=== PATIENT | male | born 1935 | race Caucasian/White ===

== ENCOUNTER 2018-06-23 08:48 | Emergency (ER) | payer OTHER ==
[2018-06-23 09:23] LABS: Absolute Monocytes 0.6 K/uL (0.1-1.3); Absolute Neutrophil 4.1 K/uL (1.8-8.0); Basophils % 0.9 % (0-1.3); Eosinophils % 4.2 % (0-4.4); Hematocrit 37.7 % (39.6-49.0); MPV 7.8 fL (7.6-11.3); Monocytes % 10.3 % (3.3-12.3); RBC Red Blood Cell Count 3.85 M/uL (4.33-5.43)
[2018-06-23 09:42] LABS: ALT/SGPT 22 U/L (12-78); AST/SGOT 21 U/L (15-37); Albumin 3.8 g/dL (3.4-5.0); Alkaline Phosphatase 64 U/L (45-117); BUN Blood Urea Nitrogen 25 mg/dL (7-18); Bicarbonate 26 mmol/L (21-32); Bilirubin Direct 0.1 mg/dL (0-0.2); Bilirubin Total 0.4 mg/dL (0.2-1.0); CKMB Creatine Kinase MB 4.7 ng/mL (0.3-3.6); Creatine Phosphokinase 160 U/L (39-308); Glucose Level 98 mg/dL (74-106); Lipase 81 U/L (73-393); Magnesium 2.2 mg/dL (1.8-2.4); NT PRO-BNP 382 pg/mL (<450); Potassium 3.7 mmol/L (3.5-5.1); Protein, Total 7.2 g/dL (6.4-8.2); Sodium Level 139 mmol/L (136-145); Troponin (Emerg Dept Use Only) < 0.02 ng/mL (0.0-0.045)
[2018-06-23 09:46] LABS: Protime INR 0.95
--- NOTE | 2018-06-23 09:57 | RAD REPORT ---
EXAM DESCRIPTION: RAD - Chest Single View - 06/23/2018 9:29 am CLINICAL HISTORY: Cough and congestion COMPARISON: February 2016 TECHNIQUE: AP portable chest image was obtained 0920 hours . FINDINGS: No peripheral mass or consolidation. Interstitial markings are prominent but not substanti ally different from comparison. Heart and vasculature are normal. No measurable pleural effusion and no pneumothorax. No acute bony abnormality seen. No acute aortic findings suspected. IMPRESSION: Chronic interstitial pattern similar to comparison. No focal mass or consolidation.
--- NOTE | 2018-06-23 10:33 | ER ---
Nurse's Notes [facility] Name: Brian Tavarez Age: 83 yrs Sex: Male : 1935 Arrival Date: 06/23/2018 Time: 08:51 Bed 6 Private MD: Kevin Patten V Diagnosis: Acute frontal sinusitis Presentation: 06/23 09:00 Presenting complaint: Patient states: on Tuesday had a lot of allergy symptoms, iw coughing, sneezing, then he felt better until last night he started coughing and vomiting from coughing so much, chest feels sore, denies fever. Transition of care: patient was not received from another setting of care. Onset of symptoms was June 18, 2018. Risk Assessment: Do you want to hurt yourself or someone else? Patient reports no desire to harm self or others. Initial Sepsis Screen: Does the patient meet any 2 criteria? No. Patient's initial sepsis screen is negative. Does the patient have a suspected source of infection?. Care prior to arrival: None. 09:00 Method Of Arrival: Ambulatory iw 09:00 Acuity: JOSE 3 iw Historical: - Allergies: 09:05 Codeine; iw 09:05 Morphine; iw 09:05 Tetanus Vaccines \\T\\ Toxoid; iw - Home Meds: 09:05 atorvastatin 80 mg Oral tab 1 tab once daily [Active]; clopidogrel 75 mg Oral tab 1 tab iw once daily [Active]; hydrochlorothiazide 25 mg Oral tab 1 tab once daily [Active]; levothyroxine 50 mcg tab 1 tab once daily [Active]; metoprolol succinate 50 mg Oral Tb24 0.5 tab twice a day [Active]; ranitidine HCl 150 mg Oral tab 1 tab 2 times per day [Active]; tamsulosin 0.4 mg Oral cp24 1 cap nightly [Active]; - PMHx: 09:05 Hyperlipidemia; Hypertension; Hypothyroidism; iw - PSHx: 09:05 carotid artery repair; iw - Immunization history:: Adult Immunizations up to date. - Social history:: Smoking status: Patient/guardian denies using tobacco, the patient reports quitting approximately 30 years ago, Patient/guardian denies using alcohol, street drugs, The patient lives with family. - Ebola Screening: : Patient negative for fever greater than or equal to 101.5 degrees Fahrenheit, and additional compatible Ebola Virus Disease symptoms Patient denies exposure to infectious person Patient denies travel to an Ebola-affected area in the 21 days before illness onset No symptoms or risks identified at this time. - Family history:: not pertinent. Screenin:16 Abuse screen: Denies threats or abuse. Denies injuries from another. Nutritional ss screening: No deficits noted. Tuberculosis screening: Never had TB. Fall Risk No fall in past 12 months (0 pts). No secondary diagnosis (0 pts). IV access (20 points). Ambulatory Aid- None/Bed Rest/Nurse Assist (0 pts). Gait- Normal/Bed Rest/Wheelchair (0 pts) Mental Status- Oriented to own ability (0 pts). Assessment: 09:26 General: Appears in no apparent distress. comfortable, Denies fever, fatigue, chills. ss Pain: Complains of pain in anterior aspect of left upper chest Pain does not radiate. Pain currently is 5 out of 10 on a pain scale. Quality of pain is described as "soreness from coughing" Pain began 2-3 days ago. Is continuous. Pain: Aggravated by coughing, sneezing. Neuro: Level of Consciousness is awake, alert, obeys commands, Oriented to person, place, time, situation, Speech is normal, Facial symmetry appears normal. Cardiovascular: Patient's skin is warm and dry. Pulses are palpable in right radial artery, right posterior tibial artery, left radial artery and left posterior tibial artery Edema is absent. Respiratory: Airway is patent Respiratory effort is even, unlabored, Respiratory pattern is regular, symmetrical. Derm: Skin is intact, is healthy with good turgor, Skin is dry, Skin is pink, warm \\T\\ dry. normal. 10:35 Reassessment: Patient appears in no apparent distress at this time. Patient and/or ss family updated on plan of care and expected duration. Pain level reassessed. Awaiting for Azithromycin dose to come from pharmacy. Pt has no complaints at this time other than a sore chest from coughing. Vital Signs: 09:06 BP 164 / 86; Pulse 81; Resp 18 S; Temp 98.1(TE); Pulse Ox 100% on R/A; Weight 81.65 kg; iw Height 5 ft. 9 in. (175.26 cm); Pain 0/10; 11:15 BP 152 / 84; Pulse 84; Resp 16; Pulse Ox 100% on R/A; Pain 4/10; ss 09:06 Body Mass Index 26.58 (81.65 kg, 175.26 cm) ED Course: 08:51 Patient arrived in ED. mr 08:52 Kevin Patten MD is Private Physician. mr 08:54 Nat Small MD is Attending Physician. ma2 09:00 Billie Womack, ROLAND is Primary Nurse. ss 09:04 Triage completed. iw 09:04 Inserted saline lock: 20 gauge in left antecubital area, using aseptic technique. Blood ss collected. 09:04 First set of blood cultures drawn. ss 09:06 Arm band placed on. iw 09:09 EKG done, by clinical research technician. reviewed by Nat Small MD. vh 09:16 Patient has correct armband on for positive identification. Placed in gown. Bed in low ss position. Call light in reach. Side rails up X 1. site monitor on. Pulse ox on. NIBP on. 09:16 Patient maintains SpO2 saturation greater than 95% on room air. ss 09:21 Second set of blood cultures drawn. ss 09:28 XRAY CXR (1 view) In Process Unspecified. EDMS 12:00 No provider procedures requiring assistance completed. IV discontinued, intact, ss bleeding controlled, No redness/swelling at site. Pressure dressing applied. Administered Medications: 10:35 Drug: MethylPrednisoLONE 125 mg Route: IVP; Site: left antecubital; ss 11:59 Follow up: Response: No adverse reaction ss 10:53 Drug: AZITHromycin 500 mg Route: IVPB; Infused Over: 1 hrs; Site: left antecubital; ss 12:00 Follow up: IV Status: Completed infusion; IV Intake: 250ml ss Intake: 12:00 IV: 250ml; Total: 250ml. ss Outcome: 10:32 Discharge ordered by . ma2 12:00 Discharged to home ambulatory. ss 12:00 Condition: good 12:00 Discharge instructions given to patient, Instructed on discharge instructions, follow up and referral plans. medication usage, Demonstrated understanding of instructions, follow-up care, medications, Prescriptions given X 3. 12:03 Patient left the ED. ss Signatures: Dispatcher [facility] Anastasiia Sen Irene, RN Billie Pan RN RN ss Lesvia Hayes Nat Small MD MD ma2
--- NOTE | 2018-06-23 10:33 | EDPHYS ---
Physician Documentation [facility] Name: Brian Tavarez Age: 83 yrs Sex: Male : 1935 Arrival Date: 06/23/2018 Time: 08:51 Bed 6 Private MD: Kevin Patten V ED Physician Nat Small HPI: 06/23 10:24 This 83 yrs old Male presents to ER via Ambulatory with complaints of Chest ma2 Pain, Congestion, Vomiting. 10:24 Duration:. Severity of pain: At its worst the pain was mild in the emergency department ma2 the pain is unchanged. The patient has not experienced similar symptoms in the past. patient has chronic cough and sinusitis he has congestion and his chest is sore from cough. . Historical: - Allergies: 09:05 Codeine; iw 09:05 Morphine; iw 09:05 Tetanus Vaccines \T\ Toxoid; iw - Home Meds: 09:05 atorvastatin 80 mg Oral tab 1 tab once daily [Active]; clopidogrel 75 mg Oral tab 1 tab iw once daily [Active]; hydrochlorothiazide 25 mg Oral tab 1 tab once daily [Active]; levothyroxine 50 mcg tab 1 tab once daily [Active]; metoprolol succinate 50 mg Oral Tb24 0.5 tab twice a day [Active]; ranitidine HCl 150 mg Oral tab 1 tab 2 times per day [Active]; tamsulosin 0.4 mg Oral cp24 1 cap nightly [Active]; - PMHx: 09:05 Hyperlipidemia; Hypertension; Hypothyroidism; iw - PSHx: 09:05 carotid artery repair; iw - Immunization history:: Adult Immunizations up to date. - Social history:: Smoking status: Patient/guardian denies using tobacco, the patient reports quitting approximately 30 years ago, Patient/guardian denies using alcohol, street drugs, The patient lives with family. - Ebola Screening: : Patient negative for fever greater than or equal to 101.5 degrees Fahrenheit, and additional compatible Ebola Virus Disease symptoms Patient denies exposure to infectious person Patient denies travel to an Ebola-affected area in the 21 days before illness onset No symptoms or risks identified at this time. - Family history:: not pertinent. ROS: 10:24 Constitutional: Negative for fever, chills, and weight loss, ENT: Negative for injury, ma2 pain, and discharge. 10:24 ENT: Positive for sinus pain, Negative for foreign body sensation, Teeth pain 10:24 Cardiovascular: Negative for chest pain, palpitations, paroxysmal nocturnal dyspnea, acute changes. 10:24 Respiratory: Positive for cough, Negative for dyspnea on exertion, orthopnea, pleurisy, sputum production, wheezing, acute changes. 10:24 All other systems are negative. Exam: 10:24 Constitutional: This is a well developed, well nourished patient who is awake, alert, ma2 and in no acute distress. 10:24 Eyes: Pupils equal round and reactive to light, extra-ocular motions intact. Lids and lashes normal. Conjunctiva and sclera are non-icteric and not injected. Cornea within normal limits. Periorbital areas with no swelling, redness, or edema. Neck: Trachea midline, no thyromegaly or masses palpated, and no cervical lymphadenopathy. Supple, full range of motion without nuchal rigidity, or vertebral point tenderness. No Meningismus. 10:24 Cardiovascular: Regular rate and rhythm with a normal S1 and S2. No gallops, murmurs, or rubs. Normal PMI, no JVD. No pulse deficits. Respiratory: Lungs have equal breath sounds bilaterally, clear to auscultation and percussion. No rales, rhonchi or wheezes noted. No increased work of breathing, no retractions or nasal flaring. Abdomen/GI: Soft, non-tender, with normal bowel sounds. No distension or tympany. No guarding or rebound. No evidence of tenderness throughout. MS/ Extremity: Pulses equal, no cyanosis. Neurovascular intact. Full, normal range of motion. Neuro: Awake and alert, GCS 15, oriented to person, place, time, and situation. Cranial nerves II-XII grossly intact. Motor strength 5/5 in all extremities. Sensory grossly intact. Cerebellar exam normal. Normal gait. 10:24 Head/face: Sinus tenderness, that is moderate. 10:24 ENT: Nose: nasal drainage, Posterior pharynx: erythema, that is mild. 10:24 Chest/axilla: Inspection: normal, Palpation: tenderness, that is moderate, of the anterior aspect of right upper chest, anterior aspect of left upper chest, right breast and left breast, Lymph nodes: Vital Signs: 09:06 BP 164 / 86; Pulse 81; Resp 18 S; Temp 98.1(TE); Pulse Ox 100% on R/A; Weight 81.65 kg; iw Height 5 ft. 9 in. (175.26 cm); Pain 0/10; 11:15 BP 152 / 84; Pulse 84; Resp 16; Pulse Ox 100% on R/A; Pain 4/10; ss 09:06 Body Mass Index 26.58 (81.65 kg, 175.26 cm) iw MDM: 08:54 Patient medically screened. md2 10:24 Differential diagnosis: chest wall pain, sinusitis, chest pain is not acs like and brice reproducibel on exam has URI and sinusitis, likely allergic, he is good historian and would like to go home. Data reviewed: vital signs, nurses notes, lab test result(s), EKG, radiologic studies. Counseling: I had a detailed discussion with the patient and/or guardian regarding: the historical points, exam findings, and any diagnostic results supporting the discharge/admit diagnosis, the presence of at least one elevated blood pressure reading (>120/80) during this emergency department visit, the need for outpatient follow up. Response to treatment: the patient's symptoms have markedly improved after treatment. 06/23 08:54 Order name: Blood Culture Adult (2) 06/23 08:54 Order name: BMP; Complete Time: 10:24 06/23 08:54 Order name: CBC with Diff; Complete Time: 10:24 06/23 08:54 Order name: Ckmb; Complete Time: 10:24 06/23 08:54 Order name: CPK; Complete Time: 10:24 06/23 08:54 Order name: D-Dimer; Complete Time: 10:24 06/23 08:54 Order name: XRAY CXR (1 view); Complete Time: 10:24 06/23 08:54 Order name: Hepatic Function; Complete Time: 10:24 06/23 08:54 Order name: Lipase; Complete Time: 10:24 06/23 08:54 Order name: Magnesium; Complete Time: 10:24 06/23 08:54 Order name: NT PRO-BNP; Complete Time: 10:24 06/23 08:54 Order name: PT-INR; Complete Time: 10:24 06/23 08:54 Order name: Ptt, Activated; Complete Time: :24 06/23 08:54 Order name: Troponin (emerg Dept Use Only); Complete Time: 10:24 06/23 08:54 Order name: EKG; Complete Time: 08:55 06/23 08:54 Order name: Cardiac monitoring; Complete Time: 09:20 06/23 08:54 Order name: EKG - Nurse/Tech; Complete Time: 09:20 06/23 08:54 Order name: IV Saline Lock; Complete Time: 09:06/23 08:54 Order name: Labs collected and sent; Complete Time: :06/23 08:54 Order name: O2 Per Protocol; Complete Time: :06/23 08:54 Order name: O2 Sat Monitoring; Complete Time: 09:21 Administered Medications: 10:35 Drug: MethylPrednisoLONE 125 mg Route: IVP; Site: left antecubital; ss 11:59 Follow up: Response: No adverse reaction ss 10:53 Drug: AZITHromycin 500 mg Route: IVPB; Infused Over: 1 hrs; Site: left antecubital; ss 12:00 Follow up: IV Status: Completed infusion; IV Intake: 250ml ss Disposition: 06/23/18 10:32 Discharged to Home. Impression: Acute frontal sinusitis. - Condition is Stable. - Prescriptions for Ibuprofen 800 mg Oral Tablet - take 1 tablet by ORAL route every 12 hours As needed take with food; 20 tablet. Zithromax Z- Lee 250 mg Oral Tablet - take 1 tablet by ORAL route as directed for 5 days Day 1 - take two (2) tablets one time. Day 2, 3, 4 , 5 take one (1) tablet once daily.; 6 tablet. Medrol (Lee) 4 mg Oral Tablets, Dose Pack - take 1 tablet by ORAL route as directed - follow package instructions; 1 packet. - Medication Reconciliation Form, Thank You Letter, Antibiotic Education, Prescription Opioid Use form. - Follow up: Private Physician; When: Tomorrow; Reason: If symptoms return, Continuance of care. Signatures: Dispatcher [facility] Kassandra Merlos RN RN Billie Womack RN RN Nat Small MD MD md2 Corrections: (The following items were deleted from the chart) 12:03 10:32 06/23/2018 10:32 Discharged to Home. Impression: Acute frontal sinusitis. ss Condition is Stable. Forms are Medication Reconciliation Form, Thank You Letter, Antibiotic Education, Prescription Opioid Use. Follow up: Private Physician; When: Tomorrow; Reason: If symptoms return, Continuance of care. ma2
[2018-06-23] MEDS ORDERED: METHYLPREDNISOLONE 125 MG INJ ONE (10:41)
[2018-06-23] MEDS ORDERED: AZITHROMYCIN IV 500 MG in NA CHLORIDE 0.9% 250 ML IVPB ONE (11:00)
--- NOTE | 2018-06-23 11:21 | EKG ---
Test Date: 2018-06-23 Test Time: 09:04:36 Blanking Machine Operator: BOOGIE MEASUREMENT RESULTS: Intervals: Rate: 77 DE: 194 QRSD: 94 QT: 398 QTc: 450 [place]: P: 75 DE: 194 QRS: 34 T: 43 INTERPRETIVE STATEMENTS: Sinus rhythm with premature atrial complexes Otherwise normal ECG Compared to ECG 02/10/2017 06:48:18 Aberrant conduction of supraventricular beat(s) no longer present Electronically Signed On 06-23-18 11:20:30 CDT by Jose Spear
[2018-06-23 12:17] VITALS: TEMP 98.1; O2SAT 100
[2018-06-23 12:18] VITALS: BP 152/84
== END 2018-06-23 12:03 | disposition home or self-care (01) ==
LOC: ER 08:48
DX: J01.10 Acute frontal sinusitis, unspecified (principal); I10 Essential (primary) hypertension; E03.9 Hypothyroidism, unspecified; E78.5 Hyperlipidemia, unspecified; Z88.6 Allergy status to analgesic agent
CPT/HCPCS: 96365; 93005; 87040 ×2; 85025; 80048; 36415; 83735; 82550; 85610; 85379; 80076; 85730; 84484; 82553; 83690; 83880; 71045; 96375; 99285; J0456; J2930

== ENCOUNTER 2018-11-17 10:19 | Emergency (ER) | payer OTHER ==
[2018-11-17] MEDS ORDERED: NA CHLORIDE 0.9% 1,000 ML ONE (10:47)
[2018-11-17] MEDS ORDERED: ONDANSETRON 4 MG/2 ML VIAL ONE (10:47)
[2018-11-17 10:57] LABS: Absolute Lymphocytes (CBC) 0.7 K/uL (0.7-4.9); Basophils % 1.3 % (0-1.3); Lymphocytes % 10.9 % (15.3-44.8); MPV 8.4 fL (7.6-11.3); RBC Red Blood Cell Count 3.88 M/uL (4.33-5.43)
[2018-11-17 11:11] LABS: Bilirubin Direct 0.1 mg/dL (0-0.2); Bilirubin Total 0.5 mg/dL (0.2-1.0); Protein, Total 7.2 g/dL (6.4-8.2)
[2018-11-17] MEDS ORDERED: NA CHLORIDE 0.9% 500 ML ONE (13:42)
--- NOTE | 2018-11-17 15:30 | EDPHYS ---
Physician Documentation [facility] Name: Brian Tavarez Age: 83 yrs Sex: Male : 1935 Arrival Date: 11/17/2018 Time: 10:24 Bed 13 Private MD: ED Physician Neri Arambula HPI: 11/17 16:32 This 83 yrs old Male presents to ER via EMS with complaints of General kdr Weakness. 18:29 The patient has had generalized weakness secondary to n/d/v for thef past three days. kdr He generally feels dehydrated. Onset: The symptoms/episode began/occurred gradually, 3 day(s) ago. Severity of symptoms: At their worst the symptoms were moderate in the emergency department the symptoms have improved moderately. The patient has not experienced similar symptoms in the past. The patient has not recently seen a physician. Historical: - Allergies: 10:26 Codeine; bp 10:26 Morphine; bp 10:26 Tetanus Vaccines \T\ Toxoid; bp - PMHx: 10:26 Hyperlipidemia; Hypertension; Hypothyroidism; Atrial Fib; Diabetes - NIDDM; bp - Immunization history:: Adult Immunizations up to date. - Social history:: Smoking status: Patient/guardian denies using tobacco. - Ebola Screening: : No symptoms or risks identified at this time. ROS: 18:29 Constitutional: Negative for fever, chills, and weight loss, Eyes: Negative for injury, kdr pain, redness, and discharge, ENT: Negative for injury, pain, and discharge, Neck: Negative for injury, pain, and swelling, Cardiovascular: Negative for chest pain, palpitations, and edema, Respiratory: Negative for shortness of breath, cough, wheezing, and pleuritic chest pain, Back: Negative for injury and pain, : Negative for injury, bleeding, discharge, and swelling, MS/Extremity: Negative for injury and deformity, Skin: Negative for injury, rash, and discoloration, Neuro: Negative for headache, weakness, numbness, tingling, and seizure activity. Psych: Negative for depression, anxiety, suicide ideation, homicidal ideation, and hallucinations, Allergy/Immunology: Negative for hives, rash, and allergies, Endocrine: Negative for neck swelling, polydipsia, polyuria, polyphagia, and marked weight changes, Hematologic/Lymphatic: Negative for swollen nodes, abnormal bleeding, and unusual bruising. 18:29 Abdomen/GI: Positive for nausea and vomiting, nausea, vomiting, and diarrhea, Negative for abdominal cramps, abdominal distension, anorexia, dysphagia, hematemesis, black/tarry stool, rectal pain. Exam: 18:29 Constitutional: This is a well developed, well nourished patient who is awake, alert, kdr and in no acute distress. Head/Face: Normocephalic, atraumatic. Eyes: Pupils equal round and reactive to light, extra-ocular motions intact. Lids and lashes normal. Conjunctiva and sclera are non-icteric and not injected. Cornea within normal limits. Periorbital areas with no swelling, redness, or edema. Neck: Trachea midline, no thyromegaly or masses palpated, and no cervical lymphadenopathy. Supple, full range of motion without nuchal rigidity, or vertebral point tenderness. No Meningismus. Chest/axilla: Normal chest wall appearance and motion. Nontender with no deformity. No lesions are appreciated. Cardiovascular: Regular rate and rhythm with a normal S1 and S2. No gallops, murmurs, or rubs. Normal PMI, no JVD. No pulse deficits. Respiratory: Lungs have equal breath sounds bilaterally, clear to auscultation and percussion. No rales, rhonchi or wheezes noted. No increased work of breathing, no retractions or nasal flaring. Abdomen/GI: Soft, non-tender, with normal bowel sounds. No distension or tympany. No guarding or rebound. No evidence of tenderness throughout. Back: No spinal tenderness. No costovertebral tenderness. Full range of motion. Skin: Warm, dry with normal turgor. Normal color with no rashes, no lesions, and no evidence of cellulitis. MS/ Extremity: Pulses equal, no cyanosis. Neurovascular intact. Full, normal range of motion. Neuro: Awake and alert, GCS 15, oriented to person, place, time, and situation. Cranial nerves II-XII grossly intact. Motor strength 5/5 in all extremities. Sensory grossly intact. Cerebellar exam normal. Normal gait. Psych: Awake, alert, with orientation to person, place and time. Behavior, mood, and affect are within normal limits. 18:29 Abdomen/GI: Inspection: abdomen appears normal, Bowel sounds: normal, Palpation: abdomen is soft and non-tender. Vital Signs: 10:26 BP 163 / 78; Pulse 77; Resp 23; Temp 98; Pulse Ox 97% 2 lpm ; Weight 86.18 kg; Height 5 bp ft. 9 in. (175.26 cm); 11:24 BP 144 / 80; Pulse 76; Resp 11; Pulse Ox 99% ; bp 13:30 BP 137 / 81; Pulse 76; Resp 11; Pulse Ox 95% ; bp 15:00 BP 113 / 67; Pulse 78; Resp 15; Pulse Ox 92% ; bp 10:26 Body Mass Index 28.06 (86.18 kg, 175.26 cm) bp MDM: 15:29 Patient medically screened. kdr 18:29 Data reviewed: vital signs, nurses notes. Special discussion: Based on the patient's kdr Hx, exam, and Dx evaluation, there is no indication for emergent surgery or inpatient Tx. It is understood by the patient/guardian that if the Sx's persist or worsen they need to return immediately for re-evaluation. I discussed with the patient/guardian in detail that at this point there is no indication for admission to the hospital. It is understood, however, that if the symptoms persist or worsen the patient needs to return immediately for re-evaluation. 11/17 10:35 Order name: Basic Metabolic Panel; Complete Time: 12:44 kdr 11/17 10:35 Order name: CBC with Diff; Complete Time: 12:44 kdr 11/17 10:35 Order name: Creatinine for Radiology; Complete Time: 12:44 kdr 11/17 10:35 Order name: Hepatic Function; Complete Time: 12:44 kdr 11/17 10:35 Order name: Lipase; Complete Time: 12:44 kdr 11/17 10:35 Order name: IV Saline Lock; Complete Time: 10:37 kdr 11/17 10:35 Order name: Labs collected and sent; Complete Time: 10:51 kdr 11/17 12:57 Order name: EKG Electrocardiogram; Complete Time: 13:47 EDMS Administered Medications: 10:45 Drug: NS 0.9% 1000 ml Route: IV; Rate: 1 bolus; Site: left antecubital; bp 12:00 Follow up: IV Status: Completed infusion; IV Intake: 1000ml bp 10:45 Drug: Zofran 4 mg Route: IVP; Site: left antecubital; bp 13:47 Follow up: Response: Nausea is decreased bp 13:47 Drug: NS 0.9% 500 ml Route: IV; Rate: bolus; Site: left antecubital; bp 14:30 Follow up: IV Status: Completed infusion; IV Intake: 500ml bp Disposition: 11/17/18 15:29 Discharged to Home. Impression: Nausea and vomiting, Diarrhea, unspecified. - Condition is Stable. - Discharge Instructions: Nausea and Vomiting, Adult, [id number], Diarrhea, Adult, [id number]. - Prescriptions for Zofran 4 mg Oral Tablet - take 1 tablet by ORAL route every 4-6 hours As needed; 16 tablet. - Medication Reconciliation Form, Thank You Letter form. - Follow up: Private Physician; When: 2 - 3 days; Reason: If symptoms return, Further diagnostic work-up, Recheck today's complaints, Continuance of care, Re-evaluation by your physician. - Problem is new. - Symptoms are resolved. Signatures: Dispatcher [employer] EDMS Neri Arambula MD MD kdr Wilian Cano, RN RN bp Corrections: (The following items were deleted from the chart) 15:50 15:29 11/17/2018 15:29 Discharged to Home. Impression: Nausea and vomiting; Diarrhea, bp unspecified. Condition is Stable. Forms are Medication Reconciliation Form, Thank You Letter, Antibiotic Education, Prescription Opioid Use. Follow up: Private Physician; When: 2 - 3 days; Reason: If symptoms return, Further diagnostic work-up, Recheck today's complaints, Continuance of care, Re-evaluation by your physician. Problem is new. Symptoms are resolved. kdr
--- NOTE | 2018-11-17 15:30 | ER ---
Nurse's Notes [facility] Name: Brian Tavarez Age: 83 yrs Sex: Male : 1935 Arrival Date: 11/17/2018 Time: 10:24 Bed 13 Private MD: Diagnosis: Nausea and vomiting;Diarrhea, unspecified Presentation: 11/17 10:24 Presenting complaint: EMS states: GENERAL WEAKNESS x3 DAYS WITH NAUSEA. Transition of bp care: patient was not received from another setting of care. Onset of symptoms is unknown. Risk Assessment: Do you want to hurt yourself or someone else? Patient reports no desire to harm self or others. Initial Sepsis Screen: Does the patient meet any 2 criteria? No. Patient's initial sepsis screen is negative. Does the patient have a suspected source of infection? No. Patient's initial sepsis screen is negative. Care prior to arrival: IV initiated. 20 GA, in the right antecubital area, Glucose check: 131 Oxygen administered. via nasal cannula. 10:24 Method Of Arrival: EMS: [facility] bp 10:24 Acuity: JOSE 2 bp Triage Assessment: 10:30 General: Appears in no apparent distress. comfortable, Behavior is cooperative, bp appropriate for age, anxious. Pain: Denies pain. EENT: Reports pain when swallowing. Neuro: No deficits noted. Reports weakness. Cardiovascular: No deficits noted. Respiratory: No deficits noted. GI: GI: Reports nausea. : No signs and/or symptoms were reported regarding the genitourinary system. Derm: No deficits noted. Musculoskeletal: No deficits noted. Historical: - Allergies: 10:26 Codeine; bp 10:26 Morphine; bp 10:26 Tetanus Vaccines \T\ Toxoid; bp - PMHx: 10:26 Hyperlipidemia; Hypertension; Hypothyroidism; Atrial Fib; Diabetes - NIDDM; bp - Immunization history:: Adult Immunizations up to date. - Social history:: Smoking status: Patient/guardian denies using tobacco. - Ebola Screening: : No symptoms or risks identified at this time. Screenin:53 Abuse screen: Denies threats or abuse. Denies injuries from another. Nutritional bp screening: No deficits noted. Tuberculosis screening: No symptoms or risk factors identified. Fall Risk None identified. Assessment: 10:30 General: SEE TRIAGE NOTE. bp 11:23 Reassessment: Patient and/or family updated on plan of care and expected duration. Pain bp level reassessed. Patient is alert, oriented x 3, equal unlabored respirations, skin warm/dry/pink. IVF INFUSING. 13:33 Reassessment: Patient and/or family updated on plan of care and expected duration. Pain bp level reassessed. Patient is alert, oriented x 3, equal unlabored respirations, skin warm/dry/pink. ALL CURRENT ORDERS COMPLETED, DISPO PENDING. 15:10 Reassessment: DISPO ON HOLD FOR PROVIDER RE-EVAL. bp 15:47 Reassessment: PT D/C HOME VIA TAXI, DX WITH ADULT NAUSEA AND VOMITING. bp Vital Signs: 10:26 BP 163 / 78; Pulse 77; Resp 23; Temp 98; Pulse Ox 97% 2 lpm ; Weight 86.18 kg; Height 5 bp ft. 9 in. (175.26 cm); 11:24 BP 144 / 80; Pulse 76; Resp 11; Pulse Ox 99% ; bp 13:30 BP 137 / 81; Pulse 76; Resp 11; Pulse Ox 95% ; bp 15:00 BP 113 / 67; Pulse 78; Resp 15; Pulse Ox 92% ; bp 10:26 Body Mass Index 28.06 (86.18 kg, 175.26 cm) bp ED Course: 10:24 Patient arrived in ED. bp 10:25 Triage completed. bp 10:25 Neri Arambula MD is Attending Physician. kdr 10:26 EKG done, by principal technical writer. reviewed by Neri Arambula MD. at1 10:26 Arm band placed on. bp 10:30 Maintain EMS IV. Dressing intact. Good blood return noted. Site clean \T\ dry. Gauge \T\ bp site: 20 GAUGE LEFT AC. 10:37 Wilian Cano, RN is Primary Nurse. bp 10:53 Patient has correct armband on for positive identification. Bed in low position. Call bp light in reach. Side rails up X2. 15:48 No provider procedures requiring assistance completed. IV discontinued, intact, bp bleeding controlled, No redness/swelling at site. Pressure dressing applied. Administered Medications: 10:45 Drug: NS 0.9% 1000 ml Route: IV; Rate: 1 bolus; Site: left antecubital; bp 12:00 Follow up: IV Status: Completed infusion; IV Intake: 1000ml bp 10:45 Drug: Zofran 4 mg Route: IVP; Site: left antecubital; bp 13:47 Follow up: Response: Nausea is decreased bp 13:47 Drug: NS 0.9% 500 ml Route: IV; Rate: bolus; Site: left antecubital; bp 14:30 Follow up: IV Status: Completed infusion; IV Intake: 500ml bp Intake: 12:00 IV: 1000ml; Total: 1000ml. bp 14:30 IV: 500ml; Total: 1500ml. bp Outcome: 15:29 Discharge ordered by . kdr 15:48 Discharged to home ambulatory. bp 15:48 Condition: stable 15:48 Discharge instructions given to patient, Instructed on discharge instructions, follow up and referral plans. medication usage, Demonstrated understanding of instructions, follow-up care, medications, Prescriptions given X 1. 15:50 Patient left the ED. bp Signatures: Neri Arambula MD MD kdr Jolanta Soria, medical library assistant EKG Tat1 Wilian Cano, RN RN bp
[2018-11-17 15:57] VITALS: TEMP 98
[2018-11-17 16:01] VITALS: BP 113/67; O2SAT 92
--- NOTE | 2018-11-18 14:18 | EKG ---
Test Date: 2018-11-17 Test Time: 10:23:12 [place]: ADONIS MEASUREMENT RESULTS: Intervals: Rate: 81 OH: 204 QRSD: 84 QT: 402 QTc: 466 [place]: P: 25 OH: 204 QRS: 51 T: 57 INTERPRETIVE STATEMENTS: Sinus rhythm with premature atrial complexes and premature ventricular complexes or fusion complexes Otherwise normal ECG Compared to ECG 06/23/2018 09:04:36 Fusion complex(es) now present Ventricular premature complex(es) now present Electronically Signed On 11-18-18 14:13:51 CDT by Jose Spear
== END 2018-11-17 15:50 | disposition home or self-care (01) ==
LOC: ER 10:19
DX: R19.7 Diarrhea, unspecified (principal); I10 Essential (primary) hypertension; R53.1 Weakness; Z88.5 Allergy status to narcotic agent; Z88.7 Allergy status to serum and vaccine
CPT/HCPCS: 96361; 93005; 85025; 80048; 36415; 80076; 83690; 96374; 99284; J7030; J2405

== ENCOUNTER 2018-11-22 09:32 | Emergency (ER) | payer OTHER ==
[2018-11-22 10:33] LABS: Absolute Lymphocytes (CBC) 0.9 K/uL (0.7-4.9); Basophils % 1.4 % (0-1.3); Hematocrit 38.2 % (39.6-49.0); Lymphocytes % 15.3 % (15.3-44.8); MPV 8.7 fL (7.6-11.3); RBC Red Blood Cell Count 3.89 M/uL (4.33-5.43)
[2018-11-22] MEDS ORDERED: ONDANSETRON 4 MG/2 ML VIAL ONE (10:49)
[2018-11-22 10:55] LABS: Albumin 3.8 g/dL (3.4-5.0); Bilirubin Direct 0.2 mg/dL (0-0.2); Bilirubin Total 0.6 mg/dL (0.2-1.0); Potassium 3.9 mmol/L (3.5-5.1); Protein, Total 7.8 g/dL (6.4-8.2)
--- NOTE | 2018-11-22 12:22 | RAD REPORT ---
EXAM DESCRIPTION: CT - Abdomen Pelvis W Contrast - 11/22/2018 11:59 am CLINICAL HISTORY: Abdominal pain. COMPARISON: 2009 TECHNIQUE: Computed axial tomography of the abdomen and pelvis was obtained. 100 cc Isovue-300 is ad ministered intravenously. Oral contrast was given. All CT scans are performed using dose optimization technique as appropriate and may include automated exposure control or mA/KV adjustment according to patient size. FINDINGS: Mild to moderate interstitial lung opacities within the bases has the appearance of pulmonary fibrosi s Small hepatic cysts are present. Spleen, pancreas, and adrenals appear unremarkable. Small renal cysts The appendix is normal caliber. There is no evidence of diverticulitis Small soft tissue structure lower anterior right pelvis unchanged from 2009 is benign Small left inguinal hernia contains fat A moderate amount of stool within the colon Duodenal diverticulum. Small hiatal hernia IMPRESSION: A moderate amount of stool within the colon
--- NOTE | 2018-11-22 12:35 | EDPHYS ---
Physician Documentation [facility] Name: Brian Tavarez Age: 83 yrs Sex: Male : 1935 Arrival Date: 11/22/2018 Time: 09:34 Bed 2 Private MD: Kevin Patten V ED Physician Neri Arambula HPI: 11/22 10:59 This 83 yrs old Male presents to ER via Ambulatory with complaints of pm1 Abdominal Pain - Swelling. 10:59 The patient presents with abdominal pain in the lower abdomen, abdominal distention pm1 that is diffuse. Onset: The symptoms/episode began/occurred 1 week(s) ago. The symptoms do not radiate. Associated signs and symptoms: Pertinent positives: Constipation for 1 week, vomiting x 1, Pertinent negatives: chest pain, dysuria, fever, headache, shortness of breath. The symptoms are described as crampy. Modifying factors: The symptoms are alleviated by nothing, the symptoms are aggravated by nothing. Severity of pain: in the emergency department the pain is actually worse. The patient has experienced similar episodes in the past, multiple times, has had constipation throughout his life. Can typically take Miralax and it resolves his constipation. Historical: - Allergies: 10:23 Codeine; iw 10:23 Morphine; iw 10:23 Tetanus Vaccines \T\ Toxoid; iw - Home Meds: 10:30 atorvastatin 80 mg Oral tab 1 tab once daily [Active]; clopidogrel 75 mg Oral tab 1 tab iw once daily [Active]; levothyroxine 50 mcg tab 1 tab once daily [Active]; tamsulosin 0.4 mg Oral cp24 1 cap nightly [Active]; Albuterol Inhl as needed [Active]; triamterene-hydrochlorothiazid 37.5-25 mg Oral cap 1 cap once daily [Active]; amlodipine 5 mg tab 1 tab once daily [Active]; naltrexone oral 1.5 mg oral nightly [Active]; gabapentin 100 mg oral cap nightly [Active]; ranitidine HCl 75 mg Oral tab 1 tab once daily [Active]; - PMHx: 10:30 Atrial Fib; Diabetes - NIDDM; Hyperlipidemia; Hypertension; Hypothyroidism; iw - PSHx: 10:30 Hernia repair; Carotid surgery; iw - Immunization history:: Adult Immunizations up to date. - Social history:: Smoking status: Patient/guardian denies using tobacco. - Ebola Screening: : Patient negative for fever greater than or equal to 101.5 degrees Fahrenheit, and additional compatible Ebola Virus Disease symptoms Patient denies exposure to infectious person Patient denies travel to an Ebola-affected area in the 21 days before illness onset No symptoms or risks identified at this time. ROS: 10:59 Constitutional: Negative for fever, chills, and weight loss, Eyes: Negative for injury, pm1 pain, redness, and discharge, ENT: Negative for injury, pain, and discharge, Neck: Negative for injury, pain, and swelling, Cardiovascular: Negative for chest pain, palpitations, and edema, Respiratory: Negative for shortness of breath, cough, wheezing, and pleuritic chest pain. 10:59 Back: Negative for injury and pain, : Negative for injury, bleeding, discharge, and swelling, MS/Extremity: Negative for injury and deformity, Skin: Negative for injury, rash, and discoloration, Neuro: Negative for headache, weakness, numbness, tingling, and seizure. 10:59 Abdomen/GI: Positive for abdominal pain, constipation, vomit x 1, Negative for diarrhea. Exam: 10:59 Constitutional: This is a well developed, well nourished patient who is awake, alert, pm1 and in no acute distress. Head/Face: Normocephalic, atraumatic. Eyes: Pupils equal round and reactive to light, extra-ocular motions intact. Lids and lashes normal. Conjunctiva and sclera are non-icteric and not injected. Cornea within normal limits. Periorbital areas with no swelling, redness, or edema. ENT: Nares patent. No nasal discharge, no septal abnormalities noted. Tympanic membranes are normal and external auditory canals are clear. Oropharynx with no redness, swelling, or masses, exudates, or evidence of obstruction, uvula midline. Mucous membranes moist. Neck: Trachea midline, no thyromegaly or masses palpated, and no cervical lymphadenopathy. Supple, full range of motion without nuchal rigidity, or vertebral point tenderness. No Meningismus. Chest/axilla: Normal chest wall appearance and motion. Nontender with no deformity. No lesions are appreciated. Cardiovascular: Regular rate and rhythm with a normal S1 and S2. No gallops, murmurs, or rubs. Normal PMI, no JVD. No pulse deficits. Respiratory: Lungs have equal breath sounds bilaterally, clear to auscultation and percussion. No rales, rhonchi or wheezes noted. No increased work of breathing, no retractions or nasal flaring. Abdomen/GI: Soft, non-tender, with normal bowel sounds. No distension or tympany. No guarding or rebound. No evidence of tenderness throughout. Back: No spinal tenderness. No costovertebral tenderness. Full range of motion. Skin: Warm, dry with normal turgor. Normal color with no rashes, no lesions, and no evidence of cellulitis. MS/ Extremity: Pulses equal, no cyanosis. Neurovascular intact. Full, normal range of motion. 10:59 Neuro: Orientation: is normal, Mentation: is normal, Motor: is normal, moves all fours, Sensation: is normal, no obvious gross deficits. Vital Signs: 10:24 BP 161 / 87; Pulse 89; Resp 16 S; Temp 98.0; Pulse Ox 97% on R/A; Weight 85.28 kg; iw Height 5 ft. 9 in. (175.26 cm); Pain 2/10; 11:00 BP 151 / 82; Pulse 76; Resp 16 S; Pulse Ox 98% on R/A; aa5 11:43 BP 127 / 77; Pulse 69; Resp 16; Pulse Ox 98% ; sv 10:24 Body Mass Index 27.76 (85.28 kg, 175.26 cm) iw MDM: 10:11 Patient medically screened. pm1 11:04 Data reviewed: vital signs. Data interpreted: Pulse oximetry: on room air is 97 %. pm1 Interpretation: normal. 12:32 Counseling: I had a detailed discussion with the patient and/or guardian regarding: the pm1 historical points, exam findings, and any diagnostic results supporting the discharge/admit diagnosis, lab results, radiology results, the need for outpatient follow up, to return to the emergency department if symptoms worsen or persist or if there are any questions or concerns that arise at home. 11/22 10:30 Order name: Basic Metabolic Panel; Complete Time: 10:58 EDMS 11/22 10:15 Order name: IV Saline Lock; Complete Time: 10:16 pm1 11/22 10:15 Order name: Labs collected and sent; Complete Time: 10:16 pm1 11/22 10:15 Order name: CT Abd/Pelvis - PO and IV Contrast; Complete Time: 12:29 pm1 11/22 10:30 Order name: Liver (Hepatic) Function; Complete Time: 10:58 EDMS 11/22 10:30 Order name: Lipase; Complete Time: 10:58 EDMS 11/22 10:30 Order name: Creatinine (Radiology Only); Complete Time: 10:58 EDMS 11/22 10:33 Order name: CBC with Automated Diff; Complete Time: 10:58 EDMS Administered Medications: 10:48 Drug: Zofran 4 mg Route: IVP; Site: left antecubital; aa5 11:00 Follow up: Response: No adverse reaction; Nausea is decreased aa5 Disposition: 16:01 Co-signature as Attending Physician, Neri Arambula MD I agree with the assessment and kdr plan of care. Disposition: 11/22/18 12:34 Discharged to Home. Impression: Constipation. - Condition is Stable. - Discharge Instructions: Constipation, Adult. - Prescriptions for Lactulose 10 gram/15 mL Oral Solution - take 30 milliliter by ORAL route once daily; 300 milliliter. - Medication Reconciliation Form, Thank You Letter, Antibiotic Education, Prescription Opioid Use form. - Follow up: Emergency Department; When: As needed; Reason: Worsening of condition. Follow up: Private Physician; When: 2 - 3 days; Reason: Recheck today's complaints, Continuance of care, Re-evaluation by your physician. - Problem is new. - Symptoms have improved. Signatures: Dispatcher [employer] EDLA Neri Arambula MD MD [facility] Kassandra Rose RN RN iw Park Grimes RN RN aa5 Duncan Serrano NP EMERGENCY PREPAREDNESS COORDINATOR pm1 Corrections: (The following items were deleted from the chart) 13:09 12:34 11/22/2018 12:34 Discharged to Home. Impression: Constipation. Condition is aa5 Stable. Forms are Medication Reconciliation Form, Thank You Letter, Antibiotic Education, Prescription Opioid Use. Follow up: Emergency Department; When: As needed; Reason: Worsening of condition. Follow up: Private Physician; When: 2 - 3 days; Reason: Recheck today's complaints, Continuance of care, Re-evaluation by your physician. Problem is new. Symptoms have improved. pm1
--- NOTE | 2018-11-22 12:35 | ER ---
Nurse's Notes [facility] Name: Brian Tavarez Age: 83 yrs Sex: Male : 1935 Arrival Date: 11/22/2018 Time: 09:34 Bed 2 Private MD: Kevin Patten V Diagnosis: Constipation Presentation: 11/22 10:20 Presenting complaint: Patient states: has not had BM X 1 week, has been taking laxative iw and stool softeners, now has abd distention, vomited once last night, was seen here recently for dehydration. Transition of care: patient was not received from another setting of care. Onset of symptoms was November 15, 2018. Risk Assessment: Do you want to hurt yourself or someone else? Patient reports no desire to harm self or others. Initial Sepsis Screen: Does the patient meet any 2 criteria? No. Patient's initial sepsis screen is negative. Does the patient have a suspected source of infection? No. Patient's initial sepsis screen is negative. Care prior to arrival: None. 10:20 Method Of Arrival: Ambulatory iw 10:20 Acuity: JOSE 3 iw Historical: - Allergies: 10:23 Codeine; iw 10:23 Morphine; iw 10:23 Tetanus Vaccines \T\ Toxoid; iw - Home Meds: 10:30 atorvastatin 80 mg Oral tab 1 tab once daily [Active]; clopidogrel 75 mg Oral tab 1 tab iw once daily [Active]; levothyroxine 50 mcg tab 1 tab once daily [Active]; tamsulosin 0.4 mg Oral cp24 1 cap nightly [Active]; Albuterol Inhl as needed [Active]; triamterene-hydrochlorothiazid 37.5-25 mg Oral cap 1 cap once daily [Active]; amlodipine 5 mg tab 1 tab once daily [Active]; naltrexone oral 1.5 mg oral nightly [Active]; gabapentin 100 mg oral cap nightly [Active]; ranitidine HCl 75 mg Oral tab 1 tab once daily [Active]; - PMHx: 10:30 Atrial Fib; Diabetes - NIDDM; Hyperlipidemia; Hypertension; Hypothyroidism; iw - PSHx: 10:30 Hernia repair; Carotid surgery; iw - Immunization history:: Adult Immunizations up to date. - Social history:: Smoking status: Patient/guardian denies using tobacco. - Ebola Screening: : Patient negative for fever greater than or equal to 101.5 degrees Fahrenheit, and additional compatible Ebola Virus Disease symptoms Patient denies exposure to infectious person Patient denies travel to an Ebola-affected area in the 21 days before illness onset No symptoms or risks identified at this time. Screenin:25 Abuse screen: Denies threats or abuse. Nutritional screening: No deficits noted. aa5 Tuberculosis screening: No symptoms or risk factors identified. Fall Risk None identified. Assessment: 10:25 General: Appears comfortable, Behavior is calm, cooperative. Pain: Complains of pain in aa5 right upper quadrant, left upper quadrant, right lower quadrant and left lower quadrant Pain does not radiate. Pain currently is 2 out of 10 on a pain scale. Quality of pain is described as aching, Pain began 2-3 days ago. Is continuous. Neuro: Level of Consciousness is awake, alert, obeys commands, Oriented to person, place, time, situation. Cardiovascular: Heart tones S1 S2 present Patient's skin is warm and dry. Edema is absent. Rhythm is irregular. Respiratory: Airway is patent Respiratory effort is even, unlabored, Respiratory pattern is regular, symmetrical. GI: Abdomen is distended, Bowel sounds present X 4 quads. Abd is soft and non tender X 4 quads. Reports constipation, Reports 1 vomiting episode yesterday. Patient currently denies nausea, vomiting. : No signs and/or symptoms were reported regarding the genitourinary system. EENT: No signs and/or symptoms were reported regarding the EENT system. Derm: Skin is pink, warm \T\ dry. Musculoskeletal: Range of motion: intact in all extremities. 10:43 Reassessment: Pt finished CT oral contrast, CT notified. . aa5 10:48 Reassessment: Pt c/o nausea after drinking CT oral contrast, provider notified. . aa5 11:00 Reassessment: Patient is alert, oriented x 3, equal unlabored respirations, skin aa5 warm/dry/pink. Nausea has improved. . 11:45 Reassessment: Patient is alert, oriented x 3, equal unlabored respirations, skin aa5 warm/dry/pink. 11:45 Pain: Pain currently is 1 out of 10 on a pain scale. aa5 13:05 Reassessment: Patient is alert, oriented x 3, equal unlabored respirations, skin aa5 warm/dry/pink. Vital Signs: 10:24 BP 161 / 87; Pulse 89; Resp 16 S; Temp 98.0; Pulse Ox 97% on R/A; Weight 85.28 kg; iw Height 5 ft. 9 in. (175.26 cm); Pain 2/10; 11:00 BP 151 / 82; Pulse 76; Resp 16 S; Pulse Ox 98% on R/A; aa5 11:43 BP 127 / 77; Pulse 69; Resp 16; Pulse Ox 98% ; sv 10:24 Body Mass Index 27.76 (85.28 kg, 175.26 cm) iw ED Course: 09:34 Patient arrived in ED. as 09:35 Kevin Patten MD is Private Physician. as 10:03 Duncan [facility]errano [facility]. pm1 10:03 Neri Arambula MD is Attending Physician. pm1 10:06 Park Grimes RN is Primary Nurse. aa5 10:15 Initial lab(s) drawn, by me, sent to lab. Inserted saline lock: 20 gauge in left jb1 antecubital area, using aseptic technique. Blood collected. 10:22 Triage completed. iw 10:24 Arm band placed on. iw 10:25 Patient has correct armband on for positive identification. Placed in gown. Bed in low aa5 position. Call light in reach. Side rails up X2. 10:29 Basic Metabolic Panel Sent. sv 10:29 CBC with Diff Sent. sv 10:29 Creatinine for Radiology Sent. sv 10:29 Hepatic Function Sent. sv 10:29 Lipase Sent. sv 12:01 CT Abd/Pelvis - PO and IV Contrast In Process Unspecified. EDMS 13:02 No provider procedures requiring assistance completed. IV discontinued, intact, aa5 bleeding controlled, No redness/swelling at site. Pressure dressing applied. Administered Medications: 10:48 Drug: Zofran 4 mg Route: IVP; Site: left antecubital; aa5 11:00 Follow up: Response: No adverse reaction; Nausea is decreased aa5 Outcome: 12:34 Discharge ordered by . pm1 13:05 Discharged to home ambulatory. aa5 13:05 Condition: stable 13:05 Discharge instructions given to patient, Instructed on discharge instructions, follow up and referral plans. medication usage, Demonstrated understanding of instructions, follow-up care, medications, Prescriptions given X 1. 13:09 Patient left the ED. aa5 Signatures: Dispatcher [employer] EDRikki Salvador jb1 Sharon Gray, RN RN Jeannette Teixeira Irene, RN RN iw Calderon, Audri, RN RN aa5 Duncan Serrano, PROCESSOR INSPECTOR PROCESSOR INSPECTOR pm1
[2018-11-22 13:23] VITALS: TEMP 98
[2018-11-22 13:25] VITALS: O2SAT 98
[2018-11-22 13:26] VITALS: BP 127/77
== END 2018-11-22 13:09 | disposition home or self-care (01) ==
LOC: ER 09:32
DX: K59.00 Constipation, unspecified (principal); I10 Essential (primary) hypertension; E78.5 Hyperlipidemia, unspecified; E11.9 Type 2 diabetes mellitus without complications; I48.91 Unspecified atrial fibrillation; E03.9 Hypothyroidism, unspecified; Z88.5 Allergy status to narcotic agent; Z88.7 Allergy status to serum and vaccine
CPT/HCPCS: 85025; 80048; 36415; 80076; 83690; 74177; Q9967; J2405

== ENCOUNTER 2018-12-11 17:08 | Inpatient (IN) | payer OTHER ==
[2018-12-11 17:54] LABS: Absolute Lymphocytes (CBC) 0.4 K/uL (0.7-4.9); Basophils % 0.7 % (0-1.3); Hematocrit 35.7 % (39.6-49.0); MPV 8.6 fL (7.6-11.3); RBC Red Blood Cell Count 3.63 M/uL (4.33-5.43)
[2018-12-11] MEDS ORDERED: ONDANSETRON 4 MG/2 ML VIAL ONE (17:59)
[2018-12-11] MEDS ORDERED: CEFTRIAXONE/SWI 1gm 1 GM/10 ML SYR ONE (17:59)
[2018-12-11] MEDS ORDERED: ALBUTEROL 2.5 MG/3 ML NEB SOL ONE (17:59)
[2018-12-11] MEDS ORDERED: IPRATROPIUM BROM 0.5MG/2.5ML ONE (17:59)
[2018-12-11] MEDS ORDERED: NA CHLORIDE 0.9% 1,000 ML ONE (17:59)
[2018-12-11] MEDS ORDERED: ACETAMINOPHEN 500 MG TAB ONE (17:59)
[2018-12-11 18:00] LABS: Protime INR 1.19
[2018-12-11 18:12] LABS: ALT/SGPT 16 U/L (12-78); AST/SGOT 19 U/L (15-37); Albumin 3.4 g/dL (3.4-5.0); Alkaline Phosphatase 59 U/L (45-117); BUN Blood Urea Nitrogen 20 mg/dL (7-18); Bicarbonate 25 mmol/L (21-32); Bilirubin Direct 0.3 mg/dL (0-0.2); Bilirubin Total 0.8 mg/dL (0.2-1.0); CKMB Creatine Kinase MB 1.8 ng/mL (0.3-3.6); Creatine Phosphokinase 132 U/L (39-308); Glucose Level 114 mg/dL (74-106); Lipase 45 U/L (73-393); NT PRO-BNP 2182 pg/mL (<450); Potassium 3.6 mmol/L (3.5-5.1); Protein, Total 7.4 g/dL (6.4-8.2); Sodium Level 136 mmol/L (136-145); Troponin (Emerg Dept Use Only) < 0.02 ng/mL (0.0-0.045)
--- NOTE | 2018-12-11 18:47 | RAD REPORT ---
EXAM DESCRIPTION: RAD - Chest Single View - 12/11/2018 6:33 pm CLINICAL HISTORY: CONGESTION Chest pain. COMPARISON: <Comparisons> FINDINGS: Portable technique limits examination quality. Mild interstitial pulmonary edema. The heart is moderately size. No displaced fractures. IMPRESSION: Mild CHF.
[2018-12-11] MEDS ORDERED: NA CHLORIDE 0.9% 250 ML ONE (19:13)
[2018-12-11] MEDS ORDERED: AZITHROMYCIN 500 MG INJ IVPB ONE (19:13)
--- NOTE | 2018-12-11 19:17 | ER ---
Nurse's Notes [facility] Name: Brian Tavarez Age: 83 yrs Sex: Male : 1935 Arrival Date: 12/11/2018 Time: 17:09 Bed 8 Private MD: Kevin Patten V Diagnosis: Pneumonia due to other specified infectious organisms Presentation: 12/11 17:26 Presenting complaint: Patient states: COUGH AND CONGESTION, AFTER TWO OUTPATIENT ABX ss COURSES. Transition of care: patient was not received from another setting of care. Onset of symptoms is unknown. Risk Assessment: Do you want to hurt yourself or someone else? Patient reports no desire to harm self or others. Initial Sepsis Screen: Does the patient meet any 2 criteria? No. Patient's initial sepsis screen is negative. Does the patient have a suspected source of infection? No. Patient's initial sepsis screen is negative. Care prior to arrival: None. 17:26 Method Of Arrival: Ambulatory ss 17:26 Acuity: JOSE 3 ss Triage Assessment: 17:30 General: Appears in no apparent distress. Behavior is calm, cooperative, appropriate tw2 for age. Pain: Denies pain. Respiratory: Reports cough that is productive. Historical: - Allergies: 17:25 Codeine; ss 17:25 Morphine; ss 17:25 Tetanus Vaccines \T\ Toxoid; ss - Home Meds: 17:30 Albuterol Inhl as needed [Active]; amlodipine 5 mg tab 1 tab once daily [Active]; tw2 atorvastatin 80 mg Oral tab 1 tab once daily [Active]; clopidogrel 75 mg Oral tab 1 tab once daily [Active]; gabapentin 100 mg Oral cap nightly [Active]; hydrochlorothiazide 25 mg Oral tab 1 tab once daily [Active]; levothyroxine 50 mcg tab 1 tab once daily [Active]; metoprolol succinate 50 mg Oral Tb24 0.5 tab twice a day [Active]; naltrexone 1.5 mg Oral nightly [Active]; ranitidine HCl 150 mg Oral tab 1 tab 2 times per day [Active]; ranitidine HCl 75 mg Oral tab 1 tab once daily [Active]; tamsulosin 0.4 mg Oral cp24 1 cap nightly [Active]; triamterene-hydrochlorothiazid 37.5-25 mg Oral cap 1 cap once daily [Active]; - PMHx: 17:25 Atrial Fib; Diabetes - NIDDM; Hyperlipidemia; Hypertension; Hypothyroidism; ss - PSHx: 17:30 Hernia repair; Carotid surgery; tw2 - Immunization history:: Adult Immunizations up to date. - Social history:: Smoking status: Patient/guardian denies using tobacco, Patient uses alcohol, Patient/guardian denies using alcohol, street drugs, The patient lives alone, with family. - Ebola Screening: : No symptoms or risks identified at this time. - Family history:: not pertinent. Screenin:28 Abuse screen: Denies threats or abuse. Nutritional screening: No deficits noted. tw2 Tuberculosis screening: No symptoms or risk factors identified. Fall Risk Secondary diagnosis (15 points) impaired mobility. Assessment: 17:40 General: Appears in no apparent distress. well groomed, Behavior is calm, cooperative, tw2 appropriate for age. Neuro: Level of Consciousness is awake, alert, obeys commands, Oriented to person, place, time, situation. Cardiovascular: Heart tones S1 S2 Capillary refill < 3 seconds Patient's skin is warm and dry. Respiratory: Reports cough that is productive, Airway is patent Respiratory effort is even, unlabored, Respiratory pattern is regular, symmetrical, Breath sounds with wheezes bilaterally. GI: Abdomen is round non-distended, Bowel sounds present X 4 quads. Reports intolerance of fluids, intolerance of food, nausea. : No signs and/or symptoms were reported regarding the genitourinary system. EENT: Reports nasal congestion nasal discharge. Derm: Skin temperature is hot. Musculoskeletal: Range of motion: intact in all extremities. 18:39 Reassessment: Patient appears in no apparent distress at this time. No changes from tw2 previously documented assessment. Patient and/or family updated on plan of care and expected duration. Pain level reassessed. 19:05 Reassessment: Patient appears in no apparent distress at this time. Patient and/or aa1 family updated on plan of care and expected duration. Pain level reassessed. Patient is alert, oriented x 3, equal unlabored respirations, skin warm/dry/pink. Pt resting quietly, daughter at bedside. Awaiting provider reassessment Patient denies pain at this time. 20:00 Reassessment: Patient appears in no apparent distress at this time. Patient and/or aa1 family updated on plan of care and expected duration. Pain level reassessed. Patient is alert, oriented x 3, equal unlabored respirations, skin warm/dry/pink. Awaiting admission to hospital. 20:26 Reassessment: Report given to ROLAND Cordova on 4th floor. aa1 Vital Signs: 17:26 BP 119 / 73; Pulse 95; Resp 20; Temp 98.1; Pulse Ox 92% on R/A; Weight 85.28 kg; Height ss 5 ft. 9 in. (175.26 cm); 17:51 BP 151 / 82; Pulse 89; Resp 19; Temp 101.6(O); Pulse Ox 92% on R/A; tw2 18:40 BP 136 / 72; Pulse 103; Resp 16; Pulse Ox 92% on R/A; tw2 19:04 BP 147 / 51; Pulse 96; Resp 20; Temp 98.5(O); Pulse Ox 94% on 2 lpm NC; Pain 0/10; aa1 20:00 BP 104 / 51; Pulse 92; Resp 18; Temp 98.6; Pulse Ox 94% on 2 lpm NC; Pain 2/10; aa1 17:26 Body Mass Index 27.76 (85.28 kg, 175.26 cm) ss 18:40 pt placed on o2 via nc at 2L will continue to monitor tw2 ED Course: 17:09 Patient arrived in ED. as 17:09 Kevin Patten MD is Private Physician. as 17:26 Triage completed. ss 17:26 Arm band placed on. ss 17:29 Nat Small MD is Attending Physician. ma2 17:29 Bed in low position. Call light in reach. Adult w/ patient. trimmer climber on. Pulse tw2 ox on. NIBP on. 17:37 Aden Mejía RN is Primary Nurse. rv 17:40 Inserted saline lock: 22 gauge in right wrist, using aseptic technique. Blood collected.tw2 17:42 EKG done, by ski technician. reviewed by Nat Small MD. sm3 17:57 Missed attempt(s): 20 gauge in right antecubital area. Bleeding controlled, band aid tw2 applied, catheter tip intact. 18:33 XRAY CXR (1 view) In Process Unspecified. EDMS 18:58 Report given to ROLAND Boateng - Azithromax admin outstanding, medication coming from tw2 pharmacy. 19:16 Kevin Patten MD is Hospitalizing Provider. ma2 20:19 No provider procedures requiring assistance completed. Patient admitted, IV remains in aa1 place. Administered Medications: 18:00 Drug: NS 0.9% 1000 ml Route: IV; Rate: 1 bolus; Site: right wrist; tw2 19:09 Follow up: IV Status: Completed infusion; IV Intake: 1000ml aa1 18:00 Drug: Acetaminophen 1000 mg Route: PO; tw2 19:09 Follow up: Response: No adverse reaction; Temperature is decreased aa1 18:00 Drug: Zofran 4 mg Route: IVP; Site: right wrist; tw2 18:42 Follow up: Response: No adverse reaction; Nausea is decreased tw2 18:10 Drug: Albuterol - atroVENT (3:1) (2.5 mg - 0.5 mg) 3 ml Route: Nebulizer; tw2 18:42 Follow up: Response: No adverse reaction tw2 18:10 Drug: Rocephin 1 grams Route: IV; Rate: calculated rate; Site: right wrist; tw2 18:15 Follow up: Response: No adverse reaction; IV Status: Completed infusion tw2 19:21 Drug: AZITHromycin 500 mg Route: IVPB; Infused Over: 1 hrs; Site: right wrist; aa1 20:22 Follow up: IV Status: Completed infusion; IV Intake: 250ml aa1 Intake: 19:09 IV: 1000ml; Total: 1000ml. aa1 20:22 IV: 250ml; Total: 1250ml. aa1 Outcome: 19:16 Decision to Hospitalize by Provider. ma2 21:15 Admitted to Tele accompanied by tech, via stretcher, room 427, with chart, Report aa1 called to ROLAND Cordova 21:15 Condition: stable 21:15 Instructed on the need for admit, Demonstrated understanding of instructions. 21:15 No charge visit due to call back/ED request. 21:16 Patient left the ED. aa1 Signatures: Dispatcher [employer] EDMS Tasneem Yeung RN RN aa1 Jeannette Chahal Shelby, RN RN ss Wise, Tara, RN RN 2 Nat Small MD MD [facility] Christi Stauffer [facility] Aden Mejía, RN RN rv Corrections: (The following items were deleted from the chart) 18:40 18:40 BP 136 / 72; Pulse 103bpm; Resp 16bpm; Pulse Ox 92% RA; tw2 tw2
--- NOTE | 2018-12-11 19:17 | EDPHYS ---
Physician Documentation [facility] Name: Brian Tavarez Age: 83 yrs Sex: Male : 1935 Arrival Date: 12/11/2018 Time: 17:09 Bed 8 Private MD: Kevin Patten V ED Physician Nat Small HPI: 12/11 18:27 This 83 yrs old Male presents to ER via Ambulatory with complaints of Cough, ma2 Congestion. 18:27 Onset: The symptoms/episode began/occurred gradually, 1 day(s) ago. Severity of ma2 symptoms: At their worst the symptoms were moderate, in the emergency department the symptoms are unchanged. Associated signs and symptoms: Pertinent positives: fever, Pertinent negatives: diarrhea, sore throat, vomiting. The patient has not experienced similar symptoms in the past. Historical: - Allergies: 17:25 Codeine; ss 17:25 Morphine; ss 17:25 Tetanus Vaccines \T\ Toxoid; ss - Home Meds: 17:30 Albuterol Inhl as needed [Active]; amlodipine 5 mg tab 1 tab once daily [Active]; tw2 atorvastatin 80 mg Oral tab 1 tab once daily [Active]; clopidogrel 75 mg Oral tab 1 tab once daily [Active]; gabapentin 100 mg Oral cap nightly [Active]; hydrochlorothiazide 25 mg Oral tab 1 tab once daily [Active]; levothyroxine 50 mcg tab 1 tab once daily [Active]; metoprolol succinate 50 mg Oral Tb24 0.5 tab twice a day [Active]; naltrexone 1.5 mg Oral nightly [Active]; ranitidine HCl 150 mg Oral tab 1 tab 2 times per day [Active]; ranitidine HCl 75 mg Oral tab 1 tab once daily [Active]; tamsulosin 0.4 mg Oral cp24 1 cap nightly [Active]; triamterene-hydrochlorothiazid 37.5-25 mg Oral cap 1 cap once daily [Active]; - PMHx: 17:25 Atrial Fib; Diabetes - NIDDM; Hyperlipidemia; Hypertension; Hypothyroidism; ss - PSHx: 17:30 Hernia repair; Carotid surgery; tw2 - Immunization history:: Adult Immunizations up to date. - Social history:: Smoking status: Patient/guardian denies using tobacco, Patient uses alcohol, Patient/guardian denies using alcohol, street drugs, The patient lives alone, with family. - Ebola Screening: : No symptoms or risks identified at this time. - Family history:: not pertinent. ROS: 18:27 Constitutional: Negative for fever, chills, and weight loss. ma2 18:27 All other systems are negative. Exam: 18:27 Constitutional: This is a well developed, well nourished patient who is awake, alert, ma2 and in no acute distress. ENT: Nares patent. No nasal discharge, no septal abnormalities noted. Tympanic membranes are normal and external auditory canals are clear. Oropharynx with no redness, swelling, or masses, exudates, or evidence of obstruction, uvula midline. Mucous membranes moist. Neck: Trachea midline, no thyromegaly or masses palpated, and no cervical lymphadenopathy. Supple, full range of motion without nuchal rigidity, or vertebral point tenderness. No Meningismus. Cardiovascular: Regular rate and rhythm with a normal S1 and S2. No gallops, murmurs, or rubs. Normal PMI, no JVD. No pulse deficits. Respiratory: Lungs have equal breath sounds bilaterally, diffuse rales to auscultation . No wheezes noted. No increased work of breathing, no retractions or nasal flaring. Abdomen/GI: Soft, non-tender, with normal bowel sounds. No distension or tympany. No guarding or rebound. No evidence of tenderness throughout. Skin: Warm, dry with normal turgor. Normal color with no rashes, no lesions, and no evidence of cellulitis. MS/ Extremity: Pulses equal, no cyanosis. Neurovascular intact. Full, normal range of motion. Vital Signs: 17:26 BP 119 / 73; Pulse 95; Resp 20; Temp 98.1; Pulse Ox 92% on R/A; Weight 85.28 kg; Height ss 5 ft. 9 in. (175.26 cm); 17:51 BP 151 / 82; Pulse 89; Resp 19; Temp 101.6(O); Pulse Ox 92% on R/A; tw2 18:40 BP 136 / 72; Pulse 103; Resp 16; Pulse Ox 92% on R/A; tw2 19:04 BP 147 / 51; Pulse 96; Resp 20; Temp 98.5(O); Pulse Ox 94% on 2 lpm NC; Pain 0/10; aa1 20:00 BP 104 / 51; Pulse 92; Resp 18; Temp 98.6; Pulse Ox 94% on 2 lpm NC; Pain 2/10; aa1 17:26 Body Mass Index 27.76 (85.28 kg, 175.26 cm) ss 18:40 pt placed on o2 via nc at 2L will continue to monitor tw2 MDM: 17:29 Patient medically screened. ma2 18:27 Differential Diagnosis: Obstructed Airway Bronchitis Upper Respiratory Infection ma2 Sinusitis. 18:31 ED course: age adjusted d-dimer is negative . ma2 19:15 Data reviewed: vital signs, nurses notes. Counseling: I had a detailed discussion with ma2 the patient and/or guardian regarding: the historical points, exam findings, and any diagnostic results supporting the discharge/admit diagnosis, the presence of at least one elevated blood pressure reading (>120/80) during this emergency department visit, the need for further work-up and treatment in the hospital. Response to treatment: the patient's symptoms have mildly improved after treatment. ED course: discussed with dr. patten . 12/11 17:29 Order name: Blood Culture Adult (2) ok2 12/11 17:29 Order name: BMP; Complete Time: 18:35 ma2 12/11 17:29 Order name: CBC with Diff; Complete Time: 18:35 ma2 12/11 17:29 Order name: Ckmb; Complete Time: 18:35 ma2 12/11 17:29 Order name: CPK; Complete Time: 18:35 ma2 12/11 17:29 Order name: D-Dimer; Complete Time: 18:35 ma2 12/11 17:29 Order name: Hepatic Function; Complete Time: 18:35 ma2 12/11 17:29 Order name: Lipase; Complete Time: 18:35 ma2 12/11 17:29 Order name: Magnesium; Complete Time: 18:35 ma2 12/11 17:29 Order name: NT PRO-BNP; Complete Time: 18:35 ma2 12/11 17:29 Order name: PT-INR; Complete Time: 18:35 ma2 12/11 17:29 Order name: Ptt, Activated; Complete Time: 18:35 ma2 12/11 17:29 Order name: Troponin (emerg Dept Use Only); Complete Time: 18:35 ma2 12/11 19:20 Order name: Basic Metabolic Panel EDMS 12/11 17:29 Order name: XRAY CXR (1 view) ma2 12/11 17:29 Order name: EKG; Complete Time: 17:30 ma2 12/11 19:20 Order name: Basic Metabolic Panel EDMS 12/11 19:20 Order name: CBC with Automated Diff EDMS 12/11 19:20 Order name: CBC with Automated Diff EDMS 12/11 19:20 Order name: NT PRO-BNP EDMS 12/11 19:20 Order name: NT PRO-BNP EDMS 12/11 19:20 Order name: Troponin I EDMS 12/11 19:20 Order name: Troponin I EDMS 12/11 19:20 Order name: Troponin I EDMS 12/11 17:29 Order name: Cardiac monitoring; Complete Time: 17:31 ma2 12/11 17:29 Order name: EKG - Nurse/Tech; Complete Time: 17:57 ma2 12/11 17:29 Order name: IV Saline Lock; Complete Time: 17:57 ma2 12/11 17:29 Order name: Labs collected and sent; Complete Time: 17:57 ma2 12/11 17:29 Order name: O2 Per Protocol; Complete Time: 17:31 ma2 12/11 17:29 Order name: O2 Sat Monitoring; Complete Time: 17:31 ma2 12/11 19:20 Order name: Consistent Carb (ADA) 1800 Justino EDMS Administered Medications: 18:00 Drug: NS 0.9% 1000 ml Route: IV; Rate: 1 bolus; Site: right wrist; tw2 19:09 Follow up: IV Status: Completed infusion; IV Intake: 1000ml aa1 18:00 Drug: Acetaminophen 1000 mg Route: PO; tw2 19:09 Follow up: Response: No adverse reaction; Temperature is decreased aa1 18:00 Drug: Zofran 4 mg Route: IVP; Site: right wrist; tw2 18:42 Follow up: Response: No adverse reaction; Nausea is decreased tw2 18:10 Drug: Albuterol - atroVENT (3:1) (2.5 mg - 0.5 mg) 3 ml Route: Nebulizer; tw2 18:42 Follow up: Response: No adverse reaction tw2 18:10 Drug: Rocephin 1 grams Route: IV; Rate: calculated rate; Site: right wrist; tw2 18:15 Follow up: Response: No adverse reaction; IV Status: Completed infusion tw2 19:21 Drug: AZITHromycin 500 mg Route: IVPB; Infused Over: 1 hrs; Site: right wrist; aa1 20:22 Follow up: IV Status: Completed infusion; IV Intake: 250ml aa1 Disposition: 12/11/18 19:16 Hospitalization ordered by Kevin Patten for Inpatient Admission. Preliminary diagnosis is Pneumonia due to other specified infectious organisms. - Bed requested for Telemetry/MedSurg (Inpatient). - Status is Inpatient Admission. aa1 - Condition is Stable. - Problem is new. - Symptoms are unchanged. UTI on Admission? No Signatures: Dispatcher [employer] EDMS Rylie Baptiste RN RN Tasneem Yeung RN RN aa1 Billie Womack, RN ROLAND Jacquelyn Mcguire RN RN tw2 Nat Small MD MD ma2 Corrections: (The following items were deleted from the chart) 20:00 19:16 Hospitalization Ordered by Kevin Patten MD for Inpatient Admission. Preliminary diagnosis is Pneumonia due to other specified infectious organisms. Bed requested for Telemetry/MedSurg (Inpatient). Status is Inpatient Admission. Condition is Stable. Problem is new. Symptoms are unchanged. UTI on Admission? No. ma2 21:16 20:00 12/11/2018 19:16 Hospitalization Ordered by Kevin Patten MD for Inpatient aa1 Admission. Preliminary diagnosis is Pneumonia due to other specified infectious organisms. Bed requested for Telemetry/MedSurg (Inpatient). Status is Inpatient Admission. Condition is Stable. Problem is new. Symptoms are unchanged. UTI on Admission? No. mw
[2018-12-11] MEDS ORDERED: CEFTRIAXONE 1 GM/NS 50 ML 1 GM/50 ML BAG IV SCH (21:00)
[2018-12-11 22:10] VITALS: BMI 27.2
[2018-12-12] MEDS: GUAIFENESIN/DM 5 ML UCUP PO SCH ×4 (01:03→17:55)
[2018-12-12] MEDS: IPRATROPIUM BROM 0.5MG/2.5ML NEB PRN ×4 (01:10→19:25)
[2018-12-12] MEDS: ALBUTEROL 2.5 MG/3 ML NEB SOL NEB PRN ×4 (01:10→19:25)
[2018-12-12 04:22] LABS: Absolute Lymphocytes (CBC) 0.6 K/uL (0.7-4.9); Basophils % 0.6 % (0-1.3); Lymphocytes % 11.6 % (15.3-44.8); MPV 8.6 fL (7.6-11.3); RBC Red Blood Cell Count 3.27 M/uL (4.33-5.43)
[2018-12-12 04:24] LABS: Urine Appearance CLEAR; Urine Bilirubin NEGATIVE (NEG); Urine Blood NEGATIVE (NEG); Urine Color YELLOW; Urine Glucose NEGATIVE (NEG); Urine Microscopic Reflex ORDER UMIC; Urine Protein TRACE (NEG); Urine Urobilinogen 0.2 mg/dL (0.2-1.0)
[2018-12-12 04:38] LABS: Potassium 3.6 mmol/L (3.5-5.1)
[2018-12-12 04:42] LABS: Urine Bacteria <20 /HPF (NONE SEEN); Urine Culture Reflex Order NOT NEEDED; Urine RBC <5 /HPF (NONE SEEN)
[2018-12-12 05:03] LABS: Blood Morphology Comment NOT SEEN (NOT SEEN); Platelet Estimate ADEQ
--- NOTE | 2018-12-12 05:31 | EKG ---
Test Date: 2018-12-11 Test Time: 17:38:25 Traveling Electrician: ELENA MEASUREMENT RESULTS: Intervals: Rate: 94 MI: QRSD: 100 QT: 362 QTc: 452 [place]: P: MI: QRS: 59 T: 52 INTERPRETIVE STATEMENTS: Atrial fibrillation Nonspecific ST abnormality Abnormal ECG Compared to ECG 11/17/2018 10:23:12 ST (T wave) deviation now present Sinus rhythm no longer present Ventricular premature complex(es) no longer present Electronically Signed On 12-12-18 05:31:11 CDT by Lionel Little
[2018-12-12] MEDS: ATORVASTATIN 80 MG TAB PO SCH (07:33)
[2018-12-12] MEDS: RANITIDINE 150 MG TABLET PO SCH ×2 (07:34→21:21)
[2018-12-12] MEDS: AMLODIPINE 5 MG TAB PO SCH (07:34)
[2018-12-12] MEDS: LEVOTHYROXINE SOD 0.05 MG TABLET PO SCH (07:34)
[2018-12-12] MEDS: CLOPIDOGREL 75 MG TABLET PO SCH (07:34)
--- NOTE | 2018-12-12 08:42 | P.HP ---
Certification for Inpatient Patient admitted to: Inpatient With expected LOS: >2 Midnights Practitioner: I am a practitioner with admitting privileges, knowledge of patient current condition, hospital course, and medical plan of care. Services: Services provided to patient in accordance with Admission requirements found in Title 42 Section 412.3 of the Code of Federal Regulations Patient History Date of Service: 12/12/18 Reason for admission: FEVER, WEAKNESS. History of Present Illness: HAS COPD, HTN, NEUROPATHY AND HE HAS BEEN SICK OFF AND ON FOR A MONTH. A MONTH AGO HE GOT AUGMENTIN FOR RESPIRATORY INFECTION AND DID WELL UNTIL HE COMPLETED AND THEN STARTED TO FEEL WORSE. HE IS WORSE WITH FEVER AND COUGH FOR LAST TWO DAYS. HE HAS DRY COUGH. CHEST X RAY SHOWS MILD CHF BUT NO PNEUMONIA. HE IS ACHING ALL OVER. Allergies codeine [Codeine] Adverse Reaction (Mild, Verified 01/29/17 16:06) nausea morphine Adverse Reaction (Mild, Verified 12/11/18 22:39) Nausea/Vomiting Home Medications: Atorvastatin Calcium [Lipitor] 40 mg PO DAILY 01/29/17 Clopidogrel Bisulfate [Plavix*] 75 mg PO DAILY 01/29/17 Levothyroxine [Synthroid*] 0.05 mg PO DAILY 01/29/17 Ranitidine [Zantac*] 150 mg PO BID 01/29/17 Tamsulosin [Flomax*] 0.4 mg PO BEDTIME 01/29/17 Amlodipine [Norvasc] 5 mg PO DAILY 90 Days #90 tab 02/10/17 Albuterol Sulfate [Proair Hfa] 1 puff IH QIDP PRN 12/11/18 Gabapentin [Neurontin*] 1 tab PO BEDTIME 12/11/18 Triamterene/Hydrochlorothiazid [Dyazide 37.5-25 Capsule] 1 each PO SEECOM - Past Medical/Surgical History Has patient received pneumonia vaccine in the past: Yes Diabetic: No -: HTN -: hypothyroidism -: hyperlipidemia -: borderline DM -: Afib -: Prostate cancer (12 years ago) -: Carotid surgey (left side) -: Hernia repair -: Radiation 10 years ago - Family History Mother -: Cancer Notes: cervical Father -: Cancer Notes: colon - Social History Smoking Status: Former smoker Alcohol use: No CD- Drugs: No Caffeine use: Yes Place of Residence: Home Review of Systems 10-point ROS is otherwise unremarkable General: Weakness Physical Examination - Vital Signs Temperature: 98.2 F Blood Pressure: 113/72 Pulse: 77 Respirations: 16 Pulse Ox (%): 98 - Physical Exam General: Mild distress, Moderate distress HEENT: Atraumatic, PERRLA, Mucous membr. moist/pink, EOMI, Sclerae nonicteric Neck: Supple, 2+ carotid pulse no bruit, No LAD, Without JVD or thyroid abnormality Respiratory: Clear to auscultation bilaterally, Normal air movement Cardiovascular: Regular rate/rhythm, Normal S1 S2 Gastrointestinal: Normal bowel sounds, No tenderness Musculoskeletal: No tenderness Integumentary: No rashes Neurological: Normal gait, Normal speech, Normal strength at 5/5 x4 extr, Normal tone, Normal affect Lymphatics: No axilla or inguinal lymphadenopathy - Studies Laboratory Data (last 24 hrs) 12/11/18 17:40: PT 13.9 H, INR 1.19, APTT 31.1 12/11/18 17:40: WBC 5.0, Hgb 12.2 L, Hct 35.7 L, Plt Count 183 12/11/18 17:40: Sodium 136, Potassium 3.6, BUN 20 H, Creatinine 1.20, Glucose 114 H, Magnesium 2.0, Total Bilirubin 0.8, AST 19, ALT 16, Alkaline Phosphatase 59, Lipase 45 L Assessment and Plan - Problems (Diagnosis) (1) Respiratory infection Current Visit: Yes Status: Acute Plan: ORDER CT CHEST WITH CONTRAST, ANGIO. MAY HAVE PNEUMONIA. CHANGE TO L[facility] WILL NOT OFFER ANYTHING MORE THAN AUGMENTIN. HE HAS NO SPUTUM. (2) Myalgia Current Visit: Yes Status: Acute - Advance Directives Does patient have a Living Will: Yes Does patient have a Durable POA for Healthcare: Yes
[2018-12-12] MEDS: Levofloxacin500mg IV 500 MG/100 ML BAG IV SCH (09:00)
[2018-12-12] MEDS ORDERED: CEFTRIAXONE/SWI 1gm 1 GM/10 ML SYR IV SCH (09:00)
[2018-12-12] MEDS ORDERED: CEFTRIAXONE 1 GM/NS 50 ML 1 GM/50 ML BAG IV SCH (09:00)
--- NOTE | 2018-12-12 09:24 | RAD REPORT ---
EXAM DESCRIPTION: CT - Chest For Pe Angio - 12/12/2018 9:08 am CLINICAL HISTORY: Chest pain. PAIN COMPARISON: Chest Single View dated 12/11/2018 TECHNIQUE: CT angiogram of the pulmonary arteries was performed with MIP. All CT scans are performed using dose optimization technique as appropriate and may include automated exposure control or mA/KV adjustment according to patient size. FINDINGS: No evidence of pulmonary thromboembolism. No acute aortic finding demonstrated. Emphysematous changes are present throughout the lungs. Ill-defined opacities seen posterior segment right upper lobe and both posterior lower lobes greater on the left. Mild interstitial prominence is also present. No significant pericardial or pleural fluid. No concerning bony finding. IMPRESSION: No evidence of pulmonary thromboembolism. Emphysematous changes are seen with areas of infiltrate as detailed, probably to infection/pneumonia.
--- NOTE | 2018-12-12 16:24 | ECHO ---
HEIGHT: 5 ft 9 in WEIGHT: 184 lb 6.4 oz DATE OF STUDY: 12/12/[address]: Kevin Patten MD 2-DIMENSIONAL: YES M.MODE: YES DOPPLER: YES COLOR FLOW: YES TDS: PORTABLE: DEFINITY: BUBBLE STUDY: DIAGNOSIS: EDEMA, DYSPNEA CARDIAC HISTORY: CATHERIZATION: NO SURGERY: NO PROSTHETIC VALVE: NO PACEMAKER: NO MEASUREMENTS (cm) DIASTOLIC (NORMALS) SYSTOLIC (NORMALS) IVSd 0.9 (0.6-1.2) LA Diam 4.6 (1.9-4.0) LVEF 54% LVIDd 5.7 (3.5-5.7) LVIDs 4.1 (2.0-3.5) %FS 28% LVPWd 0.9 (0.6-1.2) Ao Diam 2.7 (2.0-3.7) 2 DIMENSIONAL ASSESSMENT: RIGHT ATRIUM: NORMAL LEFT ATRIUM: DILATED RIGHT VENTRICLE: NORMAL LEFT VENTRICLE: NORMAL TRICUSPID VALVE: NORMAL MITRAL VALVE: MITRAL ANNULAR CALCIFICATION PULMONIC VALVE: NORMAL AORTIC VALVE: SCLEROSIS PERICARDIAL EFFUSION: NONE AORTIC ROOT: NORMAL LEFT VENTRICULAR WALL MOTION: NORMAL DOPPLER/COLOR FLOW: MILD TRICUSPID REGURGITATION COMMENTS: NORMAL LEFT VENTRICULAR SIZE AND FUNCTION. MITRAL ANNULAR CALCIFICATION. AORTIC SCLEROSIS, NO STENOSIS. MILD TRICUSPID REGURGITATION. NORMAL RIGHT VENTRICULAR SYSTOLIC PRESSURE. TECHNOLOGIST: DAVID FERNANDEZ
[2018-12-12] MEDS: GABAPENTIN 100 MG CAP PO SCH (21:21)
[2018-12-12] MEDS: TAMSULOSIN 0.4 MG SR CAP PO SCH (21:21)
[2018-12-12] MEDS: TRAMADOL HCL 50 MG TAB PO PRN (22:55)
[2018-12-13] MEDS: GUAIFENESIN/DM 5 ML UCUP PO SCH ×4 (00:14→18:03)
[2018-12-13] MEDS: ALBUTEROL 2.5 MG/3 ML NEB SOL NEB PRN ×3 (05:20→13:55)
[2018-12-13] MEDS: IPRATROPIUM BROM 0.5MG/2.5ML NEB PRN ×3 (05:20→13:55)
[2018-12-13] MEDS: Levofloxacin500mg IV 500 MG/100 ML BAG IV SCH (08:54)
[2018-12-13] MEDS: ATORVASTATIN 80 MG TAB PO SCH (08:55)
[2018-12-13] MEDS: AMLODIPINE 5 MG TAB PO SCH (08:56)
[2018-12-13] MEDS: LEVOTHYROXINE SOD 0.05 MG TABLET PO SCH (08:56)
[2018-12-13] MEDS: CLOPIDOGREL 75 MG TABLET PO SCH (08:57)
[2018-12-13] MEDS: RANITIDINE 150 MG TABLET PO SCH ×2 (08:57→20:29)
[2018-12-13] MEDS: TRAMADOL HCL 50 MG TAB PO PRN ×2 (13:07→20:29)
[2018-12-13] MEDS: TAMSULOSIN 0.4 MG SR CAP PO SCH (20:29)
[2018-12-13] MEDS: GABAPENTIN 100 MG CAP PO SCH (20:29)
[2018-12-14] MEDS: IPRATROPIUM BROM 0.5MG/2.5ML NEB PRN ×4 (00:19→21:25)
[2018-12-14] MEDS: ALBUTEROL 2.5 MG/3 ML NEB SOL NEB PRN ×4 (00:19→21:25)
[2018-12-14] MEDS: GUAIFENESIN/DM 5 ML UCUP PO SCH ×4 (00:22→18:03)
--- NOTE | 2018-12-14 02:25 | PN ---
Subjective: Mr. Tavarez is doing a lot better than yesterday. He denies any chest pain or vomitin g. Physical Examination: Vital Signs: Blood pressure 97/59, pulse is 87, temperature 97.3. HEENT: No JVD. No carotid bruits. Chest: Clear. Heart: Regular. Abdomen: No guarding. No rebound. No rigidity. Investigations: Echocardiogram has normal EF. CT chest shows bronchopneumonia, chronic picture. Assessment And Plan: 1.Bronchopneumonia. Continue Levaquin IV. He failed Augmentin and then he was given Rocephin, but I would say Rocephin will have similar coverage to Augmentin. Levaquin will provide more atypical co verage, so it is a drug of choice for him at this point. Clinically is improved. 2.Blood pressure, slightly low today. We will be watching this. Give him IV fluid bolus and we hav e to hold amlodipine which should not be given if it is less than 130 systolic. Clinically stable. RVD/MODL Voice ID: [id number] Report ID: [id number]
[2018-12-14] MEDS: LEVOTHYROXINE SOD 0.05 MG TABLET PO SCH (07:24)
[2018-12-14] MEDS: Levofloxacin500mg IV 500 MG/100 ML BAG IV SCH (07:24)
[2018-12-14] MEDS: RANITIDINE 150 MG TABLET PO SCH ×2 (07:24→22:03)
[2018-12-14] MEDS: ATORVASTATIN 80 MG TAB PO SCH (07:24)
[2018-12-14] MEDS: CLOPIDOGREL 75 MG TABLET PO SCH (07:25)
[2018-12-14] MEDS: TRAMADOL HCL 50 MG TAB PO PRN ×2 (14:12→22:08)
[2018-12-14] MEDS: TAMSULOSIN 0.4 MG SR CAP PO SCH (22:03)
[2018-12-14] MEDS: GABAPENTIN 100 MG CAP PO SCH (22:03)
--- NOTE | 2018-12-14 23:52 | PN ---
Subjective: Mr. Tavarez is doing lot better. Denies chest pain, nausea, vomiting. He is starting to get around better with the breathing and coughing. Physical Examination: Vital Signs: Blood pressure 115/52, pulse 73. Chest: Decreased breath sounds bilaterally basal ral es. Heart: Regular. Abdomen: No guarding. No rebound. No rigidity. Assessment And Plan: Chronic obstructive pulmonary disease exacerbation. Bronchopneumonia. Continu e Levaquin IV. Possible discharge tomorrow. JAMIE/BRISEYDA Voice ID: [id number] Report ID: [id number]
[2018-12-15] MEDS: GUAIFENESIN/DM 5 ML UCUP PO SCH ×3 (00:38→12:24)
[2018-12-15] MEDS: TRAMADOL HCL 50 MG TAB PO PRN ×2 (04:10→12:26)
[2018-12-15] MEDS: ALBUTEROL 2.5 MG/3 ML NEB SOL NEB PRN ×2 (07:35→13:30)
[2018-12-15] MEDS: IPRATROPIUM BROM 0.5MG/2.5ML NEB PRN ×2 (07:35→13:30)
[2018-12-15] MEDS: Levofloxacin500mg IV 500 MG/100 ML BAG IV SCH (08:00)
[2018-12-15] MEDS: CLOPIDOGREL 75 MG TABLET PO SCH (08:32)
[2018-12-15] MEDS: ATORVASTATIN 80 MG TAB PO SCH (08:32)
[2018-12-15] MEDS: RANITIDINE 150 MG TABLET PO SCH (08:33)
[2018-12-15] MEDS: LEVOTHYROXINE SOD 0.05 MG TABLET PO SCH (08:33)
--- NOTE | 2018-12-15 12:45 | P.DS ---
Admission Date: 12/11/18 Discharge Date: 12/15/18 Disposition: ROUTINE DISCHARGE Discharge Condition: SERIOUS Reason for Admission: FEVER, WEAKNESS. - Problems (1) Respiratory infection Current Visit: Yes Status: Acute (2) Myalgia Current Visit: Yes Status: Acute Brief History of Present Illness: HAS COPD, HTN, NEUROPATHY AND HE HAS BEEN SICK OFF AND ON FOR A MONTH. A MONTH AGO HE GOT AUGMENTIN FOR RESPIRATORY INFECTION AND DID WELL UNTIL HE COMPLETED AND THEN STARTED TO FEEL WORSE. HE IS WORSE WITH FEVER AND COUGH FOR LAST TWO DAYS. HE HAS DRY COUGH. CHEST X RAY SHOWS MILD CHF BUT NO PNEUMONIA. HE IS ACHING ALL OVER. Hospital Course: MR BRIDGES COMES IN WITH DYSPNEA, COUGH AND FEVER WITH FAILED AUGMENTIN THERAPY, HE HAS BRONCHOPNEUMONIA. I STARTED HIM ON LEVAQUIN AND HE IMPROVED. HE IS STABLE FOR DC HOME WITH OXYGEN, NEBS MACHINE AND RX. WE FILLED FORMS FOR ALL THAT. HE WILL COME TO OFFICE IN A WEEK OR SO. PROGNOSIS IS GUARDED. Vital Signs/Physical Exam: Temp Pulse Resp BP Pulse Ox 97.4 F 76 18 112/67 97 12/15/18 11:21 12/15/18 11:21 12/15/18 12:26 12/15/18 11:21 12/15/18 12:26 Laboratory Data at Discharge: WBC 5.1 K/uL (4.3-10.9) 12/12/18 03:50 Hgb 11.1 g/dL (13.6-17.9) L 12/12/18 03:50 Hct 32.0 % (39.6-49.0) L 12/12/18 03:50 Plt Count 165 K/uL (152-406) 12/12/18 03:50 PT 13.9 SECONDS (9.5-12.5) H 12/11/18 17:40 INR 1.19 12/11/18 17:40 APTT 31.1 SECONDS (24.3-36.9) 12/11/18 17:40 Sodium 139 mmol/L (136-145) 12/12/18 03:50 Potassium 3.6 mmol/L (3.5-5.1) 12/12/18 03:50 BUN 20 mg/dL (7-18) H 12/12/18 03:50 Creatinine 1.12 mg/dL (0.55-1.3) 12/12/18 03:50 Glucose 100 mg/dL (74-106) 12/12/18 03:50 Magnesium 2.0 mg/dL (1.8-2.4) 12/11/18 17:40 Total Bilirubin 0.8 mg/dL (0.2-1.0) 12/11/18 17:40 AST 19 U/L (15-37) 12/11/18 17:40 ALT 16 U/L (12-78) 12/11/18 17:40 Alkaline Phosphatase 59 U/L (45-117) 12/11/18 17:40 Troponin I 0.02 ng/mL (0.0-0.045) 12/11/18 22:44 Lipase 45 U/L (73-393) L 12/11/18 17:40 Home Medications: Atorvastatin Calcium [Lipitor] 40 mg PO DAILY 01/29/17 Clopidogrel Bisulfate [Plavix*] 75 mg PO DAILY 01/29/17 Levothyroxine [Synthroid*] 0.05 mg PO DAILY 01/29/17 Ranitidine [Zantac*] 150 mg PO BID 01/29/17 Tamsulosin [Flomax*] 0.4 mg PO BEDTIME 01/29/17 Amlodipine [Norvasc] 5 mg PO DAILY 90 Days #90 tab 02/10/17 Albuterol Sulfate [Proair Hfa] 1 puff IH QIDP PRN 12/11/18 Gabapentin [Neurontin*] 1 tab PO BEDTIME 12/11/18 Triamterene/Hydrochlorothiazid [Dyazide 37.5-25 Capsule] 1 each PO SEECOM levoFLOXacin [Levaquin] 500 mg PO DAILY 10 Days #10 tab 12/15/18 New Medications: levoFLOXacin [Levaquin] 500 mg PO DAILY 10 Days #10 tab
[2018-12-15 16:04] VITALS: O2SAT 98
[2018-12-15 16:05] VITALS: BP 119/57; TEMP 97.2
--- NOTE | 2018-12-21 09:37 | DS ---
Date of Discharge: 12/15/2018 Addendum: This is a specific note done for oxygen requirement. Subjective: Mr. Tavarez is doing lot better and on oxygen 2 L nasal cannula, saturating about 90%, without oxygen is down to 87% on room air. He has COPD. He is coming for COPD exacerbation or bron chopneumonia and his COPD seems to be stable for discharge at home with oxygen. This is the note don e for [facility]. Please get this ready as soon as possible, so we can dis charge the patient. JAMIE/MODL Voice ID: [id number] Report ID: [id number]
== END 2018-12-15 16:57 | disposition home or self-care (01) | DRG 194 ==
LOC: ER 17:08 → ERHOLD 19:28 → 4TH 20:29
PROVIDERS: ADMIT Internal Medicine; ATTEND Internal Medicine
DX: J18.0 Bronchopneumonia, unspecified organism (principal); J44.0 Chronic obstructive pulmonary disease with (acute) lower respiratory infection; J44.1 Chronic obstructive pulmonary disease with (acute) exacerbation; I10 Essential (primary) hypertension; G62.9 Polyneuropathy, unspecified; E03.9 Hypothyroidism, unspecified; E78.5 Hyperlipidemia, unspecified; Z85.46 Personal history of malignant neoplasm of prostate
CPT/HCPCS: 36415; 71045; 71275; 80048; 80076; 81003; 81015; 82550; 82553; 82962; 83690; 83735; 83880; 84484; 85025; 85379; 85610; 85730; 87040; 93005; 93306; 94640; 94760; 96361; 96365; 96375; J0456; J0696; J2405; J7030; Q9967

== ENCOUNTER 2018-12-28 20:19 | Inpatient (IN) | payer OTHER ==
[2018-12-28] MEDS ORDERED: NA CHLORIDE 0.9% 500 ML ONE (21:05)
[2018-12-28] MEDS ORDERED: NA CHLORIDE 0.9% 2,000 ML ONE (21:05)
[2018-12-28 21:21] LABS: Absolute Lymphocytes (CBC) 0.3 K/uL (0.7-4.9); Basophils % 0.9 % (0-1.3); Hematocrit 32.8 % (39.6-49.0); Lymphocytes % 3.3 % (15.3-44.8); MPV 8.3 fL (7.6-11.3)
[2018-12-28] MEDS ORDERED: ONDANSETRON 4 MG/2 ML VIAL ONE (21:23)
[2018-12-28 21:27] LABS: Protime INR 1.27
[2018-12-28 21:40] LABS: Albumin 2.7 g/dL (3.4-5.0); Bilirubin Direct 0.2 mg/dL (0-0.2); Bilirubin Total 0.6 mg/dL (0.2-1.0); CKMB Creatine Kinase MB 3.5 ng/mL (0.3-3.6); Potassium 4.4 mmol/L (3.5-5.1); Protein, Total 6.9 g/dL (6.4-8.2); Troponin (Emerg Dept Use Only) 0.07 ng/mL (0.0-0.045)
[2018-12-28] MEDS ORDERED: NA CHLORIDE 0.9% 250 ML ONE (22:09)
[2018-12-28] MEDS ORDERED: AZITHROMYCIN 500 MG INJ IVPB ONE (22:09)
[2018-12-28] MEDS ORDERED: CEFTRIAXONE/SWI 1gm 2 GM/20 ML SYR ONE (22:09)
[2018-12-28 22:10] LABS: Magnesium 1.7 mg/dL (1.8-2.4)
--- NOTE | 2018-12-28 22:19 | ER ---
Nurse's Notes [facility] Name: Brian Tavarez Age: 83 yrs Sex: Male : 1935 Arrival Date: 12/28/2018 Time: 20:24 Bed 24 Private MD: Diagnosis: Pneumonia due to other specified bacteria-bilateral, multifocal;Hypoxemia;Atrial fibrillation and flutter;Dyspnea Presentation: 12/28 20:25 Presenting complaint: EMS states: Pt was recently discharged for PNA here in [place]. Pt wh C/O shortness on breath and even while on 3LPM O2 at home that started today. EMS states Pt O2 at 77% at home even with O2, Pt was placed on 15l NRB with o2 sats between 88-92%. Pt also C/O Nausea. Transition of care: patient was not received from another setting of care. Onset of symptoms was December 28, 2018. Risk Assessment: Do you want to hurt yourself or someone else? Patient reports no desire to harm self or others. Initial Sepsis Screen: Does the patient meet any 2 criteria? RR > 20 per min. HR > 90 bpm. Yes Does the patient have a suspected source of infection? Yes: Productive cough/pneumonia. Care prior to arrival: None. 20:25 Method Of Arrival: EMS: [facility] 20:25 Acuity: JOSE 3 Triage Assessment: 20:35 Respiratory: Onset: The symptoms/episode began/occurred gradually. 20:35 Respiratory: Reports shortness of breath at rest the patient has mild shortness of wh breath. Historical: - Allergies: 21:32 Codeine; 21:32 Morphine; 21:32 Tetanus Vaccines \T\ Toxoid; - Home Meds: 21:32 tamsulosin 0.4 mg Oral cp24 1 cap nightly [Active]; triamterene-hydrochlorothiazid wh 37.5-25 mg Oral cap 1 cap once daily [Active]; gabapentin 100 mg Oral cap nightly [Active]; amlodipine 5 mg tab 1 tab once daily [Active]; levothyroxine 50 mcg tab 1 tab once daily [Active]; atorvastatin 80 mg Oral tab .5 tab once daily [Active]; clopidogrel 75 mg Oral tab 1 tab once daily [Active]; omeprazole 20 mg Oral cpDR 1 cap once daily [Active]; - PMHx: 21:32 Atrial Fib; Diabetes - NIDDM; Hyperlipidemia; Hypertension; Hypothyroidism; wh - Immunization history:: Adult Immunizations up to date. - Social history:: Smoking status: Patient/guardian denies using tobacco. - Ebola Screening: : Patient negative for fever greater than or equal to 101.5 degrees Fahrenheit, and additional compatible Ebola Virus Disease symptoms Patient denies exposure to infectious person. - Family history:: not pertinent. Screenin:28 Abuse screen: Denies threats or abuse. Denies injuries from another. Nutritional wh screening: No deficits noted. Tuberculosis screening: No symptoms or risk factors identified. Fall Risk None identified. Assessment: 20:32 Respiratory: Airway is patent Breath sounds are diminished. wh 20:34 General: Appears in no apparent distress. Behavior is calm, cooperative, appropriate wh for age. Pain: Denies pain. Neuro: Level of Consciousness is awake, alert, obeys commands, Oriented to person, place, time, situation, Appropriate for age. Cardiovascular: Heart tones S1 S2 Rhythm is regular. Respiratory: Airway is patent Respiratory effort is even, unlabored, Respiratory pattern is regular, symmetrical, Breath sounds are diminished bilaterally. GI: Abdomen is flat, non-distended. : No signs and/or symptoms were reported regarding the genitourinary system. EENT: No signs and/or symptoms were reported regarding the EENT system. Derm: Skin is intact, is healthy with good turgor, Skin is pink, warm \T\ dry. normal. Musculoskeletal: Circulation, motion, and sensation intact. 21:30 Reassessment: Patient appears in no apparent distress at this time. No changes from previously documented assessment. Patient and/or family updated on plan of care and expected duration. Pain level reassessed. Patient is alert, oriented x 3, equal unlabored respirations, skin warm/dry/pink. 22:15 Reassessment: Patient appears in no apparent distress at this time. No changes from previously documented assessment. Patient and/or family updated on plan of care and expected duration. Pain level reassessed. Patient is alert, oriented x 3, equal unlabored respirations, skin warm/dry/pink. Patient states feeling better. Patient states symptoms have improved. 23:19 Reassessment: Pt from CT imaging was having SOB, Pt with 80% on 15l NRB, Pt placed on wh 100% BIPAP MD notified with orders made and carried out. 23:30 Reassessment: Patient appears in no apparent distress at this time. Patient and/or family updated on plan of care and expected duration. Pain level reassessed. Patient is alert, oriented x 3, equal unlabored respirations, skin warm/dry/pink. Pt now feeling better with sats on 96% on 100% BIPAP. 12/29 00:27 Reassessment: Patient appears in no apparent distress at this time. No changes from previously documented assessment. Patient and/or family updated on plan of care and expected duration. Pain level reassessed. Patient is alert, oriented x 3, equal unlabored respirations, skin warm/dry/pink. Pt being transferred to ICU with Bandar WATKINS, Brig[facility] and [place] [facility] with ongoing Iv Abx and Bipap. TCT Daughter in [place] notified regarding need for admit in ICU Patient states feeling better. Patient states symptoms have improved. Vital Signs: 12/28 20:30 BP 149 / 94; Pulse 101; Resp 20; Temp 100.6(O); Pulse Ox 86% on 10% Non-rebreather wh mask; Weight 85.28 kg; Height 5 ft. 9 in. (175.26 cm); 21:08 lt1 21:30 BP 160 / 75; Pulse 91; Resp 19; Temp 100.6; Pulse Ox 98% on 15% Non-rebreather mask; 22:30 BP 167 / 100; Pulse 110; Resp 22; Pulse Ox 92% on 15% Non-rebreather mask; 12/29 00:13 BP 133 / 62; Pulse 98; Resp 20; Temp 98.4(A); Pulse Ox 94% on 100% BiPAP; 12/28 20:30 Body Mass Index 27.76 (85.28 kg, 175.26 cm) 12/28 21:08 123 BS \T\21:06 lt1 ED Course: 20:24 Patient arrived in ED. 20:24 Mitch Jin is Primary Nurse. 20:28 Triage completed. 20:35 Arm band placed on right wrist. 20:36 Patient has correct armband on for positive identification. Placed in gown. Bed in low wh position. Call light in reach. Side rails up X 1. community mental health worker on. Pulse ox on. NIBP on. 20:58 Ruben Miramontes MD is Attending Physician. [facility] 21:00 Inserted saline lock: 20 gauge in right antecubital area, using aseptic technique. Blood collected. 21:06 Chest Single View XRAY In Process Unspecified. EDMS 22:16 Kevin Patten MD is Hospitalizing Provider. [facility] 23:30 Inserted saline lock: 22 gauge in left antecubital area, using aseptic technique. 12/29 00:26 No provider procedures requiring assistance completed. Patient admitted, IV remains in place. Administered Medications: Discontinued: NS 0.9% (30 ml/kg) 30 ml/kg IV at bolus once; Sepsis Protocol 12/28 21:00 Drug: Zofran 4 mg Route: IVP; Site: right antecubital; 12/29 00:24 Follow up: Response: No adverse reaction; Nausea is decreased 12/28 21:13 Drug: NS 0.9% (30 ml/kg) 30 ml/kg Route: IV; Rate: bolus; Site: right antecubital; 12/29 00:22 Follow up: Response: No adverse reaction; IV Status: Order to discontinue infusion; IV Intake: 1250ml 12/28 22:15 Drug: Rocephin 2 grams Route: IV; Rate: per protocol; Site: right antecubital; 12/29 00:25 Follow up: Response: No adverse reaction; IV Status: Completed infusion 12/28 22:21 Drug: Zithromax 500 mg Route: IVPB; Infused Over: 1 hrs; Site: right antecubital; 12/29 00:25 Follow up: Response: No adverse reaction; IV Status: Completed infusion 12/28 23:00 Drug: Pepcid 20 mg Route: IVP; Site: right antecubital; 12/29 00:24 Follow up: Response: No adverse reaction 12/28 23:02 Drug: Magnesium Sulfate 2 grams Route: IVPB; Infused Over: 2 hrs; Site: right antecubital; 12/29 00:25 Follow up: Response: No adverse reaction; IV Status: Completed infusion 12/28 23:02 Drug: Tylenol 650 mg Route: PO; 12/29 00:24 Follow up: Response: No adverse reaction; Temperature is decreased 12/28 23:15 Drug: Xopenex 2.5 mg Route: Inhalation; 23:15 Drug: AtroVENT Aerosol 0.5 mg Route: Inhalation; 23:45 Drug: SOLU-Medrol 125 mg Route: IVP; Site: left antecubital; 12/29 00:24 Follow up: Response: No adverse reaction 12/28 23:47 Drug: Lasix 20 mg Route: IVP; Site: left antecubital; 12/29 00:24 Follow up: Response: No adverse reaction 00:04 Drug: vancoMYCIN 1 grams Route: IVPB; Infused Over: 2 hrs; Site: right antecubital; 00:25 Follow up: Response: No adverse reaction; IV Status: Infusion continued upon admission Intake: 00:22 IV: 1250ml; Total: 1250ml. Outcome: 12/28 22:18 Decision to Hospitalize by Provider. [facility] 12/29 00:29 Admitted to ICU accompanied by nurse, accompanied by tech, via stretcher, room 1, with oxygen, on monitor, with chart, Report called to [place] RN Condition: stable Instructed on the need for admit. 00:30 Patient left the ED. Signatures: Dispatcher [employer] EDMS Ruben Miramontes MD MD cha Chretien, Felicia, RN RN Mitch Ryan Fany Abarca lt1 Corrections: (The following items were deleted from the chart) 12/28 20:33 20:32 Respiratory: Airway is patent Breath sounds are clear bilaterally. [facility] 20:37 20:30 BP 149 / 94; Pulse 101bpm; Resp 20bpm; Pulse Ox 86% 02 10% Non-rebreather mask; wh 85.28 kg; Height 5 ft. 9 in.; BMI: 27.7; 20:47 20:46 Initial Sepsis Screen: Does the patient meet any 2 criteria? Does the patient fc have a suspected source of infection? Yes: fc 21:13 20:25 Initial Sepsis Screen: Does the patient meet any 2 criteria? RR > 20 per min. HR > 90 bpm. Does the patient have a suspected source of infection? No. Patient's initial sepsis screen is negative.
--- NOTE | 2018-12-28 22:19 | EDPHYS ---
Physician Documentation [facility] Name: Brian Tavarez Age: 83 yrs Sex: Male : 1935 Arrival Date: 12/28/2018 Time: 20:24 Bed 24 Private MD: ED Physician Ruben Miramontes HPI: 12/28 22:01 This 83 yrs old Male presents to ER via EMS with complaints of Shortness Of lynette Breath. 22:01 The patient has shortness of breath at rest, with light activity. Onset: The lynette symptoms/episode began/occurred 2 day(s) ago. Duration: The symptoms are continuous, and are steadily getting worse. The patient's shortness of breath is aggravated by exertion, light activity, is alleviated by elevating head, rest, sitting up, application of supplemental oxygen. Severity of symptoms: At their worst the symptoms were moderate in the emergency department the symptoms are unchanged. The patient has not experienced similar symptoms in the past. Historical: - Allergies: 21:32 Codeine; wh 21:32 Morphine; wh 21:32 Tetanus Vaccines \T\ Toxoid; wh - Home Meds: 21:32 tamsulosin 0.4 mg Oral cp24 1 cap nightly [Active]; triamterene-hydrochlorothiazid wh 37.5-25 mg Oral cap 1 cap once daily [Active]; gabapentin 100 mg Oral cap nightly [Active]; amlodipine 5 mg tab 1 tab once daily [Active]; levothyroxine 50 mcg tab 1 tab once daily [Active]; atorvastatin 80 mg Oral tab .5 tab once daily [Active]; clopidogrel 75 mg Oral tab 1 tab once daily [Active]; omeprazole 20 mg Oral cpDR 1 cap once daily [Active]; - PMHx: 21:32 Atrial Fib; Diabetes - NIDDM; Hyperlipidemia; Hypertension; Hypothyroidism; wh - Immunization history:: Adult Immunizations up to date. - Social history:: Smoking status: Patient/guardian denies using tobacco. - Ebola Screening: : Patient negative for fever greater than or equal to 101.5 degrees Fahrenheit, and additional compatible Ebola Virus Disease symptoms Patient denies exposure to infectious person. - Family history:: not pertinent. ROS: 22:09 Constitutional: Negative for fever, chills, and weight loss, Eyes: Negative for injury, lynette pain, redness, and discharge, ENT: Negative for injury, pain, and discharge, Neck: Negative for injury, pain, and swelling, Abdomen/GI: Negative for abdominal pain, nausea, vomiting, diarrhea, and constipation, Back: Negative for injury and pain, : Negative for injury, bleeding, discharge, and swelling, MS/Extremity: Negative for injury and deformity, Skin: Negative for injury, rash, and discoloration, Neuro: Negative for headache, weakness, numbness, tingling, and seizure, Psych: Negative for depression, anxiety, suicide ideation, homicidal ideation, and hallucinations, Allergy/Immunology: Negative for hives, rash, and allergies, Endocrine: Negative for neck swelling, polydipsia, polyuria, polyphagia, and marked weight changes, Hematologic/Lymphatic: Negative for swollen nodes, abnormal bleeding, and unusual bruising. 22:09 Cardiovascular: Positive for palpitations. 22:09 Respiratory: Positive for cough, shortness of breath, wheezing, expiratory. 22:09 MS/extremity: Negative for acute changes, injury or acute deformity, pain, swelling, tenderness. Exam: 22:09 Head/Face: Normocephalic, atraumatic. Eyes: Pupils equal round and reactive to light, lynette extra-ocular motions intact. Lids and lashes normal. Conjunctiva and sclera are non-icteric and not injected. Cornea within normal limits. Periorbital areas with no swelling, redness, or edema. ENT: Nares patent. No nasal discharge, no septal abnormalities noted. Tympanic membranes are normal and external auditory canals are clear. Oropharynx with no redness, swelling, or masses, exudates, or evidence of obstruction, uvula midline. Mucous membranes moist. Neck: Trachea midline, no thyromegaly or masses palpated, and no cervical lymphadenopathy. Supple, full range of motion without nuchal rigidity, or vertebral point tenderness. No Meningismus. Chest/axilla: Normal chest wall appearance and motion. Nontender with no deformity. No lesions are appreciated. Abdomen/GI: Soft, non-tender, with normal bowel sounds. No distension or tympany. No guarding or rebound. No evidence of tenderness throughout. Back: No spinal tenderness. No costovertebral tenderness. Full range of motion. Male : Normal genitalia with no discharge or lesions. Skin: Warm, dry with normal turgor. Normal color with no rashes, no lesions, and no evidence of cellulitis. 22:09 Constitutional: The patient appears febrile. 22:09 Cardiovascular: Rate: tachycardic, Rhythm: regular, Pulses: Pulses are 4+ in bilateral radial, brachial, femoral, popliteal, posterior tibial and and dorsalis pedis arteries.. Heart sounds: normal, Edema: is not appreciated, JVD: is not appreciated. Vital Signs: 20:30 BP 149 / 94; Pulse 101; Resp 20; Temp 100.6(O); Pulse Ox 86% on 10% Non-rebreather wh mask; Weight 85.28 kg; Height 5 ft. 9 in. (175.26 cm); 21:08 lt1 21:30 BP 160 / 75; Pulse 91; Resp 19; Temp 100.6; Pulse Ox 98% on 15% Non-rebreather mask; 22:30 BP 167 / 100; Pulse 110; Resp 22; Pulse Ox 92% on 15% Non-rebreather mask; 12/29 00:13 BP 133 / 62; Pulse 98; Resp 20; Temp 98.4(A); Pulse Ox 94% on 100% BiPAP; 12/28 20:30 Body Mass Index 27.76 (85.28 kg, 175.26 cm) 12/28 21:08 123 BS \T\21:06 lt1 MDM: 20:59 [facility] screened. [facility] 22:14 Data reviewed: vital signs, nurses notes, lab test result(s), EKG, radiologic studies, [facility] scan, plain films. 12/28 20:48 Order name: Basic Metabolic Panel; Complete Time: 22:15 12/28 20:48 Order name: Blood Culture Adult (2) 12/28 20:48 Order name: CBC with Diff; Complete Time: 23:07 12/28 20:48 Order name: Ckmb; Complete Time: 22:15 12/28 20:48 Order name: CPK; Complete Time: 22:15 12/28 20:48 Order name: Lactate; Complete Time: 21:55 12/28 20:48 Order name: LFT's; Complete Time: 22:15 12/28 20:48 Order name: Lipase; Complete Time: 22:15 12/28 20:48 Order name: Procalcitonin; Complete Time: 21:55 12/28 20:48 Order name: Protime (+inr); Complete Time: 21:55 12/28 20:48 Order name: Ptt, Activated; Complete Time: 21:55 12/28 20:48 Order name: Troponin (emerg Dept Use Only); Complete Time: 22:15 12/28 20:48 Order name: Urine Microscopic Only 12/28 21:21 Order name: Glucose, Ancillary Testing; Complete Time: 21:55 [facility]MA 12/28 20:48 Order name: Chest Single View XRAY 12/28 21:59 Order name: NT PRO-BNP; Complete Time: 22:15 [facility]MA 12/28 21:59 Order name: Magnesium; Complete Time: 22:15 [facility] 12/28 22:01 Order name: CT Chest For PE Angio [facility] 12/28 22:16 Order name: ABG [facility] 12/28 22:18 Order name: Manual Differential; Complete Time: 23:07 [facility] 12/28 23:08 Order name: BIPAP [facility] 12/29 00:17 Order name: Urine Dipstick--Ancillary (enter results) [facility] 12/28 20:48 Order name: Accucheck; Complete Time: 21:01 12/28 20:48 Order name: Cardiac monitoring; Complete Time: 21:01 12/28 20:48 Order name: EKG - Nurse/Tech; Complete Time: 21:02 12/28 20:48 Order name: IV Saline Lock - Large Bore; Complete Time: 21:02 12/28 20:48 Order name: Labs collected and sent; Complete Time: 21:02 12/28 20:48 Order name: O2 Per Protocol; Complete Time: 21:02 12/28 20:48 Order name: O2 Sat Monitoring; Complete Time: 21:02 12/28 20:48 Order name: Urine Dipstick-Ancillary (obtain specimen); Complete Time: 00:05 12/28 21:55 Order name: EKG; Complete Time: 21:57 [facility] 12/28 21:55 Order name: IV Saline Lock; Complete Time: 22:00 [facility] 12/28 22:24 Order name: CONS Physician Consult [facility] 12/28 23:08 Order name: IV Saline Lock - Large Bore; Complete Time: 23:18 lynette Administered Medications: Discontinued: NS 0.9% (30 ml/kg) 30 ml/kg IV at bolus once; Sepsis Protocol 21:00 Drug: Zofran 4 mg Route: IVP; Site: right antecubital; 12/29 00:24 Follow up: Response: No adverse reaction; Nausea is decreased 12/28 21:13 Drug: NS 0.9% (30 ml/kg) 30 ml/kg Route: IV; Rate: bolus; Site: right antecubital; 12/29 00:22 Follow up: Response: No adverse reaction; IV Status: Order to discontinue infusion; IV Intake: 1250ml 12/28 22:15 Drug: Rocephin 2 grams Route: IV; Rate: per protocol; Site: right antecubital; 12/29 00:25 Follow up: Response: No adverse reaction; IV Status: Completed infusion 12/28 22:21 Drug: Zithromax 500 mg Route: IVPB; Infused Over: 1 hrs; Site: right antecubital; 12/29 00:25 Follow up: Response: No adverse reaction; IV Status: Completed infusion 12/28 23:00 Drug: Pepcid 20 mg Route: IVP; Site: right antecubital; 12/29 00:24 Follow up: Response: No adverse reaction 12/28 23:02 Drug: Magnesium Sulfate 2 grams Route: IVPB; Infused Over: 2 hrs; Site: right antecubital; 12/29 00:25 Follow up: Response: No adverse reaction; IV Status: Completed infusion 12/28 23:02 Drug: Tylenol 650 mg Route: PO; 12/29 00:24 Follow up: Response: No adverse reaction; Temperature is decreased 12/28 23:15 Drug: Xopenex 2.5 mg Route: Inhalation; 23:15 Drug: AtroVENT Aerosol 0.5 mg Route: Inhalation; 23:45 Drug: SOLU-Medrol 125 mg Route: IVP; Site: left antecubital; 12/29 00:24 Follow up: Response: No adverse reaction 12/28 23:47 Drug: Lasix 20 mg Route: IVP; Site: left antecubital; 12/29 00:24 Follow up: Response: No adverse reaction 00:04 Drug: vancoMYCIN 1 grams Route: IVPB; Infused Over: 2 hrs; Site: right antecubital; 00:25 Follow up: Response: No adverse reaction; IV Status: Infusion continued upon admission Disposition: 12/28/18 22:18 Hospitalization ordered by Kevin Patten for Inpatient Admission. Preliminary diagnosis are Pneumonia due to other specified bacteria - bilateral, multifocal, Hypoxemia, Atrial fibrillation and flutter, Dyspnea. - Bed requested for Intensive Care Unit. - Status is Inpatient Admission. - Condition is Serious. - Problem is new. - Symptoms have improved. UTI on Admission? No Signatures: Dispatcher [employer] EDMS Ruben Miramontes MD MD cha Chretien, Felicia RN RN Kimberly Simpson RN RN [facility] Mitch Jin Corrections: (The following items were deleted from the chart) 12/28 21:58 21:56 MAGNESIUM+C.LAB.BRZ ordered. EDMA EDMA 21:58 21:56 PROBNP+C.LAB.BRZ ordered. [facility] EDMA 22:19 22:18 Hospitalization Ordered by Kevin Patten MD for Inpatient Admission. Preliminary [facility] diagnosis is Pneumonia due to other specified bacteria; Hypoxemia; Atrial fibrillation and flutter. Bed requested for Telemetry/MedSurg (Inpatient). Status is Inpatient Admission. Condition is Serious. Problem is new. Symptoms have improved. UTI on Admission? No. lynette 22:38 22:19 12/28/2018 22:18 Hospitalization Ordered by Kevin Patten MD for Inpatient [facility] Admission. Preliminary diagnosis is Pneumonia due to other specified bacteria - bilateral, multifocal; Hypoxemia; Atrial fibrillation and flutter; Dyspnea. Bed requested for Telemetry/MedSurg (Inpatient). Status is Inpatient Admission. Condition is Serious. Problem is new. Symptoms have improved. UTI on Admission? No. lynette 12/29 00:30 12/28 22:38 12/28/2018 22:18 Hospitalization Ordered by Kevin Patten MD for Inpatient Admission. Preliminary diagnosis is Pneumonia due to other specified bacteria - bilateral, multifocal; Hypoxemia; Atrial fibrillation and flutter; Dyspnea. Bed requested for Intensive Care Unit. Status is Inpatient Admission. Condition is Serious. Problem is new. Symptoms have improved. UTI on Admission? No. tl1
[2018-12-28 22:23] LABS: Blood Morphology Comment NOTED (NOT SEEN); Ovalocytes 1+; Platelet Estimate ADEQ
[2018-12-28] MEDS ORDERED: FAMOTIDINE 20 MG/2 ML VIAL IV ONE (22:51)
[2018-12-28] MEDS ORDERED: ACETAMINOPHEN 325 MG TABLET ONE (22:51)
[2018-12-28] MEDS ORDERED: Magnesium Sulfate 2gm IVPB 2 G/50 ML BAG IV ONE (22:51)
[2018-12-28] MEDS ORDERED: IPRATROPIUM BROM 0.5MG/2.5ML ONE (23:10)
[2018-12-28] MEDS ORDERED: LEVALBUTEROL 1.25 MG/3 ML NEB ONE (23:10)
[2018-12-28 23:16] LABS: Arterial Blood Carboxyhemoglob 1.2 % (0-1.5); Blood Gas Oxyhemoglobin 93.6 % (94-97); Blood O2 Saturation 95.3 % (92-98.5)
[2018-12-28] MEDS ORDERED: FUROSEMIDE 20 MG/ 2ML VIAL ONE (23:44)
[2018-12-28] MEDS ORDERED: METHYLPREDNISOLONE 125 MG INJ ONE (23:44)
[2018-12-29] MEDS ORDERED: NA CHLORIDE 0.9% 250 ML ONE (00:04)
[2018-12-29] MEDS ORDERED: VANCOMYCIN 1 GM/VIAL ONE (00:04)
[2018-12-29 00:55] LABS: Urine Blood TRACE (NEG); Urine Glucose NEGATIVE (NEG); Urine Protein TRACE (NEG); Urine Specific Gravity 1.015 (1.005-1.030); Urine pH 5.5 (5.0-7.0)
[2018-12-29 02:20] LABS: Urine Bacteria <20 /HPF (NONE SEEN); Urine Mucus 3+ /HPF (NONE SEEN)
[2018-12-29 02:21] LABS: Urine Culture Reflex Order NOT NEEDED; Urine RBC NONE SEEN /HPF (NONE SEEN)
[2018-12-29] MEDS ORDERED: ACETAMINOPHEN 500 MG TAB PO PRN (03:34)
[2018-12-29] MEDS ORDERED: VANCOMYCIN/NS 1 gm 1 GM/250 ML BAG IVPB SCH (03:34)
[2018-12-29] MEDS: METHYLPREDNISOLONE 40 MG INJ IV SCH ×3 (03:34→16:00)
[2018-12-29] MEDS: ALBUTEROL 2.5 MG/3 ML NEB SOL NEB PRN ×4 (04:05→18:15)
[2018-12-29] MEDS: IPRATROPIUM BROM 0.5MG/2.5ML NEB PRN ×4 (04:05→18:15)
[2018-12-29 05:17] LABS: Absolute Lymphocytes (CBC) 0.2 K/uL (0.7-4.9); Basophils % 0.3 % (0-1.3); Hematocrit 32.7 % (39.6-49.0); Lymphocytes % 2.8 % (15.3-44.8); MPV 8.2 fL (7.6-11.3); RBC Red Blood Cell Count 3.33 M/uL (4.33-5.43)
[2018-12-29 05:31] LABS: BUN Blood Urea Nitrogen 14 mg/dL (7-18); Bicarbonate 25 mmol/L (21-32); Glucose Level 165 mg/dL (74-106); NT PRO-BNP 5105 pg/mL (<450); Potassium 3.8 mmol/L (3.5-5.1); Sodium Level 139 mmol/L (136-145)
--- NOTE | 2018-12-29 07:43 | EKG ---
Test Date: 2018-12-28 Test Time: 20:28:58 Senior Ios Developer: MIRIAMT MEASUREMENT RESULTS: Intervals: Rate: 104 SC: QRSD: 86 QT: 344 QTc: 452 [place]: P: SC: QRS: 51 T: 53 INTERPRETIVE STATEMENTS: Atrial fibrillation with rapid ventricular response Nonspecific ST abnormality Abnormal ECG Compared to ECG 12/11/2018 17:38:25 No significant changes Electronically Signed On 12-29-18 07:42:12 CDT by Lionel Little
--- NOTE | 2018-12-29 08:03 | RAD REPORT ---
EXAM DESCRIPTION: Tamiko Single View12/28/2018 9:06 pm CLINICAL HISTORY: Chest pain COMPARISON: December 11, 2018 FINDINGS: Moderate to marked alveolar opacities right lung. Mild to moderate alveolar opacities lef t lung The heart is mildly enlarged IMPRESSION: Bilateral pulmonary opacities right greater than left probably pneumonia
--- NOTE | 2018-12-29 08:21 | RAD REPORT ---
EXAM DESCRIPTION: Tamiko Single View12/29/2018 6:30 am CLINICAL HISTORY: Chest pain COMPARISON: December 28, 2018 FINDINGS: Minimal improvement in the right and no change in the left pulmonary opacities. The heart remains enlarged IMPRESSION: Minimal improvement in the moderate to marked right and no change in the [id number] e left pulmonary opacities probably pneumonia
[2018-12-29] MEDS: ONDANSETRON 4 MG/2 ML VIAL IV PRN (08:31)
[2018-12-29] MEDS: FAMOTIDINE 20 MG/2 ML VIAL IV SCH ×2 (08:37→20:56)
[2018-12-29] MEDS: Meropenem 1,000 MG in NA CHLORIDE 0.9% 100 ML IV SCH ×2 (08:39→20:55)
[2018-12-29] MEDS ORDERED: CEFTRIAXONE 1 GM/NS 50 ML 1 GM/50 ML BAG IV SCH (09:00)
[2018-12-29] MEDS ORDERED: AZITHROMYCIN IV 500 MG in NA CHLORIDE 0.9% 250 ML IVPB SCH (09:00)
[2018-12-29] MEDS ORDERED: Meropenem 1000 MG/VIAL IV SCH (09:00)
--- NOTE | 2018-12-29 10:37 | RAD REPORT ---
EXAM DESCRIPTION: CT - Chest For Pe Angio - 12/29/2018 5:21 am CLINICAL HISTORY: 83 years Male COUGH TECHNIQUE: Contiguous axial images obtained through the chest were obtained from the thoracic inlet to the level of the upper abdomen during the pulmonary arterial phase of intravenous contrast adminis tration. Bilateral oblique coronal reformatted images provided. This CT exam was performed according to our departmental dose-optimization program, which includes on e or more of the following dose reduction techniques: automated exposure control, adjustment of the m A and/or kV according to patient size, and/or use of iterative reconstruction technique. COMPARISON: Comparison is made with the prior exam dated 12/12/2018. FINDINGS: There is no pulmonary embolus. Atherosclerosis without thoracic aortic aneurysm or dissection. Mild cardiomegaly without pericardial effusion. There are worsening confluent airspace opacities throughout the majority of the right lung and the de pendent aspects of the left lung. These infiltrates are densest in the dependent right upper, right m iddle, and left lower lobes with diffuse air bronchograms. Underlying emphysema again noted. No pneum othorax. Trace bilateral pleural effusions, right greater than left. Likely reactive mediastinal lymph nodes. There are no visualized acute osseous or upper abdominal abnormalities. IMPRESSION: No pulmonary embolus. Confluent airspace infiltrates throughout the majority of the right lung in the dependent aspect of t he left lung have progressed since the prior exam, most concerning for infection. Trace bilateral ple ural effusions, right greater than left. Likely reactive mediastinal lymph nodes. Electronically signed by: Erinn Bradley MD 12/28/2018 11:22 PM CDT Due to temporary technical issues with the PACS/Fluency reporting system, reports are being signed by the in house radiologist as a courtesy to ensure prompt reporting. The interpreting radiologist is f ully responsible for the content of the report.
--- NOTE | 2018-12-29 11:02 | EKG ---
Test Date: 2018-12-29 Test Time: 07:27:24 Power Nut Runner Operator: ADONIS MEASUREMENT RESULTS: Intervals: Rate: 88 [place]: 230 QRSD: 88 QT: 414 QTc: 500 [place]: P: 67 [place]: 230 QRS: 65 T: 62 INTERPRETIVE STATEMENTS: Sinus rhythm with 1st degree AV block with premature atrial complexes with aberrant conduction RSR' or QR pattern in V1 suggests right ventricular conduction delay Prolonged QT Abnormal ECG Compared to ECG 12/28/2018 20:28:58 Atrial premature complex(es) now present First degree AV block now present Aberrant conduction of supraventricular beat(s) now present Atrial fibrillation no longer present Electronically Signed On 12-29-18 11:01:37 CDT by Lionel Little
[2018-12-29] MEDS ORDERED: PROMETHAZINE-DM 5 ML OSYR PO PRN (13:15)
[2018-12-29] MEDS ORDERED: FUROSEMIDE 20 MG/ 2ML VIAL IV ONE (13:22)
--- NOTE | 2018-12-29 13:26 | P.CNS ---
Date of Consult: 12/29/18 Reason for Consult: Respiratory distress pneumonia Chief Complaint: Respiratory failure History of Present Illness: Patient is 83 years of age admitted with acute onset of shortness of breath he has been treated for pneumonia which like is chest x-rays done progressively worse in the last 2 weeks he was treated with outpatient Augmentin failed patient denies any fever chills planing of cough no chest pain chest x-ray shows progression of his infiltrate particularly on the right side Allergies codeine [Codeine] Adverse Reaction (Mild, Verified 01/29/17 16:06) nausea morphine Adverse Reaction (Mild, Verified 12/11/18 22:39) Nausea/Vomiting Home Medications: Atorvastatin Calcium [Lipitor] 40 mg PO BEDTIME 01/29/17 Clopidogrel Bisulfate [Plavix*] 75 mg PO DAILY 01/29/17 Levothyroxine [Synthroid*] 0.05 mg PO DAILY 01/29/17 Ranitidine [Zantac*] 150 mg PO BID 01/29/17 Tamsulosin [Flomax*] 0.4 mg PO BEDTIME 01/29/17 Amlodipine [Norvasc] 5 mg PO DAILY 90 Days #90 tab 02/10/17 Albuterol Sulfate [Proair Hfa] 1 puff IH QIDP PRN 12/11/18 Gabapentin [Neurontin*] 1 tab PO BEDTIME 12/11/18 Triamterene/Hydrochlorothiazid [Dyazide 37.5-25 Capsule] 1 each PO SEECOM levoFLOXacin [Levaquin] 500 mg PO DAILY 10 Days #10 tab 12/15/18 Albuterol Sulfate [Proair Hfa] 2 puff IH QIDP PRN 12/29/18 Brimonidine Tartrate 1 drop LEFT EYE BID 12/29/18 D-Methorphan Hb/Prometh HCl [Promethazine-Dm Syrup] 5 ml PO QIDP PRN 12/29/18 Fluticasone Propionate [Flonase Allergy Relief] 1 spray IH DAILY 12/29/18 Omeprazole 20 mg PO DAILY 12/29/18 Ondansetron HCl 4 mg PO Q4HP PRN 12/29/18 Timolol Maleate/Pf [Timoptic 0.5% Ocudose Drop] 1 drop LEFT EYE BID 12/29/18 - Past Medical/Surgical History Diabetic: No -: HTN -: hypothyroidism -: hyperlipidemia -: borderline DM -: Afib -: Prostate cancer (12 years ago) -: Carotid surgey (left side) -: Hernia repair -: Radiation 10 years ago - Family History Mother Medical History: Cancer Notes: cervical Father Medical History: Cancer Notes: colon - Social History Smoking Status: Current some day smoker Alcohol use: No CD- Drugs: No Caffeine use: Yes Review of Systems 10-point ROS is otherwise unremarkable General: Weakness Respiratory: Cough, Shortness of Breath Physical Examination Temp Pulse Resp BP Pulse Ox 97 F 89 19 158/74 H 96 12/29/18 08:00 12/29/18 13:00 12/29/18 13:00 12/29/18 13:00 12/29/18 13:00 General: Alert, Oriented x3, Moderate distress Neck: Supple Respiratory: Crackles/rales (Crackles on the right side) Cardiovascular: No edema, Regular rate/rhythm Gastrointestinal: Normal bowel sounds, Soft and benign Musculoskeletal: No clubbing, No contractures Integumentary: No breakdown Laboratory Data (last 24 hrs) 12/28/18 21:55: Magnesium Cancelled 12/28/18 21:00: PT 14.9 H, INR 1.27, APTT 29.8 12/28/18 21:00: WBC 8.6, Hgb 11.1 L, Hct 32.8 L, Plt Count 267 12/28/18 21:00: Sodium 139, Potassium 4.4, BUN 15, Creatinine 0.86, Glucose 120 H, Magnesium 1.7 L, Total Bilirubin 0.6, AST 24, ALT 14, Alkaline Phosphatase 78 , Lipase 28 L - Problems (1) Respiratory failure Current Visit: Yes Status: Acute Plan: Patient is 83 years of age admitted with progressive infiltrate on the right side no active evidence of sepsis vital signs are stable over he is requiring very high concentrations of oxygen and he is on a BiPAP normal white count kidney function normal BNP elevated at this time I agree with steroids antibiotics I have also added Lasix abnormal echo December 12 may need to be intubated over he looks alert responsive cooperative complaining of a cough Qualifiers: Chronicity: acute on chronic
--- NOTE | 2018-12-29 13:52 | P.HP ---
Certification for Inpatient Patient admitted to: Inpatient With expected LOS: >2 Midnights Practitioner: I am a practitioner with admitting privileges, knowledge of patient current condition, hospital course, and medical plan of care. Services: Services provided to patient in accordance with Admission requirements found in Title 42 Section 412.3 of the Code of Federal Regulations Patient History Date of Service: 12/29/18 Reason for admission: Respiratory failure History of Present Illness: MR. BRIDGES WAS IN HOSPITAL FOR PNEUMONIA THAT CLINICALLY IMPROVED LATER SENT HOME ON LEVAQUIN. HE DID WELL. I SAW HIM LAST WEEK FOR FOLLOW UP VISIT. HE STILL HAD OXYGEN ON BUT OTHERWISE ASYMPTOMATIC. HE COMES LAST NIGHT AGAIN AND SAYS HE HAS WORSENED FOR LAST 24 HOURS. HE HAS LARGE R SIDE PNEUMONIA AND UNCHANGED L SIDE PNEUMONIA. HE IS IN ICU WITH BIPAP ON. ER DOCTOR STARTED HIM ON ROCEPHIN, ZITHROMAX AND VANCOMYCIN. HE FAILED LEVAQUIN SO I NEED TO UPGRADE HIS ABX COVERAGE TO ANEROBIC AND MRSA. I STOPPED ROCEPHIN AND ZITHROMAX AND STARTED MERREM. CONTINUE VANCOMYCIN. Allergies codeine [Codeine] Adverse Reaction (Mild, Verified 01/29/17 16:06) nausea morphine Adverse Reaction (Mild, Verified 12/11/18 22:39) Nausea/Vomiting Home Medications: Atorvastatin Calcium [Lipitor] 40 mg PO BEDTIME 01/29/17 Clopidogrel Bisulfate [Plavix*] 75 mg PO DAILY 01/29/17 Levothyroxine [Synthroid*] 0.05 mg PO DAILY 01/29/17 Ranitidine [Zantac*] 150 mg PO BID 01/29/17 Tamsulosin [Flomax*] 0.4 mg PO BEDTIME 01/29/17 Amlodipine [Norvasc] 5 mg PO DAILY 90 Days #90 tab 02/10/17 Albuterol Sulfate [Proair Hfa] 1 puff IH QIDP PRN 12/11/18 Gabapentin [Neurontin*] 1 tab PO BEDTIME 12/11/18 Triamterene/Hydrochlorothiazid [Dyazide 37.5-25 Capsule] 1 each PO SEECOM levoFLOXacin [Levaquin] 500 mg PO DAILY 10 Days #10 tab 12/15/18 Albuterol Sulfate [Proair Hfa] 2 puff IH QIDP PRN 12/29/18 Brimonidine Tartrate 1 drop LEFT EYE BID 12/29/18 D-Methorphan Hb/Prometh HCl [Promethazine-Dm Syrup] 5 ml PO QIDP PRN 12/29/18 Fluticasone Propionate [Flonase Allergy Relief] 1 spray IH DAILY 12/29/18 Omeprazole 20 mg PO DAILY 12/29/18 Ondansetron HCl 4 mg PO Q4HP PRN 12/29/18 Timolol Maleate/Pf [Timoptic 0.5% Ocudose Drop] 1 drop LEFT EYE BID 12/29/18 - Past Medical/Surgical History Diabetic: No -: HTN -: hypothyroidism -: hyperlipidemia -: borderline DM -: Afib -: Prostate cancer (12 years ago) -: Carotid surgey (left side) -: Hernia repair -: Radiation 10 years ago - Family History Mother -: Cancer Notes: cervical Father -: Cancer Notes: colon - Social History Smoking Status: Unknown if ever smoked Alcohol use: No CD- Drugs: No Caffeine use: Yes Review of Systems 10-point ROS is otherwise unremarkable General: Weakness, Malaise Respiratory: Shortness of Breath Physical Examination - Vital Signs Temperature: 97 F Blood Pressure: 158/74 Pulse: 89 Respirations: 19 Pulse Ox (%): 96 - Physical Exam General: Alert, Moderate distress HEENT: Atraumatic, PERRLA, Mucous membr. moist/pink, EOMI, Sclerae nonicteric Neck: Supple, 2+ carotid pulse no bruit, No LAD, Without JVD or thyroid abnormality Respiratory: Diminished Cardiovascular: Regular rate/rhythm, Normal S1 S2 Gastrointestinal: Normal bowel sounds, No tenderness Musculoskeletal: No tenderness Integumentary: No rashes Neurological: Normal gait, Normal speech, Normal strength at 5/5 x4 extr, Normal tone, Normal affect Lymphatics: No axilla or inguinal lymphadenopathy - Studies Laboratory Data (last 24 hrs) 12/28/18 21:55: Magnesium Cancelled 12/28/18 21:00: PT 14.9 H, INR 1.27, APTT 29.8 12/28/18 21:00: WBC 8.6, Hgb 11.1 L, Hct 32.8 L, Plt Count 267 12/28/18 21:00: Sodium 139, Potassium 4.4, BUN 15, Creatinine 0.86, Glucose 120 H, Magnesium 1.7 L, Total Bilirubin 0.6, AST 24, ALT 14, Alkaline Phosphatase 78 , Lipase 28 L Assessment and Plan - Problems (Diagnosis) (1) Bilateral pneumonia Current Visit: Yes Status: Acute Plan: FAILED OUTPATIENT THERAPY WITH APPROPRIATE ANTIBIOTIC THAT PROVIDES GREAT COVERAGE FOR COPD PATIENTS. HE WILL NOW BE ON MERREM AND VANCOMYCIN. SPTUUM CULTURE. PROGNOSIS GUARDED. Qualifiers: Pneumonia type: due to unspecified organism (2) COPD (chronic obstructive pulmonary disease) Current Visit: Yes Status: Chronic Plan: NEBS AND SHORT TERM STEROIDS. Qualifiers: COPD type: COPD with acute exacerbation Qualified Code(s): J44.1 - Chronic obstructive pulmonary disease with (acute) exacerbation - Advance Directives Does patient have a Living Will: No Does patient have a Durable POA for Healthcare: No
[2018-12-29] MEDS ORDERED: ONDANSETRON HCL 4 MG TABLET PO PRN ×2 (14:04→16:06)
[2018-12-29] MEDS: ENOXAPARIN 40 MG/0.4 ML SQ SCH (16:00)
[2018-12-29] MEDS: VANCOMYCIN 1.5 GM in NA CHLORIDE 0.9% 500 ML IVPB SCH (16:00)
[2018-12-29] MEDS: ACETAMINOPHEN 500 MG TAB PO PRN (17:42)
[2018-12-29] MEDS: ATORVASTATIN 80 MG TAB PO SCH (20:55)
[2018-12-29] MEDS: BRIMONIDINE TARTRATE 0.2% OPTH SCH (20:56)
[2018-12-29] MEDS: GABAPENTIN 100 MG CAP PO SCH (20:56)
[2018-12-29] MEDS: TAMSULOSIN 0.4 MG SR CAP PO SCH (20:56)
[2018-12-29] MEDS: TIMOPTIC 0.5% OPTH SCH (20:56)
[2018-12-29] MEDS ORDERED: BRIMONIDINE TARTRATE 0.15% 5 ML OPTH SCH (21:00)
[2018-12-30] MEDS: METHYLPREDNISOLONE 40 MG INJ IV SCH ×3 (00:03→17:14)
[2018-12-30] MEDS: IPRATROPIUM BROM 0.5MG/2.5ML NEB PRN ×4 (00:54→20:20)
[2018-12-30] MEDS: ALBUTEROL 2.5 MG/3 ML NEB SOL NEB PRN ×4 (00:54→20:20)
[2018-12-30] MEDS: ONDANSETRON 4 MG/2 ML VIAL IV PRN ×4 (02:01→18:30)
[2018-12-30] MEDS: PROMETHAZINE-DM SYRUP PO PRN ×2 (05:41→11:21)
[2018-12-30] MEDS: LEVOTHYROXINE SOD 0.05 MG TABLET PO SCH (05:42)
[2018-12-30] MEDS: FAMOTIDINE 20 MG/2 ML VIAL IV SCH ×2 (08:11→20:31)
[2018-12-30] MEDS: CLOPIDOGREL 75 MG TABLET PO SCH (08:12)
[2018-12-30] MEDS: AMLODIPINE 5 MG TAB PO SCH (08:12)
[2018-12-30] MEDS: BRIMONIDINE TARTRATE 0.2% OPTH SCH ×2 (08:13→20:32)
[2018-12-30] MEDS: TIMOPTIC 0.5% OPTH SCH ×2 (08:13→20:31)
[2018-12-30] MEDS: Meropenem 1,000 MG in NA CHLORIDE 0.9% 100 ML IV SCH ×2 (08:15→20:30)
--- NOTE | 2018-12-30 09:26 | P.PN ---
Subjective Date of Service: 12/30/18 Chief Complaint: Respiratory failure Patient's condition is stable is still requiring high concentration of oxygen unable to take off the BiPAP chest x-ray ABGs pending Review of Systems General: Weakness Respiratory: Cough, Shortness of Breath Physical Examination - Vital Signs Temperature: 97.0 F Blood Pressure: 147/64 Pulse: 104 Respirations: 18 Pulse Ox (%): 92 - Physical Exam General: Alert, In no apparent distress, Oriented x3 Respiratory: Clear to auscultation bilaterally Cardiovascular: No edema, Normal S1 S2 Assessment & Plan - Problems (Diagnosis) (1) Respiratory failure Current Visit: Yes Status: Acute Plan: Patient admitted with respiratory failure continue with steroids chest x-ray ABGs pending labs reviewed continue with diuretics no active evidence of sepsis vital signs stable may need to be intubated possible bronch Qualifiers: Chronicity: acute on chronic
--- NOTE | 2018-12-30 09:57 | RAD REPORT ---
EXAM DESCRIPTION: Tamiko Single View12/30/2018 9:25 am CLINICAL HISTORY: Shortness of breath COMPARISON: December 29 FINDINGS: Improvement in the bilateral pulmonary opacities. The heart is mildly enlarged IMPRESSION: Improvement in the bilateral pneumonia
[2018-12-30] MEDS ORDERED: LIDOCAINE JELLY 2%- 5 ML TUBE MM PRN (10:02)
[2018-12-30 10:26] LABS: Absolute Lymphocytes (CBC) 0.3 K/uL (0.7-4.9); Hematocrit 32.3 % (39.6-49.0); Lymphocytes % 3.1 % (15.3-44.8); MPV 8.1 fL (7.6-11.3); RBC Red Blood Cell Count 3.31 M/uL (4.33-5.43)
[2018-12-30 10:37] LABS: Albumin 2.5 g/dL (3.4-5.0); Bilirubin Total 0.5 mg/dL (0.2-1.0); Magnesium 2.5 mg/dL (1.8-2.4); Protein, Total 6.4 g/dL (6.4-8.2)
[2018-12-30] MEDS: FUROSEMIDE 20 MG/ 2ML VIAL IV SCH ×2 (10:53→17:14)
[2018-12-30 11:20] LABS: Arterial Blood Carboxyhemoglob 1.4 % (0-1.5); Blood Gas Oxyhemoglobin 91.4 % (94-97)
[2018-12-30] MEDS: VANCOMYCIN 1.5 GM in NA CHLORIDE 0.9% 500 ML IVPB SCH (11:47)
[2018-12-30] MEDS ORDERED: GLUCERNA 1.2 CAL 1,000 ML BOT FT SCH (14:00)
--- NOTE | 2018-12-30 14:02 | RAD REPORT ---
EXAM DESCRIPTION: RAD - Abdomen 1 View (KUB) - 12/30/2018 1:20 pm CLINICAL HISTORY: Device placement Dobhoff tube placement FINDINGS: The tip of a Dobhoff tube lies within the gastric body. Appears to be a double lumen cath eter.
[2018-12-30] MEDS: ENOXAPARIN 40 MG/0.4 ML SQ SCH (17:15)
[2018-12-30] MEDS: ATORVASTATIN 80 MG TAB PO SCH (20:30)
[2018-12-30] MEDS: TAMSULOSIN 0.4 MG SR CAP PO SCH (20:31)
[2018-12-30] MEDS: GABAPENTIN 100 MG CAP PO SCH (20:31)
[2018-12-31] MEDS: METHYLPREDNISOLONE 40 MG INJ IV SCH ×3 (00:45→16:05)
[2018-12-31] MEDS: IPRATROPIUM BROM 0.5MG/2.5ML NEB PRN ×4 (02:10→20:15)
[2018-12-31] MEDS: ALBUTEROL 2.5 MG/3 ML NEB SOL NEB PRN ×4 (02:10→20:15)
[2018-12-31 04:30] LABS: Absolute Lymphocytes (CBC) 0.4 K/uL (0.7-4.9); Basophils % 0.2 % (0-1.3); Hematocrit 32.2 % (39.6-49.0); MPV 9.3 fL (7.6-11.3); RBC Red Blood Cell Count 3.28 M/uL (4.33-5.43)
[2018-12-31] MEDS: PROMETHAZINE-DM SYRUP PO PRN ×3 (04:53→14:56)
[2018-12-31] MEDS: VANCOMYCIN 1.5 GM in NA CHLORIDE 0.9% 500 ML IVPB SCH (04:56)
[2018-12-31 05:04] LABS: Albumin 2.3 g/dL (3.4-5.0); Bilirubin Total 0.4 mg/dL (0.2-1.0); Magnesium 2.5 mg/dL (1.8-2.4); Potassium 4.2 mmol/L (3.5-5.1); Protein, Total 5.8 g/dL (6.4-8.2)
[2018-12-31 05:14] LABS: Blood Morphology Comment NOT SEEN (NOT SEEN); Platelet Estimate ADEQ; Urine White Blood Cell Casts OK
[2018-12-31] MEDS: LEVOTHYROXINE SOD 0.05 MG TABLET PO SCH (05:53)
[2018-12-31] MEDS: BRIMONIDINE TARTRATE 0.2% OPTH SCH ×2 (09:52→20:09)
[2018-12-31] MEDS: TIMOPTIC 0.5% OPTH SCH ×2 (09:52→20:09)
[2018-12-31] MEDS: FUROSEMIDE 20 MG/ 2ML VIAL IV SCH ×2 (09:53→16:05)
[2018-12-31] MEDS: Meropenem 1,000 MG in NA CHLORIDE 0.9% 100 ML IV SCH (09:53)
[2018-12-31] MEDS: FAMOTIDINE 20 MG/2 ML VIAL IV SCH (09:54)
[2018-12-31] MEDS: CLOPIDOGREL 75 MG TABLET PO SCH (09:54)
[2018-12-31] MEDS: AMLODIPINE 5 MG TAB PO SCH (09:54)
[2018-12-31 10:26] LABS: Arterial Blood Carboxyhemoglob 1.4 % (0-1.5); Blood Gas Oxyhemoglobin 86.7 % (94-97); Blood O2 Saturation 88.2 % (92-98.5)
[2018-12-31] MEDS ORDERED: MAGNESIUM HYDROXIDE 8% 30 ML PO PRN (10:29)
[2018-12-31] MEDS ORDERED: Levofloxacin500mg IV 100 ML IV SCH (11:00)
--- NOTE | 2018-12-31 11:30 | P.PN ---
Subjective Date of Service: 12/31/18 Chief Complaint: Respiratory failure Patient's condition is stable he is very alert responsive cooperative in tolerating tube feeds patient is still very hypoxic x-ray no significant change currently on BiPAP with 80% oxygen Review of Systems Unremarkable Physical Examination - Vital Signs Temperature: 97.8 F Blood Pressure: 135/57 Pulse: 82 Respirations: 25 Pulse Ox (%): 92 - Physical Exam General: Alert, In no apparent distress, Oriented x3 Respiratory: Clear to auscultation bilaterally Cardiovascular: No edema, Regular rate/rhythm, Normal S1 S2 Assessment & Plan - Problems (Diagnosis) (1) Respiratory failure Current Visit: Yes Status: Acute Plan: Patient admitted with ARDS he is on currently on BiPAP settings I EPAP 20 EPAP 14 80% oxygen. Blood gases to show significant hypoxemia with a PO2 around 55 on 80% oxygen. Patient is also currently in negative fluid balance with Lasix. Dobhoff on 40 cc an hr. Dietary Consul tomorrow was inserted day yesterday any seems to be tolerating tube. Add attack Consul 2 no evidence of active ongoing sepsis Dc meropenem and vancomycin change IV levofloxacin for atypical coverage labs reviewed white count is still normal pro calcitonin level he has normal cultures are all negative no evidence of active ongoing sepsis patient is not coughing up any sputum bedside physical PET Qualifiers: Chronicity: acute on chronic
--- NOTE | 2018-12-31 12:24 | RAD REPORT ---
EXAM DESCRIPTION: RAD - Chest Single View - 12/31/2018 9:11 am CLINICAL HISTORY: Pneumonia Chest pain. COMPARISON: Abdomen 1 View (KUB) dated 12/30/2018; Chest Single View dated 12/30/2018; Chest Single Vi ew dated 12/29/2018; Chest Single View dated 12/28/2018 FINDINGS: Portable technique limits examination quality. Right upper lobe, left lower lobe and right mid lung pneumonia again seen, appearing fractionally imp roved. The heart is moderately enlarged in size. Enteric tube descends into the stomach. IMPRESSION: Mild improvement in bilateral pneumonia pattern since preceding day's study.
[2018-12-31] MEDS: ENOXAPARIN 40 MG/0.4 ML SQ SCH (16:05)
[2018-12-31] MEDS: Levofloxacin500mg IV 500 MG/100 ML BAG IV SCH (20:07)
[2018-12-31] MEDS: GABAPENTIN 100 MG CAP PO SCH (20:08)
[2018-12-31] MEDS: TAMSULOSIN 0.4 MG SR CAP PO SCH (20:08)
[2018-12-31] MEDS ORDERED: VANCOMYCIN 2 GM in NA CHLORIDE 0.9% 500 ML IVPB SCH (23:00)
[2019-01-01] MEDS: METHYLPREDNISOLONE 40 MG INJ IV SCH ×3 (00:07→16:26)
[2019-01-01] MEDS: ONDANSETRON 4 MG/2 ML VIAL IV PRN ×2 (03:30→12:22)
[2019-01-01 05:04] LABS: Arterial Blood Carboxyhemoglob 1.4 % (0-1.5); Blood Gas Oxyhemoglobin 85.2 % (94-97); Blood O2 Saturation 86.9 % (92-98.5)
[2019-01-01 05:11] LABS: Absolute Lymphocytes (CBC) 0.3 K/uL (0.7-4.9); Basophils % 0.4 % (0-1.3); Hematocrit 32.6 % (39.6-49.0); Lymphocytes % 3.8 % (15.3-44.8); MPV 8.4 fL (7.6-11.3); RBC Red Blood Cell Count 3.35 M/uL (4.33-5.43)
[2019-01-01 05:35] LABS: Albumin 2.6 g/dL (3.4-5.0); Bilirubin Total 0.4 mg/dL (0.2-1.0); Magnesium 2.6 mg/dL (1.8-2.4); Potassium 4.3 mmol/L (3.5-5.1)
[2019-01-01] MEDS: LEVOTHYROXINE SOD 0.05 MG TABLET PO SCH (05:43)
--- NOTE | 2019-01-01 08:18 | RAD REPORT ---
EXAM DESCRIPTION: RAD - Chest Single View - 01/01/2019 6:23 am CLINICAL HISTORY: penumonia Chest pain. COMPARISON: Chest Single View dated 12/31/2018; Abdomen 1 View (KUB) dated 12/30/2018; Chest Single Vi ew dated 12/30/2018; Chest Single View dated 12/29/2018 FINDINGS: Portable technique limits examination quality. Infiltrate again noted in the right mid lung and right upper lobe appearing mildly progressive since the prior study. The heart is mildly enlarged in size. Enteric tube with descends into the upper abdo men. IMPRESSION: Mild progression in right-sided pneumonia since prior study.
--- NOTE | 2019-01-01 08:33 | P.PN ---
Subjective Date of Service: 01/01/19 Chief Complaint: Respiratory failure No change patient condition is stable tolerating BiPAP still requiring up to 75- 80% oxygen hypoxic chest x-ray no significant change Review of Systems is unable to be obtained Physical Examination - Vital Signs Temperature: 97.1 F Blood Pressure: 156/70 Pulse: 80 Respirations: 20 Pulse Ox (%): 90 - Physical Exam General: Alert, Cooperative Respiratory: Clear to auscultation bilaterally Cardiovascular: Regular rate/rhythm, Normal S1 S2 Assessment & Plan - Problems (Diagnosis) (1) Respiratory failure Current Visit: Yes Status: Acute Plan: Patient admitted with respiratory failure no evidence of active ongoing sepsis most likely he has ARDS is stable on a BiPAP has not progressed continue with steroids I have also added vitamin-C and thymine continue with diuretics maintaining slight negative fluid balance bedside physical therapy dietary residence counselor L tach consult Blood cultures are so far negative Qualifiers: Chronicity: acute on chronic
[2019-01-01] MEDS: THIAMINE 200 MG/2 ML INJ IVP SCH (08:48)
[2019-01-01] MEDS: TIMOPTIC 0.5% OPTH SCH ×2 (08:48→20:06)
[2019-01-01] MEDS: FUROSEMIDE 20 MG/ 2ML VIAL IV SCH ×2 (08:48→16:26)
[2019-01-01] MEDS: BRIMONIDINE TARTRATE 0.2% OPTH SCH ×2 (08:48→20:06)
[2019-01-01] MEDS: ASCORBIC ACID 500 MG TABLET PO SCH (08:49)
[2019-01-01] MEDS: CLOPIDOGREL 75 MG TABLET PO SCH (08:49)
[2019-01-01] MEDS ORDERED: POLYETHYL GLY 3350 17 GM/DOSE FT PRN (09:00)
[2019-01-01] MEDS: PROMETHAZINE-DM SYRUP PO PRN ×3 (09:19→21:53)
--- NOTE | 2019-01-01 09:59 | ECHO ---
HEIGHT: 5 ft 9 in WEIGHT: 174 lb 11.2 oz DATE OF STUDY: 01/01/[address]: Kevin Patten MD 2-DIMENSIONAL: YES M.MODE: YES DOPPLER: YES COLOR FLOW: YES TDS: PORTABLE: YES DEFINITY: BUBBLE STUDY: DIAGNOSIS: EDEMA, DYSPNEA, VIRAL CARIOMYOPATHY CARDIAC HISTORY: CATHERIZATION: NO SURGERY: NO PROSTHETIC VALVE: NO PACEMAKER: NO MEASUREMENTS (cm) DIASTOLIC (NORMALS) SYSTOLIC (NORMALS) IVSd 0.9 (0.6-1.2) LA Diam 4.0 (1.9-4.0) LVEF 57% LVIDd 3.7 (3.5-5.7) LVIDs 2.6 (2.0-3.5) %FS 29% LVPWd 1.0 (0.6-1.2) Ao Diam 3.1 (2.0-3.7) 2 DIMENSIONAL ASSESSMENT: RIGHT ATRIUM: NORMAL LEFT ATRIUM: DILATED RIGHT VENTRICLE: NORMAL LEFT VENTRICLE: NORMAL TRICUSPID VALVE: NORMAL MITRAL VALVE: MITRAL ANNULAR CALCIFICATION PULMONIC VALVE: NORMAL AORTIC VALVE: SCLEROSIS PERICARDIAL EFFUSION: NONE AORTIC ROOT: NORMAL LEFT VENTRICULAR WALL MOTION: NORMAL DOPPLER/COLOR FLOW: MILD TO MODERATE MITRAL REGURGITATION. MILD TRICUSPID REGURGITATION. MODERATE TO SEVERE PULMONARY HYPERTENSION. ESTIMATED RIGHT VENTRICULAR SYSTOLIC PRESSURE 55-65 mmHg. COMMENTS: NORMAL LEFT VENTRICULAR EJECTION FRACTION. DILATED LEFT ATRIUM. MITRAL ANNULAR CALCIFICATION. AORTIC SCLEROSIS WIT NO AORTIC STENOSIS OR AORTIC REGURGITATION. MILD TO MODERATE MITRAL REGURGITATION. MILD TRICUSPID REGURGITATION. MODERATE TO SEVERE PULMONARY HYPERTENSION. TECHNOLOGIST: DAVID FERNANDEZ
[2019-01-01] MEDS: VITAL AF 1,000 ML BOT RTH SCH (13:50)
[2019-01-01] MEDS: IPRATROPIUM BROM 0.5MG/2.5ML NEB PRN ×2 (14:09→19:20)
[2019-01-01] MEDS: ALBUTEROL 2.5 MG/3 ML NEB SOL NEB PRN ×2 (14:09→19:20)
--- NOTE | 2019-01-01 15:39 | PN ---
Patient is in ICU for respiratory failure. He is not anjali to get off BIPAP yet. He is clinically stable otherwise. Denies any chest pain, nausea, vomiting. Physical Examination: General: He is weak. Vital Signs: Blood pressure 147/64, pulse 104, temperature 97. HEENT: No JVD. No carotid bruits. Chest: Decreased breath sounds bilaterally. Minimal rales. Heart: Regular. Abdomen: No guarding, rebound, rigidity. Laboratory Data: Hemoglobin is 11.1, WBC 7.1. Chem-7 is stable. Last echocardiogram showed normal ejection fraction. About a month ago. Chest x- ray continues to show right-sided diffuse opacity. Assessment: Diffuse pneumonia, both side extension, right more than left. Continue meropenem and vancomycin. Hopefully start improving on antibiotics. His white count is normal. He failed the Levaquin on outpatient basis. On review of the x-ray today, the infiltrates look smaller compared to before. On the right side, he has right upper lobe, right middle lobe, and lower lobe patches, but all of them are less dense compared to yesterday and the day before. Assessment And Plan: 1. Improving bilateral pneumonia. Continue antibiotics. Solu-Medrol p.r.n. per Dr. Salinas. 2. Chronic obstructive pulmonary disease by history. Prognosis remains guarded. Patient's son at bedside. He is aware of the condition. BENJAMÍND/MODL Voice ID: [id number] Report ID: [id number] SIM
--- NOTE | 2019-01-01 16:44 | RAD REPORT ---
EXAM DESCRIPTION: RAD - Chest Single View - 01/01/2019 4:17 pm CLINICAL HISTORY: PICC line placement COMPARISON: None. FINDINGS: Portable chest was obtained following placement of a left upper extremity PICC line. The c atheter tip is in the distal SVC. Airspace opacification remains in the mid right lung field and in the left lower lung field..
[2019-01-01] MEDS: ENOXAPARIN 40 MG/0.4 ML SQ SCH (16:51)
[2019-01-01] MEDS: METOPROLOL TARTRATE 5 MG/5 ML INJ IV SCH ×2 (18:30→23:28)
[2019-01-01] MEDS: Levofloxacin500mg IV 500 MG/100 ML BAG IV SCH (20:05)
[2019-01-01] MEDS: GABAPENTIN 100 MG CAP PO SCH (20:06)
[2019-01-01] MEDS: TAMSULOSIN 0.4 MG SR CAP PO SCH (20:06)
--- NOTE | 2019-01-01 23:32 | PN ---
Subjective: Mr. Tavarez is about the same. Still very short of breath, at rest. He denies any ch est pain, nausea, or vomiting. Physical Examination: Vital Signs: Blood pressure 160/80, pulse is 91. HEENT: No JVD. No carotid bruits. Accessory muscles of breathing at work and uses BiPAP to keep hi s oxygen saturation up to 90% to 95% on 60% FiO2. Abdomen: No guarding, no rebound, no rigidity. Chest: Decreased breath sounds bilaterally. No rales. Laboratory Data: White count of 6700, hemoglobin is 11, hematocrit 32, BUN 50, creatinine 0.85, pota ssium 4.3. Assessment And Plan: 1.Respiratory failure. Patient has been on BiPAP since admission. He is not able to get off BiPAP. Dr. Salinas has changed antibiotics to Levaquin as he needs atypical coverage. Patient was on ana penem and vancomycin. Per Dr. Salinas, the white count is normal. Procalcitonin is normal. So, we are going to reduce antibiotic coverage to atypical antibiotic coverage at this point. 2.Placement, patient will be needing long-term acute care facility because he is not improving on cu rrent therapy with steroids and antibiotics plus nebulizer treatments. RVD/MODL Voice ID: [id number] Report ID: [id number]
[2019-01-02] MEDS: METHYLPREDNISOLONE 40 MG INJ IV SCH ×3 (00:08→21:21)
[2019-01-02] MEDS: IPRATROPIUM BROM 0.5MG/2.5ML NEB PRN (01:00)
[2019-01-02] MEDS: ALBUTEROL 2.5 MG/3 ML NEB SOL NEB PRN (01:00)
[2019-01-02] MEDS: METOPROLOL TARTRATE 5 MG/5 ML INJ IV SCH ×3 (05:26→17:08)
[2019-01-02] MEDS: LEVOTHYROXINE SOD 0.05 MG TABLET PO SCH (05:41)
[2019-01-02] MEDS: CLOPIDOGREL 75 MG TABLET PO SCH (08:10)
[2019-01-02] MEDS: FUROSEMIDE 20 MG/ 2ML VIAL IV SCH ×2 (08:10→17:08)
[2019-01-02] MEDS: THIAMINE 200 MG/2 ML INJ IVP SCH (08:10)
[2019-01-02] MEDS: TIMOPTIC 0.5% OPTH SCH ×2 (08:12→21:21)
[2019-01-02] MEDS: BRIMONIDINE TARTRATE 0.2% OPTH SCH ×2 (08:12→21:21)
[2019-01-02] MEDS: ASCORBIC ACID 500 MG TABLET PO SCH (08:12)
--- NOTE | 2019-01-02 08:18 | RAD REPORT ---
EXAM DESCRIPTION: Tamiko Single View01/02/2019 6:50 am CLINICAL HISTORY: Cough COMPARISON: January 01 FINDINGS: Mild worsening in the right lung alveolar opacities. No significant change in the left jr ng opacities. Heart remains enlarged. PICC line remains in place IMPRESSION: Mild worsening in the right pneumonia. No significant change in the left pneumonia
[2019-01-02 09:32] LABS: Arterial Blood Carboxyhemoglob 1.3 % (0-1.5); Blood Gas Oxyhemoglobin 92.5 % (94-97)
[2019-01-02] MEDS: VANCOMYCIN 1.5 GM in NA CHLORIDE 0.9% 500 ML IVPB SCH (09:49)
--- NOTE | 2019-01-02 12:04 | P.PN ---
Subjective Date of Service: 01/02/19 Chief Complaint: Respiratory failure No change in patient's condition is still requiring up to 80% oxygen otherwise is alert responsive cooperative hemodynamically stable patient is in negative fluid balance. He desats on minimal exertion Review of Systems Unremarkable Physical Examination - Vital Signs Temperature: 97.1 F Blood Pressure: 138/87 Pulse: 76 Respirations: 14 Pulse Ox (%): 93 - Physical Exam General: Alert, Cooperative Neck: Supple Respiratory: Crackles/rales (Crackles bilaterally) Cardiovascular: No edema, Normal S1 S2 Assessment & Plan - Problems (Diagnosis) (1) Respiratory failure Current Visit: Yes Status: Acute Plan: Patient admitted with ARDS no evidence of active sepsis is in negative fluid balance on steroids will requiring after 80% oxygen. It appears on 75% FiO2 is the PO2 has improved his very high risk for bronchoscopy. I have ordered an HIV test and use dose of steroids vancomycin was started by Dr. Patten tolerating tube feeds seen by dietitian bedside physical therapy chest x-ray still shows bilateral infiltrates Qualifiers: Chronicity: acute on chronic Discharge Plan: LTAC
[2019-01-02] MEDS: ENOXAPARIN 40 MG/0.4 ML SQ SCH (17:08)
[2019-01-02] MEDS: Levofloxacin500mg IV 500 MG/100 ML BAG IV SCH (21:20)
[2019-01-02] MEDS: TAMSULOSIN 0.4 MG SR CAP PO SCH (21:21)
[2019-01-02] MEDS: GABAPENTIN 100 MG CAP PO SCH (21:21)
--- NOTE | 2019-01-03 02:41 | PN ---
Subjective: Mr. Tavarez is doing about the same. He is still quite short of breath at rest, needi ng BiPAP to breath. Pulse oximetry about 95% on 60% FiO2 with BiPAP. Objective: Vital Signs: His blood pressure 140/70, pulse is 79. HEENT: No JVD. No carotid bruits. Chest: Decreased breath sound bilaterally. Lab Examination: Hemoglobin 11, hematocrit 32, BUN 50, creatinine 0.85. Assessment And Plan: Serial x-ray done every day. The pneumonia seems to be worsening for the last couple of days. I have talked to Dr. Turcios and we added vancomycin back to the regimen. He will be on Levaquin and vancomycin, even though we do not have a high procalcitonin clinically, it is some thing what we need to do to provide appropriate coverage for this gentleman. We waiting for [facility] for him as he will take a long time to recover. JAMIE/BRISEYDA Voice ID: [id number] Report ID: [id number]
[2019-01-03] MEDS: VANCOMYCIN 1.5 GM in NA CHLORIDE 0.9% 500 ML IVPB SCH ×2 (03:50→20:42)
[2019-01-03] MEDS: METOPROLOL TARTRATE 5 MG/5 ML INJ IV SCH ×4 (05:36→17:55)
[2019-01-03] MEDS: LEVOTHYROXINE SOD 0.05 MG TABLET PO SCH (05:37)
[2019-01-03 06:17] LABS: Arterial Blood Carboxyhemoglob 1.4 % (0-1.5); Blood O2 Saturation 95.8 % (92-98.5)
--- NOTE | 2019-01-03 07:05 | RAD REPORT ---
EXAM DESCRIPTION: RAD - Chest Single View - 01/03/2019 6:41 am CLINICAL HISTORY: Pneumonia COMPARISON: January 02 TECHNIQUE: AP portable chest image was obtained 0635 hours . FINDINGS: Mild improvement in the right lung field pneumonia noted. Bilateral lung base interstitial opacification remains. Feeding tube is in place along with left-side PICC line. Heart and vasculatur e are normal. No measurable pleural effusion and no pneumothorax. No acute bony abnormality seen. No acute aortic findings suspected. IMPRESSION: Mild improvement in the right lung field pneumonia.
[2019-01-03] MEDS: CLOPIDOGREL 75 MG TABLET PO SCH (09:00)
[2019-01-03] MEDS ORDERED: WATER FOR INJ,STERILE 10 ML IV ONE (09:00)
[2019-01-03] MEDS: ASCORBIC ACID 500 MG TABLET PO SCH (09:00)
[2019-01-03] MEDS ORDERED: ALTEPLASE 2 MG/VIAL IV ONE (09:00)
[2019-01-03] MEDS: TIMOPTIC 0.5% OPTH SCH ×2 (09:07→20:42)
[2019-01-03] MEDS: BRIMONIDINE TARTRATE 0.2% OPTH SCH ×2 (09:08→20:41)
[2019-01-03] MEDS: PROMETHAZINE-DM SYRUP PO PRN (09:08)
[2019-01-03] MEDS: FUROSEMIDE 20 MG/ 2ML VIAL IV SCH ×2 (09:19→17:56)
[2019-01-03] MEDS: METHYLPREDNISOLONE 40 MG INJ IV SCH ×2 (09:19→20:41)
[2019-01-03] MEDS: THIAMINE 200 MG/2 ML INJ IVP SCH (09:20)
[2019-01-03 11:44] LABS: Arterial Blood Carboxyhemoglob 1.3 % (0-1.5); Blood Gas Oxyhemoglobin 89.5 % (94-97)
[2019-01-03] MEDS: VITAL AF 1,000 ML BOT RTH SCH (14:56)
[2019-01-03] MEDS: ENOXAPARIN 40 MG/0.4 ML SQ SCH (17:56)
[2019-01-03] MEDS: Levofloxacin500mg IV 500 MG/100 ML BAG IV SCH (19:35)
[2019-01-03] MEDS: IPRATROPIUM BROM 0.5MG/2.5ML NEB PRN (19:35)
[2019-01-03] MEDS: ALBUTEROL 2.5 MG/3 ML NEB SOL NEB PRN (19:35)
[2019-01-03] MEDS: GABAPENTIN 100 MG CAP PO SCH (20:41)
[2019-01-03] MEDS: TAMSULOSIN 0.4 MG SR CAP PO SCH (20:41)
[2019-01-04] MEDS: METOPROLOL TARTRATE 5 MG/5 ML INJ IV SCH ×4 (00:08→16:59)
--- NOTE | 2019-01-04 00:13 | PN ---
Subjective: Patient is feeling a lot better. Denies chest pain, nausea, or vomiting. He is still o n BiPAP and not able to get off BiPAP without hypoxia. Clinically, he is doing a lot better. He is getting stronger he says and he has no complaints. Objective: Vital Signs: Blood pressure 140/77, pulse is 78. HEENT: No JVD. No carotid bruits. Chest: Decreased breath sounds bilaterally. Heart: Regular. Abdomen: No guarding, no rebound, no rigidity. Assessment And Plan: 1.Pneumonia. Levaquin and vancomycin added back. Clinically improved. Chest x-ray improved compar ed to yesterday actually. 2.Long-term acute care referral, insurance company called and rejected our request for LTAC transfer . I told her to give me that in written, because if he gets worse in the senior care, they will be responsible for his worsening and not getting care on time, and she says she will do so. BENJAMÍND/MODL Voice ID: [id number] Report ID: [id number]
[2019-01-04] MEDS: ALBUTEROL 2.5 MG/3 ML NEB SOL NEB PRN (01:25)
[2019-01-04] MEDS: IPRATROPIUM BROM 0.5MG/2.5ML NEB PRN (01:25)
[2019-01-04] MEDS: LEVOTHYROXINE SOD 0.05 MG TABLET PO SCH (05:53)
[2019-01-04] MEDS: METHYLPREDNISOLONE 40 MG INJ IV SCH ×2 (09:33→20:34)
[2019-01-04] MEDS: THIAMINE 200 MG/2 ML INJ IVP SCH (09:33)
[2019-01-04] MEDS: FUROSEMIDE 20 MG/ 2ML VIAL IV SCH ×2 (09:34→16:59)
[2019-01-04] MEDS: CLOPIDOGREL 75 MG TABLET PO SCH (09:34)
[2019-01-04] MEDS: ASCORBIC ACID 500 MG TABLET PO SCH (09:34)
[2019-01-04] MEDS: BRIMONIDINE TARTRATE 0.2% OPTH SCH ×2 (09:35→20:34)
[2019-01-04] MEDS: TIMOPTIC 0.5% OPTH SCH ×2 (09:52→20:30)
--- NOTE | 2019-01-04 10:53 | P.PN ---
Subjective Date of Service: 01/04/19 Chief Complaint: Respiratory failure Patient's condition is improving his oxygen requirements have now decreased to 55% ABGs pending otherwise is alert responsive cooperative Review of Systems General: Weakness Respiratory: Shortness of Breath Physical Examination - Vital Signs Temperature: 97.3 F Blood Pressure: 161/71 Pulse: 86 Respirations: 23 Pulse Ox (%): 93 - Physical Exam General: Alert, Oriented x3 Respiratory: Clear to auscultation bilaterally Cardiovascular: No edema, Normal S1 S2 Assessment & Plan - Problems (Diagnosis) (1) Respiratory failure Current Visit: Yes Status: Acute Plan: Patient admitted with respiratory failure he is clinically improving oxygen requirement is now decreased to 55% will continue weaning vital signs stable repeat labs continue with present therapy no change cultures so far negative Qualifiers: Chronicity: acute on chronic
[2019-01-04 11:42] LABS: Hematocrit 38.1 % (39.6-49.0); MPV 9.2 fL (7.6-11.3); RBC Red Blood Cell Count 3.91 M/uL (4.33-5.43)
[2019-01-04 11:58] LABS: BUN Blood Urea Nitrogen 49 mg/dL (7-18); Bicarbonate 35 mmol/L (21-32); Glucose Level 129 mg/dL (74-106); Sodium Level 140 mmol/L (136-145)
[2019-01-04 12:04] LABS: Arterial Blood Carboxyhemoglob 1.5 % (0-1.5); Blood Gas Oxyhemoglobin 87.1 % (94-97); Blood O2 Saturation 88.8 % (92-98.5)
[2019-01-04 12:12] LABS: HIV AG/AB 4TH GEN Non-reactive (Non-reactive)
--- NOTE | 2019-01-04 14:06 | RAD REPORT ---
EXAM DESCRIPTION: RAD - Chest Single View - 01/04/2019 1:59 pm CLINICAL HISTORY: pneumonia Chest pain. COMPARISON: Chest Single View dated 01/03/2019; Chest Single View dated 01/02/2019; Chest Single View dated 01/01/2019; Chest Single View dated 01/01/2019 FINDINGS: Portable technique limits examination quality. Mild improvement is seen in the right mid left lung field pneumonia since comparative study. The hear t is moderately enlarged. Enteric tube descends into the stomach. Left-sided PICC line has tip in the SVC near the junction with the right atrium.
[2019-01-04] MEDS: VANCOMYCIN 1.5 GM in NA CHLORIDE 0.9% 500 ML IVPB SCH (14:22)
[2019-01-04] MEDS: ENOXAPARIN 40 MG/0.4 ML SQ SCH (16:59)
[2019-01-04] MEDS ORDERED: VITAL HP 1,000 ML BOT RTH SCH (17:00)
[2019-01-04] MEDS: Levofloxacin500mg IV 500 MG/100 ML BAG IV SCH (19:56)
[2019-01-04] MEDS: TAMSULOSIN 0.4 MG SR CAP PO SCH (20:33)
[2019-01-04] MEDS: GABAPENTIN 100 MG CAP PO SCH (20:33)
--- NOTE | 2019-01-04 23:24 | PN ---
Subjective: Mr. Tavarez is doing better. Denies any chest pain, nausea, vomiting. He is feeling better and stronger over the last couple of days. Objective: Vital Signs: Blood pressure is stable. Oxygen saturation is about 90% on BiPAP, still needing oxygen support. Chest: Decreased breath sounds bilaterally. Heart: Regular. Abdomen: No guarding, rebound, or rigidity. Assessment And Plan: Once again, when we stopped meropenem and vancomycin, his pneumonia got worse. We put him back on Levaquin and vancomycin and pneumonia improved. I will suspect he needs vancomycin IV for 14 days at least. We have tried to get him in long-term care facility. Doctor from [facility] did not approve the transfer, I talked to doctor myself. They want to keep him here until he is stable, which may take 1 more week for his BiPAP to be weaned off and then he will be placed in long term if possible. JAMIE/BRISEYDA Voice ID: [id number] Report ID: [id number] SIM
[2019-01-04] MEDS: ACETAMINOPHEN 500 MG TAB PO PRN (23:52)
[2019-01-05] MEDS: METOPROLOL TARTRATE 5 MG/5 ML INJ IV SCH ×4 (00:23→17:07)
[2019-01-05] MEDS: LEVOTHYROXINE SOD 0.05 MG TABLET PO SCH (05:46)
--- NOTE | 2019-01-05 07:09 | RAD REPORT ---
EXAM DESCRIPTION: RAD - Chest Single View - 01/05/2019 6:39 am CLINICAL HISTORY: Pneumonia COMPARISON: January 04 TECHNIQUE: AP portable chest image was obtained 0621 hours . FINDINGS: Right-sided pneumonia findings may be fractionally improved. Any interval improvement is m inimal. No progressive process in either lung field. PICC line and feeding tube remain in place. Tip of the feeding tube has been retracted and the tip is across the GE junction. Heart and vasculature a re normal. No measurable pleural effusion and no pneumothorax. No acute bony abnormality seen. No acu te aortic findings suspected. IMPRESSION: Stable or fractionally improved right lung field pneumonia. No progressive process. Feeding tube has been retracted. Tip is at the GE junction barely within the lumen of the stomach. Th is is a substantial retraction in positioning of the tube since prior day study.
[2019-01-05] MEDS: TIMOPTIC 0.5% OPTH SCH ×2 (08:54→20:39)
[2019-01-05] MEDS: THIAMINE 200 MG/2 ML INJ IVP SCH (08:54)
[2019-01-05] MEDS: METHYLPREDNISOLONE 40 MG INJ IV SCH (08:54)
[2019-01-05] MEDS: FUROSEMIDE 20 MG/ 2ML VIAL IV SCH (08:54)
[2019-01-05] MEDS: ASCORBIC ACID 500 MG TABLET PO SCH (08:54)
[2019-01-05] MEDS: CLOPIDOGREL 75 MG TABLET PO SCH (08:54)
[2019-01-05] MEDS: BRIMONIDINE TARTRATE 0.2% OPTH SCH ×2 (08:55→20:39)
[2019-01-05] MEDS: VANCOMYCIN 1.5 GM in NA CHLORIDE 0.9% 500 ML IVPB SCH (08:55)
[2019-01-05] MEDS: PROMETHAZINE-DM SYRUP PO PRN (10:32)
[2019-01-05 11:08] LABS: Arterial Blood Carboxyhemoglob 1.5 % (0-1.5); Blood Gas Oxyhemoglobin 93.8 % (94-97); Blood O2 Saturation 95.7 % (92-98.5)
--- NOTE | 2019-01-05 13:47 | P.PN ---
Subjective Date of Service: 01/05/19 Chief Complaint: Respiratory failure Patient has improved significantly is currently on non-rebreather with satisfactory oxygenation Review of Systems Respiratory: Cough, Shortness of Breath Physical Examination - Vital Signs Temperature: 97.5 F Blood Pressure: 120/60 Pulse: 81 Respirations: 20 Pulse Ox (%): 96 - Physical Exam General: Alert HEENT: Atraumatic Respiratory: Clear to auscultation bilaterally Cardiovascular: No edema, Regular rate/rhythm Assessment & Plan - Problems (Diagnosis) (1) Respiratory failure Current Visit: Yes Status: Acute Plan: Patient is doing much better is currently on non-rebreather change to p.o. prednisone and p.o. levofloxacin no evidence of active ongoing sepsis blood gases reviewed he does have respiratory alkalosis the blood gases were done on 100% non-rebreather chest x-ray also has not continue with prednisone 20 mg twice a day and will taper off in a few days Dc Lasix labs reviewed Qualifiers: Chronicity: acute on chronic
[2019-01-05] MEDS: PROMETHAZINE-DM 5 ML OSYR PO PRN ×2 (15:29→21:30)
[2019-01-05] MEDS: ENOXAPARIN 40 MG/0.4 ML SQ SCH (16:49)
--- NOTE | 2019-01-05 19:55 | PN ---
Subjective: Mr. Tavarez is feeling really lot better for last 3 days. Denies any chest pain, naus ea, vomiting. His breathing has improved. Physical Examination: Vital Signs: Blood pressure 120/60, pulse is 81, temperature 97.5. HEENT: No JVD. No carotid brui ts. Chest: Good breath sounds bilaterally. Heart: Regular. Abdomen: No guarding, rebound, or ri gidity. Laboratory Data: His ABG shows improvement of pH 7.51, pCO2 of 37, pO2 of 77, O2 saturation 100%, no n-rebreather, off the BiPAP at this point. White count is 12,000 on steroids. Assessment And Plan: Bilateral pneumonia, atypical pneumonia is possible, but he failed the Levaquin antibiotic on outpatient basis after 14 days of antibiotics. He ended up in hospital again with wor sening respiratory failure and a large pneumonia on the right side and improved only after vancomycin IV. Even though his procalcitonin is borderline at 0.5, I will continue vancomycin for about 14 day s. We were unable to collect the sputum culture because he is not able to do so with severe respirat ory distress. Prognosis is guarded. Patient is referred to the long-term acute care facility. His insurance company has refused to transfer him, so he will be staying here until he is better and goes to intermediate after being off oxygen or at least on a lower level of oxygen supplementation and fi nishing IV vancomycin here. JAMIE/MODL Voice ID: [id number] Report ID: [id number]
[2019-01-05] MEDS: predniSONE 20 MG TAB PO SCH (20:39)
[2019-01-05] MEDS: GABAPENTIN 100 MG CAP PO SCH (20:39)
[2019-01-05] MEDS: TAMSULOSIN 0.4 MG SR CAP PO SCH (20:39)
[2019-01-06] MEDS: VANCOMYCIN 1.5 GM in NA CHLORIDE 0.9% 500 ML IVPB SCH ×2 (02:49→20:21)
[2019-01-06] MEDS: PROMETHAZINE-DM 5 ML OSYR PO PRN (03:11)
[2019-01-06] MEDS: ONDANSETRON 4 MG/2 ML VIAL IV PRN (03:45)
[2019-01-06 05:16] LABS: Absolute Lymphocytes (CBC) 0.5 K/uL (0.7-4.9); Basophils % 0.2 % (0-1.3); Hematocrit 37.9 % (39.6-49.0); MPV 9.8 fL (7.6-11.3); RBC Red Blood Cell Count 3.89 M/uL (4.33-5.43)
[2019-01-06 05:35] LABS: BUN Blood Urea Nitrogen 52 mg/dL (7-18); Bicarbonate 32 mmol/L (21-32); Glucose Level 129 mg/dL (74-106); Magnesium 2.4 mg/dL (1.8-2.4); Sodium Level 141 mmol/L (136-145)
[2019-01-06] MEDS: METOPROLOL TARTRATE 5 MG/5 ML INJ IV SCH ×3 (05:46→12:00)
[2019-01-06] MEDS: LEVOTHYROXINE SOD 0.05 MG TABLET PO SCH (05:46)
--- NOTE | 2019-01-06 08:20 | RAD REPORT ---
EXAM DESCRIPTION: RAD - Chest Single View - 01/06/2019 6:56 am CLINICAL HISTORY: Pneumonia COMPARISON: January 05, January 04 TECHNIQUE: AP portable chest image was obtained 0652 hours . FINDINGS: Lung volumes remain relatively low. Interstitial and airspace opacification of the right u pper lobe is fractionally improved. Retrocardiac left base assessment remains limited. Lower right jr ng field opacification remains. Cardiac silhouette remains enlarged. Upper lobe vasculature within normal limits. PICC line remains in place. Feeding tube tip remains at or near the GE junction. Tip is probably only a few cm into the lumen of the stomach. No measurable pleural effusion and no pneumothorax. IMPRESSION: Partial clearing of the right upper lobe pneumonia. Bilateral lung base opacification has not changed. Feeding tube tip remains at the GE junction. Tip is only a few cm into the lumen of the stomach.
[2019-01-06 08:23] LABS: Blood Morphology Comment NOT SEEN (NOT SEEN); Platelet Estimate ADEQ; Urine White Blood Cell Casts OK
[2019-01-06] MEDS: BRIMONIDINE TARTRATE 0.2% OPTH SCH ×2 (08:52→20:22)
[2019-01-06] MEDS: levoFLOXacin 500 MG TAB PO SCH (08:52)
[2019-01-06] MEDS: predniSONE 20 MG TAB PO SCH ×2 (08:52→20:21)
[2019-01-06] MEDS: CLOPIDOGREL 75 MG TABLET PO SCH (08:52)
[2019-01-06] MEDS: TIMOPTIC 0.5% OPTH SCH ×2 (08:52→20:22)
[2019-01-06 10:49] LABS: Arterial Blood Carboxyhemoglob 1.4 % (0-1.5); Blood Gas Oxyhemoglobin 87.7 % (94-97); Blood O2 Saturation 89.4 % (92-98.5)
[2019-01-06] MEDS: ENOXAPARIN 40 MG/0.4 ML SQ SCH (18:01)
[2019-01-06] MEDS: TAMSULOSIN 0.4 MG SR CAP PO SCH (20:21)
[2019-01-06] MEDS: GABAPENTIN 100 MG CAP PO SCH (20:21)
--- NOTE | 2019-01-06 20:55 | PN ---
Subjective: Patient is feeling lot better. Denies chest pain, nausea, vomiting. He is able to main tain oxygenation up to 90% on non-rebreather now. He had orthostatic hypotension at the same time. He is on metoprolol IV for blood pressure control now, which will change of address clerk to p.o. small dose 25 m g. Physical Examination: Vital Signs: Blood pressure 86/54 when he sat upon our device to get physical therapy now and he has done this at home. Chest: Decreased breath sound bilaterally. Heart: Regular. Laboratory Data: White count 95575, on steroids. Chem 7 is reasonably normal. Assessment And Plan: 1.Methicillin-resistant Staphylococcus aureus pneumonia. Continue IV antibiotics, IV vancomycin, p. o. Levaquin, even though procalcitonin is borderline few days after restarting antibiotics. I would continue vancomycin, because I guess that is only one which has improved his condition in the past. He failed Levaquin before he came to this hospital admission. 2.Hypotension as described below. We have made some changes. 3.Chronic obstructive pulmonary disease. Continue nebulizers. JAMIE/MODL Voice ID: [id number] Report ID: [id number]
[2019-01-07 05:44] LABS: Absolute Lymphocytes (CBC) 0.5 K/uL (0.7-4.9); Basophils % 0.2 % (0-1.3); Hematocrit 37.2 % (39.6-49.0); Lymphocytes % 4.2 % (15.3-44.8); RBC Red Blood Cell Count 3.83 M/uL (4.33-5.43)
[2019-01-07 05:53] LABS: BUN Blood Urea Nitrogen 50 mg/dL (7-18); Bicarbonate 30 mmol/L (21-32); Glucose Level 103 mg/dL (74-106); Potassium 4.4 mmol/L (3.5-5.1); Sodium Level 141 mmol/L (136-145)
[2019-01-07] MEDS: LEVOTHYROXINE SOD 0.05 MG TABLET PO SCH (06:00)
[2019-01-07] MEDS: METOPROLOL XL 25 MG TAB PO SCH (06:00)
[2019-01-07 06:11] LABS: Blood Morphology Comment NOT SEEN (NOT SEEN); Platelet Estimate ADEQ; Urine White Blood Cell Casts OK
[2019-01-07] MEDS: predniSONE 20 MG TAB PO SCH ×2 (08:19→20:39)
[2019-01-07] MEDS: TIMOPTIC 0.5% OPTH SCH ×2 (08:19→20:40)
[2019-01-07] MEDS: BRIMONIDINE TARTRATE 0.2% OPTH SCH ×2 (08:19→20:40)
[2019-01-07] MEDS: levoFLOXacin 500 MG TAB PO SCH (08:19)
[2019-01-07] MEDS: CLOPIDOGREL 75 MG TABLET PO SCH (08:19)
[2019-01-07] MEDS: ASCORBIC ACID 500 MG TABLET PO SCH (11:40)
[2019-01-07] MEDS: THIAMINE HCL 100 MG TABLET PO SCH (11:40)
[2019-01-07] MEDS: ONDANSETRON 4 MG/2 ML VIAL IV PRN ×2 (12:09→21:15)
[2019-01-07] MEDS: VANCOMYCIN 1.5 GM in NA CHLORIDE 0.9% 500 ML IVPB SCH (15:15)
[2019-01-07] MEDS: ENOXAPARIN 40 MG/0.4 ML SQ SCH (17:39)
[2019-01-07] MEDS ORDERED: ALPRAZOLAM 0.25 MG TABLET PO ONE (19:37)
[2019-01-07] MEDS: TAMSULOSIN 0.4 MG SR CAP PO SCH (20:39)
[2019-01-07] MEDS: GABAPENTIN 100 MG CAP PO SCH (20:40)
--- NOTE | 2019-01-07 23:03 | PN ---
Subjective: Mr. Tavarez is feeling good. He is still on oxygen for supplementation for hypoxia. According to notes, the pulse ox dropped down to 84% when FiO2 is brought down to 50% from 100%. Physical Examination: Vital Signs: Blood pressure 158/79, pulse is 93. HEENT: No JVD. No carotid bruits. Chest: Decreased breath sounds bilaterally. Heart: Regular. Abdomen: No guarding, no rebound, no rigidity. Laboratory Data: On lab examination, white count is 12,000 which is on steroids. Chem 7 is normal. Hemoglobin 12.7. Assessment And Plan: 1.Respiratory failure, bacterial pneumonia. ID not possible as culture is taken after being on anti biotics for a few days. MRSA suspicion is there as clinically he has improved on vancomycin only. W e will continue vancomycin for about 10-14 days. 2.Respiratory failure, BiPAP down to 100% now. It will still take a few more days to improve down t o FiO2 of 50% hopefully and he will be then transferred to group home. Start OT, and PT therapy gaitan s been started a couple of days ago. RVD/MODL Voice ID: [id number] Report ID: [id number]
[2019-01-08 05:22] LABS: Absolute Lymphocytes (CBC) 0.4 K/uL (0.7-4.9); Basophils % 0.2 % (0-1.3); Hematocrit 35.1 % (39.6-49.0); Lymphocytes % 3.4 % (15.3-44.8); MPV 9.9 fL (7.6-11.3); RBC Red Blood Cell Count 3.62 M/uL (4.33-5.43)
[2019-01-08 05:34] LABS: BUN Blood Urea Nitrogen 39 mg/dL (7-18); Bicarbonate 31 mmol/L (21-32); Glucose Level 117 mg/dL (74-106); Potassium 4.7 mmol/L (3.5-5.1); Sodium Level 142 mmol/L (136-145)
[2019-01-08] MEDS: METOPROLOL XL 25 MG TAB PO SCH (06:22)
[2019-01-08] MEDS: LEVOTHYROXINE SOD 0.05 MG TABLET PO SCH (06:22)
[2019-01-08] MEDS: TIMOPTIC 0.5% OPTH SCH ×2 (08:31→20:57)
[2019-01-08] MEDS: levoFLOXacin 500 MG TAB PO SCH (08:31)
[2019-01-08] MEDS: predniSONE 20 MG TAB PO SCH (08:31)
[2019-01-08] MEDS: ASCORBIC ACID 500 MG TABLET PO SCH (08:31)
[2019-01-08] MEDS: BRIMONIDINE TARTRATE 0.2% OPTH SCH ×2 (08:31→20:57)
[2019-01-08] MEDS: VANCOMYCIN 1.5 GM in NA CHLORIDE 0.9% 500 ML IVPB SCH (08:31)
[2019-01-08] MEDS: CLOPIDOGREL 75 MG TABLET PO SCH (08:31)
[2019-01-08] MEDS: THIAMINE HCL 100 MG TABLET PO SCH (08:31)
[2019-01-08] MEDS: IPRATROPIUM BROM 0.5MG/2.5ML NEB PRN ×3 (09:40→21:30)
[2019-01-08] MEDS: ALBUTEROL 2.5 MG/3 ML NEB SOL NEB PRN ×3 (09:40→21:30)
--- NOTE | 2019-01-08 09:48 | RAD REPORT ---
EXAM DESCRIPTION: RAD - Chest Single View - 01/08/2019 8:52 am CLINICAL HISTORY: SOB Chest pain. COMPARISON: Chest Single View dated 01/06/2019; Chest Single View dated 01/05/2019; Chest Single View dated 01/04/2019; Chest Single View dated 01/03/2019 FINDINGS: Portable technique limits examination quality. Mild worsening of bilateral pulmonary opacities seen since the comparative study, likely representing mild worsening in pulmonary edema or pneumonia. The heart is mildly enlarged in size. Left-sided PIC C line has tip in SVC. IMPRESSION: Mild worsening in lung aeration since 01/06/2019 study.
[2019-01-08] MEDS ORDERED: FUROSEMIDE 20 MG/ 2ML VIAL IV ONE (11:56)
--- NOTE | 2019-01-08 12:00 | P.PN ---
Subjective Date of Service: 01/08/19 Chief Complaint: Respiratory failure Patient's condition is worse and he has more hypoxic requiring BiPAP chest x- ray slightly worse requiring higher concentrations of oxygen Review of Systems Unremarkable Physical Examination - Vital Signs Temperature: 99.5 F Blood Pressure: 102/64 Pulse: 86 Respirations: 25 Pulse Ox (%): 90 - Physical Exam General: Alert, In no apparent distress, Oriented x3 Respiratory: Clear to auscultation bilaterally Cardiovascular: No edema Assessment & Plan - Problems (Diagnosis) (1) Respiratory failure Current Visit: Yes Status: Acute Plan: Patient's condition is worse change him over to IV steroids resume a IV Lasix labs reviewed white count is mildly elevated, otherwise chemistry unremarkable complaining of insomnia at some Lunesta Qualifiers: Chronicity: acute on chronic
[2019-01-08] MEDS: ENOXAPARIN 40 MG/0.4 ML SQ SCH (16:28)
[2019-01-08] MEDS: METHYLPREDNISOLONE 40 MG INJ IV SCH (16:28)
--- NOTE | 2019-01-08 17:53 | P.PN ---
Subjective Date of Service: 01/08/19 Chief Complaint: Respiratory failure Subjective: Worsening HE IS MORE DYSPNEIC TODAY, NEEDS BIPAP TODAY. HE DENIES CHEST PAIN. Review of Systems 10-point ROS is otherwise unremarkable General: Weakness, Malaise Respiratory: Shortness of Breath, As per HPI Physical Examination - Vital Signs Temperature: 99.5 F Blood Pressure: 130/62 Pulse: 79 Respirations: 26 Pulse Ox (%): 97 - Physical Exam General: Alert, Moderate distress HEENT: Atraumatic, PERRLA, EOMI Neck: Supple, JVD not distended Respiratory: Clear to auscultation bilaterally, Normal air movement Cardiovascular: Regular rate/rhythm, Normal S1 S2 Gastrointestinal: Normal bowel sounds, No tenderness Musculoskeletal: No tenderness Integumentary: No rashes Neurological: Normal speech, Normal tone, Normal affect Lymphatics: No axilla or inguinal lymphadenopathy - Studies Medications List Reviewed: Yes Assessment And Plan - Current Problems (Diagnosis) (1) Bilateral pneumonia Current Visit: Yes Status: Acute Plan: WORSE TODAY. THIS CAN BE ARDS. DR CASTREJON GAVE HIM IV STEROIDS NOW. WILL SEE HOW HE RESPONDS. PROCALCITIONIN IS NORMAL. CONTINUE LEVAQUIN AND VANCOMYCIN. SPUTUM NO GROWTH YET. Qualifiers: Pneumonia type: due to unspecified organism (2) COPD (chronic obstructive pulmonary disease) Current Visit: Yes Status: Chronic Plan: NEBS AND SHORT TERM STEROIDS. Qualifiers: COPD type: COPD with acute exacerbation Qualified Code(s): J44.1 - Chronic obstructive pulmonary disease with (acute) exacerbation
[2019-01-08] MEDS: ONDANSETRON 4 MG/2 ML VIAL IV PRN (17:57)
[2019-01-08] MEDS: GABAPENTIN 100 MG CAP PO SCH (20:58)
[2019-01-08] MEDS: ESZOPICLONE 1 MG TAB PO PRN (20:58)
[2019-01-08] MEDS: TAMSULOSIN 0.4 MG SR CAP PO SCH (20:58)
[2019-01-08] MEDS: ACETAMINOPHEN 500 MG TAB PO PRN (22:40)
[2019-01-09] MEDS: METHYLPREDNISOLONE 40 MG INJ IV SCH ×3 (01:06→20:19)
[2019-01-09] MEDS: VANCOMYCIN 1.5 GM in NA CHLORIDE 0.9% 500 ML IVPB SCH ×2 (02:59→20:18)
[2019-01-09 05:29] LABS: Absolute Lymphocytes (CBC) 0.3 K/uL (0.7-4.9); Basophils % 0.2 % (0-1.3); Hematocrit 35.4 % (39.6-49.0); Lymphocytes % 1.9 % (15.3-44.8); MPV 9.5 fL (7.6-11.3); RBC Red Blood Cell Count 3.65 M/uL (4.33-5.43)
[2019-01-09 05:43] LABS: BUN Blood Urea Nitrogen 48 mg/dL (7-18); Bicarbonate 30 mmol/L (21-32); Glucose Level 139 mg/dL (74-106); Potassium 4.3 mmol/L (3.5-5.1); Sodium Level 141 mmol/L (136-145)
[2019-01-09] MEDS: LEVOTHYROXINE SOD 0.05 MG TABLET PO SCH (07:07)
[2019-01-09] MEDS: METOPROLOL XL 25 MG TAB PO SCH (07:07)
--- NOTE | 2019-01-09 08:09 | P.PN ---
Subjective Date of Service: 01/09/19 Chief Complaint: Respiratory failure No change in patient's condition Review of Systems General: Weakness Respiratory: Shortness of Breath Physical Examination - Vital Signs Temperature: 98 F Blood Pressure: 160/70 Pulse: 68 Respirations: 12 Pulse Ox (%): 90 - Physical Exam General: Alert, Cooperative Respiratory: Clear to auscultation bilaterally Cardiovascular: No edema, Regular rate/rhythm, Normal S1 S2 - Studies Medications List Reviewed: Yes Assessment & Plan - Problems (Diagnosis) (1) Respiratory failure Current Visit: Yes Status: Acute Plan: Patient still requiring significant amount of oxygen Dc levofloxacin pro calcitonin level is still negative doubt sepsis he has ARDS continue with low- dose Lasix 20 mg daily reduce Solu-Medrol to b.i.d. add Diflucan preventive fungal infection consider stopping vancomycin arterial blood gases Qualifiers: Chronicity: acute on chronic
[2019-01-09 08:58] LABS: Arterial Blood Carboxyhemoglob 1.5 % (0-1.5); Blood Gas Oxyhemoglobin 85.2 % (94-97); Blood O2 Saturation 86.8 % (92-98.5)
[2019-01-09] MEDS: ASCORBIC ACID 500 MG TABLET PO SCH (08:59)
[2019-01-09] MEDS: FLUCONAZOLE 100 MG TAB PO SCH (08:59)
[2019-01-09] MEDS: CLOPIDOGREL 75 MG TABLET PO SCH (08:59)
[2019-01-09] MEDS: THIAMINE HCL 100 MG TABLET PO SCH (08:59)
[2019-01-09] MEDS: FUROSEMIDE 20 MG/ 2ML VIAL IV SCH (08:59)
[2019-01-09] MEDS ORDERED: Meropenem 1000 MG/VIAL IV SCH (09:00)
[2019-01-09] MEDS: BRIMONIDINE TARTRATE 0.2% OPTH SCH ×2 (09:01→20:19)
[2019-01-09] MEDS: TIMOPTIC 0.5% OPTH SCH ×2 (09:01→20:20)
[2019-01-09] MEDS: Meropenem 1,000 MG in NA CHLORIDE 0.9% 100 ML IV SCH ×2 (10:44→20:18)
[2019-01-09] MEDS: ENOXAPARIN 40 MG/0.4 ML SQ SCH (16:58)
[2019-01-09] MEDS: ONDANSETRON 4 MG/2 ML VIAL IV PRN (19:06)
[2019-01-09] MEDS: ESZOPICLONE 1 MG TAB PO PRN (20:19)
[2019-01-09] MEDS: TAMSULOSIN 0.4 MG SR CAP PO SCH (20:19)
[2019-01-09] MEDS: GABAPENTIN 100 MG CAP PO SCH (20:19)
--- NOTE | 2019-01-09 20:57 | P.PN ---
Subjective Date of Service: 01/09/19 Chief Complaint: Respiratory failure HE IS MORE DYSPNEIC TODAY, NEEDS BIPAP TODAY. HE DENIES CHEST PAIN. FOR LAST TWO DAYS HE HAS BECOME MORE DYSPNEIC NEEDING BIPAP MACHINE AGAIN. TODAY HE IS WORSE THAN YESTERDAY. [facility] PROCACLCITONIN IS NORMAL I ASKED NURSE TO ADD BACK MERREM 1 GM BID THIS AM AND DR. CASTREJON ADDED DIFLUACN. THIS IS A LAST RESORT. Review of Systems 10-point ROS is otherwise unremarkable General: Weakness, Malaise Respiratory: Shortness of Breath Physical Examination - Vital Signs Temperature: 98.5 F Blood Pressure: 139/67 Pulse: 84 Respirations: 19 Pulse Ox (%): 96 - Physical Exam General: Moderate distress HEENT: Atraumatic, PERRLA, EOMI Neck: Supple, JVD not distended Respiratory: Diminished Cardiovascular: Regular rate/rhythm, Normal S1 S2 Gastrointestinal: Normal bowel sounds, No tenderness Musculoskeletal: No tenderness Integumentary: No rashes Neurological: Normal speech, Normal tone, Normal affect Lymphatics: No axilla or inguinal lymphadenopathy - Studies Medications List Reviewed: Yes Assessment And Plan - Current Problems (Diagnosis) (1) Bilateral pneumonia Current Visit: Yes Status: Acute Plan: WORSE TODAY. THIS CAN BE ARDS. DR CASTREJON GAVE HIM IV STEROIDS NOW. WILL SEE HOW HE RESPONDS. PROCALCITIONIN IS NORMAL. CONTINUE LEVAQUIN AND VANCOMYCIN. SPUTUM NO GROWTH YET. ARDS LIKELY NOW. ADDED TWO MORE MEDS NOTED IN HPI PROGNOSIS IS POOR. DISCUSSED WITH DAUGHTER IN LAW OUTSIDE THE ROOM. SHE UNDERSTOOD. Qualifiers: Pneumonia type: due to unspecified organism (2) COPD (chronic obstructive pulmonary disease) Current Visit: Yes Status: Chronic Plan: NEBS AND SHORT TERM STEROIDS. Qualifiers: COPD type: COPD with acute exacerbation Qualified Code(s): J44.1 - Chronic obstructive pulmonary disease with (acute) exacerbation
[2019-01-10] MEDS: ONDANSETRON 4 MG/2 ML VIAL IV PRN ×3 (01:31→21:38)
[2019-01-10] MEDS: HYOSCYAMINE SULF 0.125 MG TAB SL PRN ×2 (01:48→15:36)
[2019-01-10 05:08] LABS: Absolute Lymphocytes (CBC) 0.4 K/uL (0.7-4.9); Basophils % 0.1 % (0-1.3); Lymphocytes % 2.1 % (15.3-44.8); MPV 9.6 fL (7.6-11.3); RBC Red Blood Cell Count 3.58 M/uL (4.33-5.43)
[2019-01-10 05:34] LABS: BUN Blood Urea Nitrogen 51 mg/dL (7-18); Bicarbonate 29 mmol/L (21-32); Glucose Level 122 mg/dL (74-106); Potassium 4.1 mmol/L (3.5-5.1); Sodium Level 143 mmol/L (136-145)
[2019-01-10] MEDS: METOPROLOL XL 25 MG TAB PO SCH (05:49)
[2019-01-10] MEDS: LEVOTHYROXINE SOD 0.05 MG TABLET PO SCH (05:49)
[2019-01-10] MEDS: CLOPIDOGREL 75 MG TABLET PO SCH (08:56)
[2019-01-10] MEDS: ASCORBIC ACID 500 MG TABLET PO SCH (08:56)
[2019-01-10] MEDS: Meropenem 1,000 MG in NA CHLORIDE 0.9% 100 ML IV SCH ×2 (08:56→20:51)
[2019-01-10] MEDS: METHYLPREDNISOLONE 40 MG INJ IV SCH ×2 (08:56→20:52)
[2019-01-10] MEDS: FUROSEMIDE 20 MG/ 2ML VIAL IV SCH (08:56)
[2019-01-10] MEDS: THIAMINE HCL 100 MG TABLET PO SCH (08:56)
[2019-01-10] MEDS: FLUCONAZOLE 100 MG TAB PO SCH (08:56)
[2019-01-10] MEDS: BRIMONIDINE TARTRATE 0.2% OPTH SCH ×2 (08:57→20:47)
[2019-01-10] MEDS: TIMOPTIC 0.5% OPTH SCH ×2 (08:57→20:47)
--- NOTE | 2019-01-10 11:37 | P.PN ---
Subjective Date of Service: 01/10/19 Chief Complaint: Respiratory failure Patient is improving oxygen requirements have decreased no evidence of sepsis Review of Systems General: Weakness Respiratory: Shortness of Breath Physical Examination - Vital Signs Temperature: 98.1 F Blood Pressure: 105/60 Pulse: 72 Respirations: 15 Pulse Ox (%): 98 - Physical Exam General: Alert, Oriented x3 Neck: Supple Respiratory: Crackles/rales Cardiovascular: No edema, Normal S1 S2 - Studies Medications List Reviewed: Yes Assessment & Plan - Problems (Diagnosis) (1) Respiratory failure Current Visit: Yes Status: Acute Plan: Patient admitted with respiratory failure secondary to ARDS pro calcitonin level is negative CRP is currently on vancomycin and meropenem oxygenation has improved titrate sat to 90% labs reviewed at risk for fungal infection continue with present therapy elevated white count may be side effect of the steroids Qualifiers: Chronicity: acute on chronic
[2019-01-10] MEDS: VANCOMYCIN 1.5 GM in NA CHLORIDE 0.9% 500 ML IVPB SCH (15:00)
[2019-01-10] MEDS: ENOXAPARIN 40 MG/0.4 ML SQ SCH (17:37)
[2019-01-10] MEDS: ALBUTEROL 2.5 MG/3 ML NEB SOL NEB PRN (21:00)
[2019-01-10] MEDS: IPRATROPIUM BROM 0.5MG/2.5ML NEB PRN (21:00)
[2019-01-10] MEDS ORDERED: VANCOMYCIN 1.5 GM in NA CHLORIDE 0.9% 500 ML IVPB SCH (21:00)
[2019-01-10] MEDS: ENSURE ENLIVE 237 ML CAN PO SCH (21:38)
[2019-01-10] MEDS: PROMETHAZINE-DM 5 ML OSYR PO PRN (21:38)
[2019-01-10] MEDS: GABAPENTIN 100 MG CAP PO SCH (21:39)
[2019-01-10] MEDS: TAMSULOSIN 0.4 MG SR CAP PO SCH (21:39)
[2019-01-10] MEDS: ESZOPICLONE 1 MG TAB PO PRN (21:39)
[2019-01-10] MEDS ORDERED: D5 0.45 NS 1,000 ML IV SCH (22:00)
--- NOTE | 2019-01-10 23:33 | PN ---
Subjective: Mr. Tavarez is a lot better than yesterday again. Yesterday, we made some changes in the medications. He is not having severe hypoxic episodes last night and he was able to be stabilize d on a non-rebreather without using BiPAP. Objective: Vital Signs: Blood pressure 129/67, pulse is 72, temperature 98.1. HEENT: No JVD. No carotid bruits. Chest: Decreased breath sounds bilaterally. Heart: Regular. Abdomen: No guarding, no rebound, no rigidity. Pulse ox yesterday at 10:59 in the morning was 86% with a BiPAP. Now, he is 95% with a non-rebreathe r without using BiPAP. Assessment And Plan: Respiratory failure. Until yesterday, he was on vancomycin IV and Levaquin IV. After a few days, it failed to work. He still showed some improvement, but then he failed, so we a dded meropenem back. Dr. Turcios added Diflucan and IV steroids, and he is now clinically improved. We did not have time to do one medicine at a time as he was getting worse rapidly. So now currentl y, as we continued on those medications, we are still waiting for long-term acute care facility appea l being started by [facility]. Prognosis remains guarded. Patient's f amily at bedside, very supportive of him and the care. RVD/MODL Voice ID: [id number] Report ID: [id number]
[2019-01-11 05:37] LABS: Absolute Lymphocytes (CBC) 0.2 K/uL (0.7-4.9); Basophils % 0.1 % (0-1.3); Hematocrit 32.1 % (39.6-49.0); Lymphocytes % 1.5 % (15.3-44.8); MPV 9.5 fL (7.6-11.3); RBC Red Blood Cell Count 3.29 M/uL (4.33-5.43)
[2019-01-11 05:52] LABS: BUN Blood Urea Nitrogen 45 mg/dL (7-18); Bicarbonate 31 mmol/L (21-32); Glucose Level 125 mg/dL (74-106); Potassium 4.2 mmol/L (3.5-5.1); Sodium Level 143 mmol/L (136-145)
[2019-01-11] MEDS: LEVOTHYROXINE SOD 0.05 MG TABLET PO SCH (05:59)
[2019-01-11] MEDS: METOPROLOL XL 25 MG TAB PO SCH (05:59)
[2019-01-11] MEDS: ONDANSETRON 4 MG/2 ML VIAL IV PRN ×3 (07:20→21:00)
[2019-01-11 08:04] LABS: Blood Morphology Comment NOT SEEN (NOT SEEN); Platelet Estimate ADEQ
[2019-01-11] MEDS ORDERED: POLYETHYL GLY 3350 17 GM/DOSE PO ONE (08:19)
--- NOTE | 2019-01-11 08:38 | RAD REPORT ---
EXAM DESCRIPTION: Tamiko Single View01/11/2019 6:33 am CLINICAL HISTORY: Shortness of breath COMPARISON: January 08, 2019 FINDINGS: Mild worsening in the diffuse bilateral pulmonary opacities. The heart remains enlarged. PICC line remains in place IMPRESSION: Mild worsening in the moderate to marked bilateral pulmonary opacities which may repres ent pneumonia or ARDS
[2019-01-11] MEDS: ENSURE ENLIVE 237 ML CAN PO SCH ×2 (09:00→21:00)
[2019-01-11] MEDS: TIMOPTIC 0.5% OPTH SCH ×2 (09:00→21:23)
[2019-01-11] MEDS: METHYLPREDNISOLONE 40 MG INJ IV SCH ×2 (09:12→21:22)
[2019-01-11] MEDS: ASCORBIC ACID 500 MG TABLET PO SCH (09:12)
[2019-01-11] MEDS: THIAMINE HCL 100 MG TABLET PO SCH (09:12)
[2019-01-11] MEDS: CLOPIDOGREL 75 MG TABLET PO SCH (09:12)
[2019-01-11] MEDS: FLUCONAZOLE 100 MG TAB PO SCH (09:12)
[2019-01-11] MEDS: BRIMONIDINE TARTRATE 0.2% OPTH SCH ×2 (09:12→21:22)
[2019-01-11] MEDS: FUROSEMIDE 20 MG/ 2ML VIAL IV SCH (09:13)
[2019-01-11] MEDS: POLYETHYL GLY 3350 17 GM/DOSE PO SCH (09:13)
[2019-01-11] MEDS: Meropenem 1,000 MG in NA CHLORIDE 0.9% 100 ML IV SCH (09:14)
[2019-01-11] MEDS: ALBUTEROL 2.5 MG/3 ML NEB SOL NEB PRN (11:35)
[2019-01-11] MEDS: IPRATROPIUM BROM 0.5MG/2.5ML NEB PRN (11:35)
[2019-01-11] MEDS: ENOXAPARIN 40 MG/0.4 ML SQ SCH (17:00)
[2019-01-11] MEDS ORDERED: AA 5%/D20W/ELECTROLYTES-TPN 2,000 ML, Lipids 20% 250 ML with MULTIVITAMINS INJ 10 ML IV SCH ×3 (19:00)
--- NOTE | 2019-01-11 19:06 | P.PN ---
Subjective Date of Service: 01/11/19 Chief Complaint: Respiratory failure Subjective: Worsening HE IS MORE DYSPNEIC TODAY, NEEDS BIPAP TODAY. HE DENIES CHEST PAIN. FOR LAST TWO DAYS HE HAS BECOME MORE DYSPNEIC NEEDING BIPAP MACHINE AGAIN. TODAY HE IS WORSE THAN YESTERDAY. [facility] PROCACLCITONIN IS NORMAL I ASKED NURSE TO ADD BACK MERREM 1 GM BID THIS AM AND DR. CASTREJON ADDED DIFLUACN. THIS IS A LAST RESORT. HE IS GETTING FATIGUED, WEAK, NOT ABLE TO EAT. HIS OXYGENATION IS POOR AND WORSE TODAY. Review of Systems 10-point ROS is otherwise unremarkable General: Weakness, Malaise Respiratory: Shortness of Breath Physical Examination - Vital Signs Temperature: 98.5 F Blood Pressure: 137/88 Pulse: 78 Respirations: 16 Pulse Ox (%): 85 - Physical Exam General: Alert, Moderate distress, Severe distress HEENT: Atraumatic, PERRLA, EOMI Neck: Supple, JVD not distended Respiratory: Clear to auscultation bilaterally, Normal air movement Cardiovascular: Regular rate/rhythm, Normal S1 S2 Gastrointestinal: Normal bowel sounds, No tenderness Musculoskeletal: No tenderness Integumentary: No rashes Neurological: Normal speech, Normal tone, Normal affect Lymphatics: No axilla or inguinal lymphadenopathy - Studies Medications List Reviewed: Yes Assessment And Plan - Current Problems (Diagnosis) (1) Bilateral pneumonia Current Visit: Yes Status: Acute Plan: WORSE TODAY. THIS CAN BE ARDS. DR CASTREJON GAVE HIM IV STEROIDS NOW. WILL SEE HOW HE RESPONDS. PROCALCITIONIN IS NORMAL. CONTINUE LEVAQUIN AND VANCOMYCIN. SPUTUM NO GROWTH YET. ARDS LIKELY NOW. ADDED TWO MORE MEDS NOTED IN HPI PROGNOSIS IS POOR. DISCUSSED WITH DAUGHTER IN LAW OUTSIDE THE ROOM. SHE UNDERSTOOD. ARDS, SEVERE, END STAGE. POOR CONDITION. HE MAY NEED INTUBATION. Qualifiers: Pneumonia type: due to unspecified organism (2) COPD (chronic obstructive pulmonary disease) Current Visit: Yes Status: Chronic Plan: NEBS AND SHORT TERM STEROIDS. END STAGE. Qualifiers: COPD type: COPD with acute exacerbation Qualified Code(s): J44.1 - Chronic obstructive pulmonary disease with (acute) exacerbation
[2019-01-11] MEDS ORDERED: LORazepam 2 MG/ML VIAL IV PRN ×2 (20:04→23:49)
[2019-01-11] MEDS: TAMSULOSIN 0.4 MG SR CAP PO SCH (21:00)
[2019-01-11] MEDS: GABAPENTIN 100 MG CAP PO SCH (21:00)
[2019-01-11] MEDS ORDERED: PROMETHAZINE 25 MG/ML VIAL IV PRN (21:17)
[2019-01-12] MEDS: METOPROLOL XL 25 MG TAB PO SCH (04:54)
[2019-01-12] MEDS: LEVOTHYROXINE SOD 0.05 MG TABLET PO SCH (04:55)
[2019-01-12 05:42] LABS: Absolute Lymphocytes (CBC) 0.2 K/uL (0.7-4.9); Basophils % 0.1 % (0-1.3); Hematocrit 35.8 % (39.6-49.0); Lymphocytes % 0.8 % (15.3-44.8); MPV 9.1 fL (7.6-11.3); RBC Red Blood Cell Count 3.64 M/uL (4.33-5.43)
[2019-01-12 05:55] LABS: BUN Blood Urea Nitrogen 45 mg/dL (7-18); Bicarbonate 30 mmol/L (21-32); Glucose Level 200 mg/dL (74-106); Potassium 3.9 mmol/L (3.5-5.1); Sodium Level 143 mmol/L (136-145)
[2019-01-12 06:06] VITALS: BMI 24.3
[2019-01-12 06:46] LABS: Blood Morphology Comment NOT SEEN (NOT SEEN); Platelet Estimate ADEQ; Urine White Blood Cell Casts OK
[2019-01-12] MEDS ORDERED: PHENOL 1.4% ORAL SPRAY 180ML MM PRN (08:21)
[2019-01-12] MEDS: FUROSEMIDE 20 MG/ 2ML VIAL IV SCH (08:42)
[2019-01-12] MEDS: METHYLPREDNISOLONE 40 MG INJ IV SCH (08:42)
[2019-01-12] MEDS: POLYETHYL GLY 3350 17 GM/DOSE PO SCH (08:43)
[2019-01-12] MEDS: TIMOPTIC 0.5% OPTH SCH (08:43)
[2019-01-12] MEDS: CLOPIDOGREL 75 MG TABLET PO SCH (08:43)
[2019-01-12] MEDS: THIAMINE HCL 100 MG TABLET PO SCH (08:43)
[2019-01-12] MEDS: BRIMONIDINE TARTRATE 0.2% OPTH SCH (08:43)
[2019-01-12] MEDS: FLUCONAZOLE 100 MG TAB PO SCH (08:43)
[2019-01-12] MEDS: ENSURE ENLIVE 237 ML CAN PO SCH (08:43)
[2019-01-12] MEDS: ASCORBIC ACID 500 MG TABLET PO SCH (08:43)
--- NOTE | 2019-01-12 10:01 | P.PN ---
Subjective Date of Service: 01/12/19 Chief Complaint: Respiratory failure Patient's condition is deteriorating respiratory failure is worse no change with steroids or antibiotics Review of Systems General: Weakness Respiratory: Shortness of Breath Physical Examination - Vital Signs Temperature: 97.7 F Blood Pressure: 133/75 Pulse: 87 Respirations: 19 Pulse Ox (%): 93 - Physical Exam General: Unresponsive Respiratory: Crackles/rales - Studies Medications List Reviewed: Yes Assessment & Plan - Problems (Diagnosis) (1) Respiratory failure Current Visit: Yes Status: Acute Plan: Patient admitted with ARDS he is not improving still requiring 0 80% oxygen and BiPAP prognosis is very poor no change she a with antibiotics and steroids I agree with hospice care Dc all antibiotics and steroids prognosis is very poor agree with comfort care withdrawal of BiPAP and TPN white count is also elevated Qualifiers: Chronicity: acute on chronic
[2019-01-12 12:24] VITALS: O2SAT 92
[2019-01-12 14:19] VITALS: BP 165/100; TEMP 98.7
--- NOTE | 2019-01-12 18:21 | P.DS ---
Admission Date: 12/28/18 Discharge Date: 01/12/19 Disposition: HOSPICE-MEDICAL FACILITY Discharge Condition: SERIOUS Reason for Admission: Respiratory failure - Problems (1) Bilateral pneumonia Status: Acute Qualifiers: Pneumonia type: due to unspecified organism (2) COPD (chronic obstructive pulmonary disease) Status: Chronic Qualifiers: COPD type: COPD with acute exacerbation Qualified Code(s): J44.1 - Chronic obstructive pulmonary disease with (acute) exacerbation Brief History of Present Illness: MR. BRIDGES WAS IN HOSPITAL FOR PNEUMONIA THAT CLINICALLY IMPROVED LATER SENT HOME ON LEVAQUIN. HE DID WELL. I SAW HIM LAST WEEK FOR FOLLOW UP VISIT. HE STILL HAD OXYGEN ON BUT OTHERWISE ASYMPTOMATIC. HE COMES LAST NIGHT AGAIN AND SAYS HE HAS WORSENED FOR LAST 24 HOURS. HE HAS LARGE R SIDE PNEUMONIA AND UNCHANGED L SIDE PNEUMONIA. HE IS IN ICU WITH BIPAP ON. ER DOCTOR STARTED HIM ON ROCEPHIN, ZITHROMAX AND VANCOMYCIN. HE FAILED LEVAQUIN SO I NEED TO UPGRADE HIS ABX COVERAGE TO ANEROBIC AND MRSA. I STOPPED ROCEPHIN AND ZITHROMAX AND STARTED MERREM. CONTINUE VANCOMYCIN. Hospital Course: MR. BRIDGES CAME WITH PNEUMONIA AND CONVERTED TO ARDS, FAILED TO IMPROVE ON MULTIPLE ABX, STEROIDS AND LASIX. HE TODAY WITH HIS PERMISSION AND WITH WAS DISCHARGED TO [facility] WITH SURVIVAL OF HOURS TO DAYS. FAMILY IN FULL AGREEMENT. Vital Signs/Physical Exam: Temp Pulse Resp BP Pulse Ox 98.7 F 87 18 165/100 H 90 L 01/12/19 12:00 01/12/19 14:00 01/12/19 14:00 01/12/19 14:00 01/12/19 14:00 Laboratory Data at Discharge: WBC 20.5 K/uL (4.3-10.9) H* D 01/12/19 04:50 Hgb 12.1 g/dL (13.6-17.9) L 01/12/19 04:50 Hct 35.8 % (39.6-49.0) L 01/12/19 04:50 Plt Count 181 K/uL (152-406) 01/12/19 04:50 PT 14.9 SECONDS (9.5-12.5) H 12/28/18 21:00 INR 1.27 12/28/18 21:00 APTT 29.8 SECONDS (24.3-36.9) 12/28/18 21:00 Sodium 143 mmol/L (136-145) 01/12/19 04:50 Potassium 3.9 mmol/L (3.5-5.1) 01/12/19 04:50 BUN 45 mg/dL (7-18) H 01/12/19 04:50 Creatinine 0.76 mg/dL (0.55-1.3) 01/12/19 04:50 Glucose 200 mg/dL (74-106) H 01/12/19 04:50 Phosphorus 3.1 mg/dL (2.5-4.9) 01/05/19 07:30 Magnesium 2.4 mg/dL (1.8-2.4) 01/06/19 04:39 Total Bilirubin 0.4 mg/dL (0.2-1.0) 01/01/19 04:55 AST 16 U/L (15-37) 01/01/19 04:55 ALT 17 U/L (12-78) 01/01/19 04:55 Alkaline Phosphatase 108 U/L (45-117) 01/01/19 04:55 Troponin I 0.09 ng/mL (0.0-0.045) H 12/29/18 08:41 Lipase 28 U/L (73-393) L 12/28/18 21:00 Home Medications: Atorvastatin Calcium [Lipitor] 40 mg PO BEDTIME 01/29/17 Clopidogrel Bisulfate [Plavix*] 75 mg PO DAILY 01/29/17 Levothyroxine [Synthroid*] 0.05 mg PO DAILY 01/29/17 Ranitidine [Zantac*] 150 mg PO BID 01/29/17 Tamsulosin [Flomax*] 0.4 mg PO BEDTIME 01/29/17 Amlodipine [Norvasc] 5 mg PO DAILY 90 Days #90 tab 02/10/17 Albuterol Sulfate [Proair Hfa] 1 puff IH QIDP PRN 12/11/18 Gabapentin [Neurontin*] 1 tab PO BEDTIME 12/11/18 Triamterene/Hydrochlorothiazid [Dyazide 37.5-25 Capsule] 1 each PO SEECOM levoFLOXacin [Levaquin] 500 mg PO DAILY 10 Days #10 tab 12/15/18 Albuterol Sulfate [Proair Hfa] 2 puff IH QIDP PRN 12/29/18 Brimonidine Tartrate 1 drop LEFT EYE BID 12/29/18 D-Methorphan Hb/Prometh HCl [Promethazine-Dm Syrup] 5 ml PO QIDP PRN 12/29/18 Fluticasone Propionate [Flonase Allergy Relief] 1 spray IH DAILY 12/29/18 Omeprazole 20 mg PO DAILY 12/29/18 Ondansetron HCl 4 mg PO Q4HP PRN 12/29/18 Timolol Maleate/Pf [Timoptic 0.5% Ocudose Drop] 1 drop LEFT EYE BID 12/29/18
== END 2019-01-12 14:20 | disposition hospice, inpatient (51) | DRG 177 ==
LOC: ER 20:19 → ERHOLD 22:36 → 3RD-ICU 12-29 00:01
PROVIDERS: ADMIT Internal Medicine; ATTEND Internal Medicine
PROC: 5A09557 Assistance with Respiratory Ventilation, Greater than 96 Consecutive Hours, Continuous Positive Airway Pressure (ICD-10-PCS; principal; 2018-12-28)
DX: J15.212 Pneumonia due to Methicillin resistant Staphylococcus aureus (principal); J96.21 Acute and chronic respiratory failure with hypoxia; J44.1 Chronic obstructive pulmonary disease with (acute) exacerbation; I48.20 Chronic atrial fibrillation, unspecified; I10 Essential (primary) hypertension; E03.9 Hypothyroidism, unspecified; E78.5 Hyperlipidemia, unspecified; R73.03 Prediabetes; I95.9 Hypotension, unspecified
CPT/HCPCS: 36415; 71045; 71275; 74018; 80048; 80053; 80076; 80202; 81003; 81015; 82550; 82553; 82565; 82805; 82947; 83605; 83690; 83735; 83880; 84100; 84145; 84238; 84484; 85025; 85027; 85610; 85730; 86140; 87040; 87070; 87205; 87389; 93005; 93306; 94640; 94660; 94760; 96365; 96366; 96367; 96368; 96375; 97110; 97530; 99285; J0456; J0696; J1650; J1940; J2405; J2550; J2920; J2930; J2997; J3411; J3475; J7030; J7040; J7512; J7799; Q9967

== ENCOUNTER 2019-01-12 14:25 | Inpatient (IN) | payer OTHER ==
[2019-01-12] MEDS ORDERED: LORazepam 2 MG/ML VIAL IV PRN (14:28)
[2019-01-12] MEDS ORDERED: FENTANYL CITR 100 MCG/2 ML IV PRN (14:29)
[2019-01-12] MEDS ORDERED: LORazepam 2 MG/ML VIAL IV ONE (15:29)
[2019-01-12] MEDS ORDERED: ZIPRASIDONE MESYLA 20 MG/VIAL IM PRN (15:36)
[2019-01-12] MEDS ORDERED: WATER FOR INJ,STERILE 10 ML IM PRN (15:36)
[2019-01-12 16:24] VITALS: BMI 24.3
[2019-01-12 17:28] VITALS: BP 54/33
--- NOTE | 2019-01-12 18:02 | P.SSS ---
Patient History Date of Service: 01/12/19 Reason for admission: INPATIENT HOSPICE History of Present Illness: MR. BRIDGES FAILED LONG ADMISSION TO ICU FOR PNEUMONIA AND THEN ARDS. AFTER A FEW DAYS ON VANCOMYCIN AND LEVAQUIN, HE SHOWED IMPROVEMENT IN HYPOXIA BUT THEN GOT WORSE AND BECAME MORE AND MORE HYPOXIC. BIPAP WAS NOT ABLE TO CONTROL OXYGENATION. WE ADDED BACK MERREM AND IV STEROIDS WITH NO HELP. LAST TWO DAYS HE HAS HAD ROUGH NIGHTS. I ASKED HIM IF HE WANTS TO BE INTUBATED AND TO GO LT[facility]. HE MOST LIKELY WILL NOT SURVIVE ANY AGGRESSIVE INTERVENTIONS. I HAD DAILY TALKS WITH HIS FAMILY. THEY AND HIM AGREE TO WITHDRAW CARE AND WITHIN FEW HOURS HE AT 5:09 PM. HE WAS ON HOSPICE FOR LAST DAY SO WE CAN GIVE HIM APPROPRIATE COMFORT MEDICINES. Allergies codeine [Codeine] Adverse Reaction (Mild, Verified 12/30/18 01:18) nausea morphine Adverse Reaction (Mild, Verified 12/30/18 01:18) Nausea/Vomiting Home Medications: Atorvastatin Calcium [Lipitor] 40 mg PO BEDTIME 01/29/17 Clopidogrel Bisulfate [Plavix*] 75 mg PO DAILY 01/29/17 Levothyroxine [Synthroid*] 0.05 mg PO DAILY 01/29/17 Ranitidine [Zantac*] 150 mg PO BID 01/29/17 Tamsulosin [Flomax*] 0.4 mg PO BEDTIME 01/29/17 Amlodipine [Norvasc] 5 mg PO DAILY 90 Days #90 tab 02/10/17 Albuterol Sulfate [Proair Hfa] 1 puff IH QIDP PRN 12/11/18 Gabapentin [Neurontin*] 1 tab PO BEDTIME 12/11/18 Triamterene/Hydrochlorothiazid [Dyazide 37.5-25 Capsule] 1 each PO SEECOM levoFLOXacin [Levaquin] 500 mg PO DAILY 10 Days #10 tab 12/15/18 Albuterol Sulfate [Proair Hfa] 2 puff IH QIDP PRN 12/29/18 Brimonidine Tartrate 1 drop LEFT EYE BID 12/29/18 D-Methorphan Hb/Prometh HCl [Promethazine-Dm Syrup] 5 ml PO QIDP PRN 12/29/18 Fluticasone Propionate [Flonase Allergy Relief] 1 spray IH DAILY 12/29/18 Omeprazole 20 mg PO DAILY 12/29/18 Ondansetron HCl 4 mg PO Q4HP PRN 12/29/18 Timolol Maleate/Pf [Timoptic 0.5% Ocudose Drop] 1 drop LEFT EYE BID 12/29/18 - Past Medical/Surgical History Diabetic: No -: HTN -: hypothyroidism -: hyperlipidemia -: borderline DM -: Afib -: Prostate cancer (12 years ago) -: talking increases sob on 100% fio2 on bipap -: home 02 -: niddm -: glaucoma -: 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 BRIDGES TODAY EXPECTED. SEE [facility] FOR DETAIL. FAMILY WAS HAPPY WITH THE CARE HE RECEIEVED. Qualifiers: Chronicity: acute - Disposition Disposition: ROUTINE DISCHARGE
[2019-01-12 18:40] VITALS: O2SAT 43
[2019-01-15] MEDS ORDERED: SCOPOLAMINE HYDROBROMIDE PATCH TD SCH (09:00)
== END 2019-01-12 18:35 | disposition expired | DRG 951 ==
LOC: 3RD-ICU 14:25
PROVIDERS: ADMIT Internal Medicine; ATTEND Internal Medicine
DX: Z51.5 Encounter for palliative care (principal); J96.01 Acute respiratory failure with hypoxia; I10 Essential (primary) hypertension; E03.9 Hypothyroidism, unspecified; I48.91 Unspecified atrial fibrillation; Z85.46 Personal history of malignant neoplasm of prostate
CPT/HCPCS: J3010